=== PATIENT | female | born 1940 | race Caucasian/White ===

== ENCOUNTER → 2016-11-09 | Outpatient (CLI) | payer BC ==
[~2016-11-09] MED LIST: ASPI81TA28 PO; COEN150C PO; CRG625 PO; EZET10TA63 PO; FLAX100025 PO; GLUC10007 PO; LEVO100T PO; LPT10 PO; OXYC-57 PO; PLV75 PO; SYN75 PO; TRAM-10 PO; VALS-56 PO
--- NOTE | 2016-11-09 12:15 | DIAGNOSTIC IMAGING REPORT ---
BILATERAL CAROTID DOPPLER STUDY HISTORY: CAROTID BILATERAL BRUIT COMPARISON: None. TECHNIQUE: Real-time, grayscale, and color Doppler sonography of the carotid arteries was performed. Imaging reviewed in the transverse and longitudinal planes. All measurements were calculated based on NASCET criteria. FINDINGS: Antegrade flow is seen in the bilateral vertebral arteries. The brachial pressures are hemodynamically similar. Considerable plaque formation bilaterally The peak systolic velocity within the right ICA is 241. The right systolic ratio is 4.5. The peak systolic velocity within the left ICA is 347. The left systolic ratio is 3.7. IMPRESSION: 1. Considerable plaque formation bilaterally. 2. 90% stenosis left internal carotid artery. 3. 80% stenosis right internal carotid artery. 4. significant stenotic change of the extracranial carotid arteries bilaterally Electronically signed by: Josiah Granados M.D. 11/09/2016 12:14 PM Dictated Date/Time: 11/09/2016 12:12 PM
== END ==
LOC: C.ULTR 11:22
PROVIDERS: ATTEND Internal Medicine
DX: R09.89 Other specified symptoms and signs involving the circulatory and respiratory systems (principal); I65.23 Occlusion and stenosis of bilateral carotid arteries

== ENCOUNTER 2016-11-24 11:24 | Inpatient (IN) | payer BC, OTHER ==
[~2016-11-24] VITALS: Ht 162.6 cm; Wt 54.4 kg
[~2016-11-24 11:24] MED LIST changes: -EZET10TA63 PO; -LPT10 PO; -OXYC-57 PO; -PLV75 PO; -SYN75 PO; -VALS-56 PO
[2016-11-24 12:12] LABS: HEMATOCRIT 40.7 % (37-47); MEAN CELL VOLUME 91.1 fL (80-100); MEAN CORPUSCULAR HEMOGLOBIN 29.3 pg (25-34); MEAN CORPUSCULAR HGB CONC 32.2 g/dl (32-36); MEAN PLATELET VOLUME 9.5 fL (7.4-10.4); PLATELET COUNT 267 K/uL (130-400); RED BLOOD COUNT 4.47 M/uL (4.2-5.4); WHITE BLOOD COUNT 5.01 K/uL (4.8-10.8)
[2016-11-24 12:22] LABS: PARTIAL THROMBOPLASTIN RATIO 1.1; PROTHROMBIN TIME (PATIENT) 10.9 SECONDS (9.0-12.0)
[2016-11-24 12:33] LABS: BUN/CREATININE RATIO 24.6 (10-20); CREATININE 0.84 mg/dl (0.60-1.20); POTASSIUM 4.1 mmol/L (3.5-5.1)
[2016-11-24 12:35] LABS: ALB/GLOB RATIO 1.2 (0.9-2)
--- NOTE | 2016-11-24 13:33 | DIAGNOSTIC IMAGING REPORT ---
HEAD CT NONCONTRAST CT DOSE: 614.27 mGy.cm HISTORY: Right hand numbness. Right facial droop. TECHNIQUE: Multiaxial CT images of the head were performed without the use of intravenous contrast. Automated exposure control was utilized for this study. Comparison: Brain MRI 12/29/2009. Findings: The paranasal sinuses and mastoid air cells are clear. The calvarium and skull base are intact. There is no mass, hematoma, midline shift, acute infarct. White matter hypodensity is nonspecific but suggestive of microvascular ischemic change. The ventricles and sulci are within normal limits for age. Impression: No acute intracranial abnormality. Mild microvascular ischemic changes are again noted. Electronically signed by: Dru Frazier M.D. 11/24/2016 1:32 PM Dictated Date/Time: 11/24/2016 1:27 PM
[2016-11-24] MEDS ORDERED: ASPIRIN 81 MG CHEW PO STA (13:39)
[2016-11-24] MEDS ORDERED: VALS-56 PO (14:09)
[2016-11-24] MEDS ORDERED: SYN75 PO (14:09)
[2016-11-24] MEDS ORDERED: LPT10 PO (14:12)
[2016-11-24] MEDS ORDERED: MAGNESIUM HYDROXIDE SUSP 30 ML UDC PO PRN (14:45)
[2016-11-24] MEDS ORDERED: ACETAMINOPHEN 325 MG TAB PO PRN (14:45)
[2016-11-24] MEDS ORDERED: TRAMADOL HCL 50 MG TAB PO PRN (14:45)
[2016-11-24] MEDS ORDERED: ONDANSETRON INJ 2 MG/ML 2 ML VIAL IV PRN (14:45)
[2016-11-24] MEDS ORDERED: POLYETHYLENE (MIRALAX) 17 GM PACK PO PRN (14:45)
[2016-11-24] MEDS ORDERED: ALUMINUM/MAGNESIUM/SIMETH (MAALOX MAX) 30 ML UDC PO PRN (14:45)
--- NOTE | 2016-11-24 16:07 | History and Physical ---
History & Physical Date & Time of Service: November 24, 2016 at 15:49 Chief Complaint: Rt Hand Numb, Tongue Numb Primary Care Physician: Dheeraj Cancino M.D. History of Present Illness Source: patient 76 y/o F Hx B/L carotid stenosis, breast CA, Hypothyroidism, HPL, chemo-related cardiomyopathy . Pt recently underwent a carotid US revealing 80% stenosis on R and 90% on L. She had an appt with vascular surgery in the coming week. The pt developed R sided numbness limited to her R arm, R tongue and R LE. She denies CP, palpitations, SOB, MÁRQUEZ or visual changes. Her symptoms have resolved at the time of admission. 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 - no recent echo - 2004 echo with EF 25-30% Surgical Problems: (1) History of modified radical mastectomy of left breast Permanent Comment: 07/11/1996 Status: Resolved (2) History of partial hysterectomy Permanent Comment: 07/11/1980 Status: Resolved Family History Cancer Heart disease Lung disease Social History Smoking Status: Former Smoker Drug Use: none Marital Status: Occupational Status: retired Immunizations History of Tetanus Vaccine?: Unknown History of Pneumococcal: No History of Hepatitis B Vaccine: No Multi-Drug Resistant Organisms History of MDRO: No Allergies Coded Allergies: Ciprofloxacin (Unverified Allergy, Severe, SISTER ALMOST . DOESN'T WANT THE RISK, 11/24/16) Propylthiouracil (Verified Allergy, Mild, 11/24/16) Doxycycline (Verified Allergy, Unknown, UNKNOWN, 11/24/16) Statins (Verified Allergy, Unknown, MUSCLE PAIN, 11/24/16) Uncoded Allergies: SULFA (Allergy, Unknown, RASH, 08/05/14) Home Medications Scheduled Aspirin (Aspirin Ec), 81 MG PO DAILY Atorvastatin (Atorvastatin Calcium), 0.5 TAB PO DAILY Carvedilol (Carvedilol), 6.25 MG PO BID Coenzyme Q10 (Ubidecarenone) (Co Q-10), 200 MG PO QAM Flaxseed (Linseed) (Flax Seed Oil), 1,000 MG PO TID Levothyroxine Sodium (Synthroid), 1 TAB PO DAILY Valsartan (Valsartan), 1 TAB PO DAILY Scheduled PRN Tramadol (Ultram), 50 MG PO Q4H PRN for Pain Review of Systems Constitutional: No chills, No fever, No sweats Eyes: No eye pain, No worsening of vision ENT: No hearing loss, No nasal symptoms, No unusual epistaxis Respiratory: No cough, No sputum, No wheezing Cardiovascular: No PND, No chest pain, No orthopnea Abdomen: No nausea, No pain, No vomiting Musculoskeletal: No joint pain, No muscle pain Genitourinary - Female: No dysuria, No hematuria, No urinary frequency, No urinary incontinence, No urinary retention, No urinary urgency Neurologic: + numbness/tingling, No memory loss, No paralysis, No weakness Psychiatric: No depression symptoms Endocrine: No fatigue Hematologic / Lymphatic: No abnormal bleeding/bruising Integumentary: No rash Allergic / Immunologic: No environmental allergies Physical Exam Vital Signs Date Time Temp Pulse Resp B/P Pulse Ox O2 Delivery O2 Flow Rate FiO2 11/24/16 15:43 75 18 155/71 96 Room Air 11/24/16 14:54 66 18 133/87 100 Room Air 11/24/16 12:47 64 18 129/76 95 Room Air 11/24/16 12:19 65 11/24/16 11:53 100 11/24/16 11:28 36.7 71 18 142/79 100 Room Air General Appearance: WD/WN, no apparent distress Head: normocephalic, atraumatic Eyes: normal inspection, PERRL, EOMI ENT: normal ENT inspection, pharynx normal Neck: supple, no JVD Respiratory/Chest: chest non-tender, lungs clear, normal breath sounds, no respiratory distress, no accessory muscle use Cardiovascular: regular rate, rhythm, no edema, no gallop, no JVD, no murmur, normal peripheral pulses Abdomen/GI: normal bowel sounds, non tender, soft Back: normal inspection, no CVA tenderness Extremities/Musculoskelatal: normal inspection, no calf tenderness, normal capillary refill, no pedal edema, normal range of motion 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, alert, normal mood/affect, oriented x 3, + pertinent finding (Pt may have a very slight drift on the R - distal R numbness on lat aspect of dorsal palm - coordination is largely intact ) Skin: normal color, warm/dry Diagnostics Laboratory Results Results Past 24 Hours Test 11/24/16 11:55 Range/Units White Blood Count 5.01 4.8-10.8 K/uL Red Blood Count 4.47 4.2-5.4 M/uL Hemoglobin 13.1 12.0-16.0 g/dL Hematocrit 40.7 37-47 % Mean Corpuscular Volume 91.1 80-100 fL Mean Corpuscular Hemoglobin 29.3 25-34 pg Mean Corpuscular Hemoglobin Concent 32.2 32-36 g/dl RDW Standard Deviation 43.0 36.4-46.3 fL RDW Coefficient of Variation 12.8 11.5-14.5 % Platelet Count 267 130-400 K/uL Mean Platelet Volume 9.5 7.4-10.4 fL Prothrombin Time 10.9 9.0-12.0 SECONDS Prothromb Time International Ratio 1.0 0.9-1.1 Activated Partial Thromboplast Time 27.3 21.0-31.0 SECONDS Partial Thromboplastin Ratio 1.1 Sodium Level 140 136-145 mmol/L Potassium Level 4.1 3.5-5.1 mmol/L Chloride Level 104 98-107 mmol/L Carbon Dioxide Level 33 21-32 mmol/L Anion Gap 3.0 3-11 mmol/L Blood Urea Nitrogen 21 7-18 mg/dl Creatinine 0.84 0.60-1.20 mg/dl Est Creatinine Clear Calc Drug Dose 49.7 ml/min Estimated GFR () 78.8 Estimated GFR (Non- 68.0 BUN/Creatinine Ratio 24.6 10-20 Random Glucose 94 70-99 mg/dl Calcium Level 9.0 8.5-10.1 mg/dl Total Bilirubin 0.7 0.2-1 mg/dl Aspartate Amino Transf (AST/SGOT) 18 15-37 U/L Alanine Aminotransferase (ALT/SGPT) 20 12-78 U/L Alkaline Phosphatase 75 45-117 U/L Total Protein 7.0 6.4-8.2 gm/dl Albumin 3.8 3.4-5.0 gm/dl Globulin 3.2 2.5-4.0 gm/dl Albumin/Globulin Ratio 1.2 0.9-[address] head - non acute findings Carotid Doppler - B/L stenosis - 90% L Impression Assessment and Plan 76 y/o F Hx B/L carotid stenosis, breast CA, Hypothyroidism, HPL, chemo-related cardiomyopathy. Pt recently underwent a carotid US revealing 80% stenosis on R and 90% on L. She had an appt with vascular surgery in the coming week. The pt developed R sided numbness limited to her R arm, R tongue and R LE. She denies CP, palpitations, SOB, MÁRQUEZ or visual changes. Her symptoms have resolved at the time of admission. 1) TIA - likely related to carotid stenosis - vascular contacted and made aware - will see pt AM - placed on ASA and Statin Tx. MRI/MRA pending. She is only able to tolerate a low dose of stating as she hay myalgias with a higher dose. 2) HPL - low dose Statin as tolerated 3) Hypothyroid - cont Synthroid 4) History states she had severe chemo-related cardiomyopathy previously which may have improved. She will remain on Coreg - ARB held due to TIA. Pt is euvolemic. Total time for this admit including review of labs, meds, records, imaging - discussion with pt, ER attending and vascular surgeon - 38 min VTE Prophylaxis VTE Risk Assessment Done? Y/N: Yes Risk Level: Moderate
[2016-11-24 16:32] VITALS: BP 148/75; PULSE 71; TEMP 36.7; O2SAT 98; Ht 162.6 cm; Wt 54.4 kg
[2016-11-24] MEDS: D5W AND NSS 1,000 ML IV SCH (18:23)
[2016-11-24 18:59] VITALS: BP 109/63; PULSE 68; TEMP 36.8; O2SAT 97
--- NOTE | 2016-11-24 20:12 | EMERGENCY ROOM VISIT NOTE ---
History Report prepared by [place]ade: Edvin Joseph Under the Supervision of: Dr. Carmine Oneil M.D. First contact with patient: 12:46 Chief Complaint: NEURO SYMPTOMS Stated Complaint: RT HAND NUMB, TONGUE NUMB Nursing Triage Summary: pt c/o right hand getting numb then rubbed it got better then right side of tongue numb sx now resolved, sx started at 1045 History of Present Illness The patient is a 76 year old female who presents to the Emergency Room with and complains of constant neurological problems beginning prior to arrival. The patient states that she currently feels great and has no current numbness or tingling. She notes that the numbness in her right hand lasted 2 minutes and then the numbness when to her right arm for 5 minutes. José Luis notes that the patient presented facial droop, but she states that she did not have trouble speaking. The patient reports that she has never had symptoms like this before. She notes that she has a history of high cholesterol, breast cancer, CHF, and a TIA. The patient states that she stopped taking baby aspirin because she said it gave her more problems. Pt denies LOC, headache, fevers, chills, diaphoresis , visual changes, neck pain, chest pain, breathing difficulties, nausea, vomiting, abdominal pain, back pain, melena, hematochezia, urinary symptoms, numbness, weakness, lymphadenopathy, rash, or other complaints. Source of History: patient Onset: prior to arrival Position: head Quality: other (neurological) Timing: constant Review of Systems See HPI for pertinent positives and negatives. A total of ten systems were reviewed and were otherwise negative. Past Medical & Surgical Medical Problems: (1) Arthritis (2) Carotid stenosis, bilateral (3) Dyslipidemia (4) HX: breast cancer (5) Hypothyroidism (6) TIA (transient ischemic attack) Surgical Problems: (1) History of modified radical mastectomy of left breast (2) History of partial hysterectomy Family History Cancer Heart disease Lung disease Social History Smoking Status: Former Smoker Drug Use: none Marital Status: Housing Status: lives with family Occupation Status: retired Current/Historical Medications Scheduled Aspirin (Aspirin Ec), 81 MG PO DAILY Atorvastatin (Atorvastatin Calcium), 0.5 TAB PO DAILY Carvedilol (Carvedilol), 6.25 MG PO BID Coenzyme Q10 (Ubidecarenone) (Co Q-10), 200 MG PO QAM Flaxseed (Linseed) (Flax Seed Oil), 1,000 MG PO TID Levothyroxine Sodium (Synthroid), 1 TAB PO DAILY Valsartan (Valsartan), 1 TAB PO DAILY Scheduled PRN Tramadol (Ultram), 50 MG PO Q4H PRN for Pain Allergies Coded Allergies: Ciprofloxacin (Unverified Allergy, Severe, SISTER ALMOST . DOESN'T WANT THE RISK, 11/24/16) Propylthiouracil (Verified Allergy, Mild, 11/24/16) Doxycycline (Verified Allergy, Unknown, UNKNOWN, 11/24/16) Statins (Verified Allergy, Unknown, MUSCLE PAIN, 11/24/16) Uncoded Allergies: SULFA (Allergy, Unknown, RASH, 08/05/14) Physical Exam Vital Signs Date Time Temp Pulse Resp B/P Pulse Ox O2 Delivery O2 Flow Rate FiO2 11/24/16 12:47 64 18 129/76 95 Room Air 11/24/16 12:19 65 11/24/16 11:53 100 11/24/16 11:28 36.7 71 18 142/79 100 Room Air Physical Exam GENERAL: Awake, alert, well appearing, no distress HENT: Normocephalic, atraumatic. TM's normal. Oropharynx unremarkable. EYES: PERRL. EOMI. Normal conjunctiva. Sclera non-icteric. NECK: Supple. No nuchal rigidity. FROM. No JVD. Bruit bilateral. RESPIRATORY: CTA CARDIAC: RRR. No murmur. ABDOMEN: Soft, non distended. No tenderness to palpation. No rebound or guarding. No masses. RECTAL: Deferred. MUSCULOSKELETAL: Unremarkable. No edema. No discoloration. Gross motor strength symmetric. NEURO: Cranial nerves 2-12 grossly intact. Normal sensorium. No sensory or motor deficits noted. Speech normal. No pronator drift. Negative rhomberg. SKIN: No rash or jaundice noted. LYMPH: No adenopathy. Medical Decision & Procedures ER Provider Diagnostic Interpretation: Radiology results as stated below per my review and radiologist interpretation HEAD CT NONCONTRAST CT DOSE: 614.27 mGy.cm HISTORY: Right hand numbness. Right facial droop. TECHNIQUE: Multiaxial CT images of the head were performed without the use of intravenous contrast. Automated exposure control was utilized for this study. Comparison: Brain MRI 12/29/2009. Findings: The paranasal sinuses and mastoid air cells are clear. The calvarium and skull base are intact. There is no mass, hematoma, midline shift, acute infarct. White matter hypodensity is nonspecific but suggestive of microvascular ischemic change. The ventricles and sulci are within normal limits for age. Impression: No acute intracranial abnormality. Mild microvascular ischemic changes are again noted. Electronically signed by: Dru Frazier M.D. 11/24/2016 1:32 PM Dictated Date/Time: 11/24/2016 1:27 PM Laboratory Results 11/24/16 11:55 11/24/16 11:55 Test 11/24/16 11:55 Red Blood Count 4.47 M/uL (4.2-5.4) Mean Corpuscular Volume 91.1 fL (80-100) Mean Corpuscular Hemoglobin 29.3 pg (25-34) Mean Corpuscular Hemoglobin Concent 32.2 g/dl (32-36) RDW Standard Deviation 43.0 fL (36.4-46.3) RDW Coefficient of Variation 12.8 % (11.5-14.5) Mean Platelet Volume 9.5 fL (7.4-10.4) Prothrombin Time 10.9 SECONDS (9.0-12.0) Prothromb Time International Ratio 1.0 (0.9-1.1) Activated Partial Thromboplast Time 27.3 SECONDS (21.0-31.0) Partial Thromboplastin Ratio 1.1 Anion Gap 3.0 mmol/L (3-11) Est Creatinine Clear Calc Drug Dose 49.7 ml/min Estimated GFR () 78.8 Estimated GFR (Non- 68.0 BUN/Creatinine Ratio 24.6 (10-20) Calcium Level 9.0 mg/dl (8.5-10.1) Total Bilirubin 0.7 mg/dl (0.2-1) Aspartate Amino Transf (AST/SGOT) 18 U/L (15-37) Alanine Aminotransferase (ALT/SGPT) 20 U/L (12-78) Alkaline Phosphatase 75 U/L (45-117) Total Protein 7.0 gm/dl (6.4-8.2) Albumin 3.8 gm/dl (3.4-5.0) Globulin 3.2 gm/dl (2.5-4.0) Albumin/Globulin Ratio 1.2 (0.9-2) Laboratory results reviewed by me Medications Administered Medications (Trade) Dose Ordered Sig/Calli Route Start Time Stop Time Status Last Admin Dose Admin Aspirin (Aspirin Chew) 324 mg NOW STAT PO 11/24/16 13:39 11/24/16 13:40 DC 11/24/16 13:55 324 MG ECG Indication: weakness Rate (beats per minute): 66 Rhythm: sinus rhythm Findings: Q waves (Septal), no acute ischemic change, no ectopy ED Course 1257: The patient was evaluated in room B10. A complete history and physical exam was performed. 1339: Ordered Aspirin 324mg PO 1340: Upon reexamination, the patient was resting easy. I discussed the test results and treatment plan with Reuben Liu. The patient will be evaluated for further management. Medical Decision Triage Nursing notes reviewed. The patient's presentation and history were concerning for neurologic symptoms. Etiologies such as CVA, TIA, metabolic, infection, hypo/hyperglycemia, electrolyte abnormalities, cardiac sources, intracerebral event, toxicologic, neurologic, as well as others were entertained. The patient was evaluated. She had strokelike symptoms that have resolved. She does have pretty significant bruits on physical examination and notes pending vascular surgery evaluation. Her CBC, chemistry panel, LFTs, EKG and CT were unremarkable. The patient was given aspirin. Given her findings the patient will need further evaluation and management in the hospital as she is very high risk for stroke. Consultation was made with internal medicine. The patient was informed. I did have case management meet with the patient as she had some concerns about her admission status. The chart was completed utilizing [employer] Speech voice recognition software. Grammatical errors, random word insertions, pronoun errors, and incomplete sentences are an occasional consequence of this system due to software limitations, ambient noise, and hardware issues. Any formal questions or concerns about the content, text, or information contained within the body of this dictation should be directly addressed to the physician for clarification. Consults Time Called: 1337 Consulting Physician: Mario Liuist Returned Call: 1340 I discussed the patient's case with Reuben Liu. The patient will be evaluated for further treatment. Impression Primary Impression: Stroke-like symptoms Additional Impression: Carotid stenosis Scribe Attestation The scribe's documentation has been prepared under my direction and personally reviewed by me in its entirety. I confirm that the note above accurately reflects all work, treatment, procedures, and medical decision making performed by me. Departure Information Dispostion Being Evaluated By Hospitalist Referrals Dheeraj Cancino M.D. (PCP) Patient Instructions [facility] Problem Qualifiers
[2016-11-24] MEDS: HEPARIN SOD 5000 UNIT/0.5 ML CARP SQ SCH (20:59)
[2016-11-24] MEDS: CARVEDILOL 6.25 MG TAB PO SCH (20:59)
[2016-11-24 23:21] VITALS: BP 119/71; PULSE 74; TEMP 36.4; O2SAT 99
[2016-11-25 03:30] VITALS: BP 119/71; PULSE 74; TEMP 36.4; O2SAT 99
[2016-11-25] MEDS: D5W AND NSS 1,000 ML IV SCH (04:05)
[2016-11-25] MEDS: LEVOTHYROXINE 75 MCG TAB PO SCH ×2 (05:48→10:20)
[2016-11-25] MEDS: HEPARIN SOD 5000 UNIT/0.5 ML CARP SQ SCH ×2 (06:14→14:00)
[2016-11-25 07:08] VITALS: BP 117/71; PULSE 71; TEMP 36.9; O2SAT 99
[2016-11-25 08:00] VITALS: O2SAT 99
[2016-11-25] MEDS: CARVEDILOL 6.25 MG TAB PO SCH (08:59)
[2016-11-25] MEDS ORDERED: ASPIRIN 81 MG ECTAB PO SCH (09:00)
[2016-11-25] MEDS ORDERED: CLOPIDOGREL BISULFATE 75 MG TAB PO ONE (09:00)
[2016-11-25] MEDS ORDERED: ATORVASTATIN 10 MG TAB PO SCH (09:00)
[2016-11-25] MEDS ORDERED: PLV75 PO (09:03)
--- NOTE | 2016-11-25 09:05 | Surgery Consultation ---
Consultation Date of Service November 25, 2016. Chief Complaint Bilateral carotid stenosis with left hemisphere tia History of Present Illness The patient is a 76 year old female who was admitted yesterday after developing numbness of her right hand followed by numbness of the right side of her tongue. This has all resolved. She denies any speech difficulty or extremity weakness. She does not know if she had any facial droop at the time. The tia last just a few minutes and then resolved. She denies any residual at this time. Vitals Vital Signs Past 12 Hours Date Time Temp Pulse Resp B/P Pulse Ox O2 Delivery O2 Flow Rate FiO2 11/25/16 08:00 99 Room Air 11/25/16 07:08 36.9 71 20 117/71 99 Room Air 11/25/16 03:30 Room Air 11/25/16 03:30 36.4 74 16 119/71 99 Room Air 11/24/16 23:30 Room Air 11/24/16 23:21 36.4 74 16 119/71 99 Room Air Allergies Coded Allergies: Ciprofloxacin (Unverified Allergy, Severe, SISTER ALMOST . DOESN'T WANT THE RISK, 11/24/16) Propylthiouracil (Verified Allergy, Mild, 11/24/16) Doxycycline (Verified Allergy, Unknown, UNKNOWN, 11/24/16) Statins (Verified Allergy, Unknown, MUSCLE PAIN, 11/24/16) Uncoded Allergies: SULFA (Allergy, Unknown, RASH, 08/05/14) Home Medications Scheduled Aspirin (Aspirin Ec), 81 MG PO DAILY Atorvastatin (Atorvastatin Calcium), 0.5 TAB PO DAILY Carvedilol (Carvedilol), 6.25 MG PO BID Clopidogrel Bisulfate (Clopidogrel), 75 MG PO QAM Coenzyme Q10 (Ubidecarenone) (Co Q-10), 200 MG PO QAM Flaxseed (Linseed) (Flax Seed Oil), 1,000 MG PO TID Levothyroxine Sodium (Synthroid), 1 TAB PO DAILY Valsartan (Valsartan), 1 TAB PO DAILY Scheduled PRN Tramadol (Ultram), 50 MG PO Q4H PRN for Pain Problem List Medical Problems: (1) Arthritis (2) Carotid stenosis, bilateral (3) Dyslipidemia (4) HX: breast cancer (5) Hypothyroidism (6) TIA (transient ischemic attack) Surgical Problems: (1) History of modified radical mastectomy of left breast (2) History of partial hysterectomy Surgical / Medical History Hx Cardiac Surgery: No Hx Abdominal Surgery: Yes (C-SECTIONS, HYSTERECTOMY) Hx Cancer Surgery: Yes (LEFT MASTECTOMY AND LYMPHADECTOMY) Hx Thoracic Surgery: Yes (LEFT MASTECTOMY AND LYMPHADECTOMY) Hx Orthopedic: No Hx Urinary Tract Surgery: No Past Medical/Surgical History: Arthritis, Cancer (breast), CHF, High Cholesterol, Thyroid Disease, Other (cardiomyopathy) Family History Cancer Heart disease Lung disease Social History Smoking Status: Former Smoker Hx Tobacco Use In Past Year?: No Hx Alcohol Use - Type & Amnt: No Hx Substance Use -Type & Amnt: No Review of Systems Constitutional: No chills, No diaphoresis, No fatigue, No fever, No malaise, No problem reported, No sweats, No weakness, No weight gain, No weight loss Respiratory: No MEYER, No PND, No cough, No cyanosis, No dyspnea, No hemoptysis, No orthopnea, No problem reported, No short of breath, No sputum production, No stridor, No wheezing Cardiovascular: No chest pain, No chest pressure, No chest tightness, No cyanosis, No diaphoresis, No edema, No intermittent claudication, No lightheadedness, No mumur, No orthopnea, No palpitations, No paroxysmal nocturnal dyspnea, No problem reported, No syncope Gastrointestinal: No abdominal pain, No anorexia, No appetite changes, No belching, No constipation, No diarrhea, No dysphagia, No flatulence, No food intolerance, No heartburn, No hematemesis, No hematochezia, No hemorrhoids, No indigestion, No nausea, No problem reported, No rectal bleeding, No stool changes, No vomiting Genitourinary - Female: No breast problems, No dysmenorrhea, No dysuria, No hematuria, No hesitancy, No menorrhagia, No metrorrhagia, No , No problem reported, No rash, No urinary frequency, No urinary incontinence, No urinary retention, No urinary urgency, No vaginal bleeding, No vaginal discharge , No vaginal itching, No vulvadynia Musculoskeletal: No back pain, No gout, No joint pain, No joint swelling, No muscle pain, No muscle stiffness, No muscle weakness, No neck pain, No problem reported Neurologic: No LOC, No dizziness, No headache, No lethargy, No memory loss, No numbness, No paresthesia, No pre-existing deficit, No problem reported, No seizures, No tics, No tingling, No tremors, No vertigo, No weakness Psychiatric: No alcohol abuse, No anxiety, No auditory hallucinations, No depression, No drug abuse, No homicidal ideation, No mood changes, No problem reported, No suicidal ideation, No visual hallucinations Physical Exam Constitutional: General Apperance: heathly-appearing, well-nourished, well-developed Level of Distress: NAD Ambulation: ambulating normally Psychiatric: Mental Status: active & alert, normal mood, normal affect Orientation: oriented except where noted, to time, to place, to person Memory: recent memory normal, remote memory normal Head: normocephalic, atraumatic Lungs: Auscultation: breath sounds normal Cardiovascular: Heart Auscultation: RRR Peripheral Pulses: Bruits: carotid bruit on the left, carotid bruit on the right Carotid Pulse: normal on the left, normal on the right Radial Pulse: normal on the left, normal on the right Femoral Pulse: normal on the left, normal on the right Abdomen: Inspection & Palpation: soft Musculoskeletal: normal, normal strength (5/5 throughout), normal tone Extremities: Upper Right: no cyanosis, no edema, no varicosities, no palpable cord, no clubbing, no ulcers, no mottling Upper Left: no cyanosis, no edema, no palpable cord, no clubbing, no ulcers , no mottling Lower Right: no cyanosis, no edema, no varicosities, no palpable cord, no clubbing, no ulcers, no mottling Lower Left: no cyanosis, no edema, no varicosities, no palpable cord, no clubbing, no ulcers, no mottling Neurologic: Cranial Nerves: grossly intact Sensation: grossly intact Assessment and Plan Imp: Bilateral internal carotid artery stenosis with left hemisphere tia Plan: Patient to have CTA of neck and head today. Cardiac consult ordered for pre op for CEA. History of cardiomyopathy We well see her in the office Tuesday and most likely plan on CEA next Tuesday. Will start her on plavix and will continue it through surgery. Thank you very much for letting me participate in the care of this patient.
--- NOTE | 2016-11-25 09:07 | Discharge Instructions ---
Discharge Instructions Date of Service November 25, 2016. Admission Reason for Admission: Carotid Stenosis, Tia Discharge Discharge Diagnosis / Problem: TIA, bilateral carotid stenosis Discharge Goals Goal(s): Improve function, Therapeutic intervention (plan for carotid endarterectomy next week) Activity Recommendations Activity Limitations: resume your previous activity Lifting Limitations: none Exercise/Sports Limitations: as tolerated Shower/Bathe: no limitations . Instructions / Follow-Up Instructions / Follow-Up Medications: - PLAVIX: started here in the hospital, 75mg daily, this replaces aspirin so you should stop taking aspirin 81mg daily continue all other previous medications FOLLOW UP - Dr. Sutton on Tuesday to discuss carotid endarterectomy Risk Factors for Stroke: You can reduce your chances of stroke by working with your medical provider to adopt a healthy lifestyle. Some specific ways to lower your chance of stroke are: * If you are a smoker, now is the time to stop smoking cigarettes * If you are diabetic, improve the control of your blood sugars * Avoid excessive amounts of alcohol * Control high blood pressure * Lose weight if you are overweight * Be sure to lead an active lifestyle * Eat a healthy diet low in salt, cholesterol and fat You should know about other risk factors for stroke that you are unable to control. These include: * Age 55 years or older * Male gender * Certain racial groups: , or / * Family History of Stroke, Mini stroke or Heart Attack * Sickle Cell Disease Follow Up: It is important for you to keep your follow up appointments with your medical provider. Current Hospital Diet Patient's current hospital diet: AHA Diet (Heart Healthy) Discharge Diet Recommended Diet: AHA Diet (Heart Healthy) Pending Studies Studies pending at discharge: no Laboratory Results Last Resulted CBC 11/24/16 11:55 Last Resulted BMP 11/24/16 11:55 Medical Emergencies . Who to Call and When: Medical Emergencies: Call 911 immediately if you experience any of the following warning signs and symptoms of Stroke: * Sudden numbness or weakness of the face, arm or leg, especially on one side of the body * Sudden confusion, trouble speaking or understanding * Sudden trouble seeing in one or both eyes * Sudden trouble walking, dizziness, loss of balance or coordination * Sudden severe headache with no cause Do not delay calling 911 if you experience any warning signs or symptoms of a stroke. Delay in seeking medical attention may affect what treatments can be given to you. . Non-Emergent Contact Non-Emergency issues call your: Surgeon Call Non-Emergent contact if: you have any medication questions . . "Provider Documentation" section prepared by Haja Jimenez. . Supervisor Sample Recommendations Supervisor Sample Recommendations: Dr. Sutton: recommends CT angiogram head and neck today, cardiology consultation (done in house) and follow up next Tuesday to plan CEA Stroke Core Measures Reason no t-PA for Stroke: Treatment not indicated Reason no antithrom by day 2: Treatment provided - N/A Reason no antithrom at D/C: Treatment provided - N/A Reason no statin at D/C: Treatment provided - N/A Reason no anticoag w/a fib: Treatment not indicated VTE Core Measure Inpt VTE Proph given/why not?: Unfractionated heparin SQ PA Drug Monitoring Program Search Results: no issues identified
[2016-11-25] MEDS ORDERED: OPTIRAY 320 IV PRN (09:15)
--- NOTE | 2016-11-25 11:54 | Discharge Summary ---
Discharge Summary Date of Service November 25, 2016. 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, chemotherapy related Immunizations: History of Tetanus Vaccine?: Unknown History of Pneumococcal: No History of Hepatitis B Vaccine: No Procedures: none Consultations: Cardiology Vascular surgery Medication Reconciliation New Medications: Clopidogrel Bisulfate (Clopidogrel) 75 Mg Tab 75 MG PO QAM, #30 TAB 3 Refills Continued Medications: Atorvastatin (Atorvastatin Calcium) 10 Mg Tab 0.5 TAB PO DAILY Carvedilol (Carvedilol) 6.25 Mg Tab 6.25 MG PO BID Coenzyme Q10 (Ubidecarenone) (Co Q-10) 150 Mg Cap 200 MG PO QAM Flaxseed (Linseed) (Flax Seed Oil) 1 Cap Cap 1000 MG PO TID Levothyroxine Sodium (Synthroid) 75 Mcg Tab 1 TAB PO DAILY BRAND NAME Tramadol (Ultram) 50 Mg Tab 50 MG PO Q4H PRN for Pain Valsartan (Valsartan) 40 Mg Tab 1 TAB PO DAILY Discontinued Medications: Aspirin (Aspirin Ec) 81 Mg Tab 81 MG PO DAILY Discharge Exam Patient feeling much better, she is hungry and has a headache because she needs to eat. Otherwise doing well. Discussed case with Dr. Sutton, he ordered CTA head and neck and asked cardiology to evaluate h/o cardiomyopathy. He will see patient in the office on Tuesday and set up carotid endarterectomy Review of Systems: Constitutional: + problem reported (mild headache), No chills, No fatigue, No fever, No sweats, No weakness, No weight loss Eyes: No diplopia, No discharge, No eye pain, No problem reported, No redness, No worsening of vision ENT: No dental problems, No hearing loss, No nasal symptoms, No problem reported, No sore throat, No tinnitus, No trouble swallowing, No unusual epistaxis Respiratory: No cough, No dyspnea at rest, No dyspnea on exertion, No hemoptysis, No problem reported, No shortness of breath, No sputum, No wheezing Cardiovascular: No PND, No chest pain, No claudication, No edema, No orthopnea, No palpitations, No problem reported Abdomen: No GI bleeding, No constipation, No diarrhea, No nausea, No pain, No problem reported, No vomiting Musculoskeletal: No calf pain, No joint pain, No muscle pain, No problem reported, No swelling Genitourinary - Female: No dysuria, No urinary frequency, No urinary incontinence, No urinary urgency Neurologic: No balance problems, No memory loss, No numbness/tingling, No paralysis, No problem reported, No vertigo, No weakness Psychiatric: No anhedonism, No anxiety, No depression symptoms, No insomnia , No problem reported, No substance abuse Endocrine: No excessive thirst, No excessive urination, No fatigue, No problem reported Hematologic / Lymphatic: No abnormal bleeding/bruising, No clotting problems , No night sweats, No problem reported, No swollen lymph nodes Integumentary: No bleeding, No color change, No itch, No new/changing skin lesions, No problem reported, No rash Physical Exam: General Appearance: WD/WN, no apparent distress Eyes: normal inspection, EOMI, sclerae normal ENT: normal ENT inspection, hearing grossly normal, pharynx normal Neck: supple, no adenopathy, no JVD, trachea midline, + pertinent finding ( bilateral carotid bruits) Respiratory/Chest: chest non-tender, lungs clear, normal breath sounds, no respiratory distress, no accessory muscle use Cardiovascular: regular rate, rhythm, no edema, no gallop, no JVD, no murmur , normal peripheral pulses Abdomen / GI: normal bowel sounds, non tender, soft, no organomegaly Extremities: normal inspection, no calf tenderness, normal capillary refill , no pedal edema, normal range of motion, pelvis stable Neurologic/Psychiatric: renal nurse II-XII nml as tested, no motor/sensory deficits , alert, normal mood/affect, normal reflexes, oriented x 3 Skin: normal color, warm/dry, no rash Hospital Course 76 y/o F Hx B/L carotid stenosis, breast CA, Hypothyroidism, HPL, chemo-related cardiomyopathy. Pt recently underwent a carotid US revealing 80% stenosis on R and 90% on L. She had an appt with vascular surgery in the coming week. The pt developed R sided numbness limited to her R arm, R tongue and R LE. She denies CP, palpitations, SOB, MÁRQUEZ or visual changes. Her symptoms have resolved at the time of admission. 1) TIA - likely related to carotid stenosis - symptoms completely resolved discussed with Dr. Sutton, changed aspirin to Plavix, continue Lipitor check CTA head and neck ask cardiology to evaluate for cardiac clearance prior to CEA next week he will see in office and set up CEA can be d/c home once cardiology evaluates 2) HPL - low dose Statin as tolerated 3) Hypothyroid - cont Synthroid 4) History states she had severe chemo-related cardiomyopathy previously which may have improved. She will remain on Coreg - ARB held due to TIA. Pt is euvolemic. [facility] cardiology will evaluate for cardiac clearance Total Time Spent: Greater than 30 minutes This includes examination of the patient, discharge planning, medication reconciliation, and communication with other providers. Discharge Instructions Please refer to the electronic Patient Visit Report (Discharge Instructions) for additional information. Follow-Up Dr. Sutton on Tuesday to discuss CEA later next week Additional Copies To Krzysztof Aguilar DO; Dheeraj Cancino M.D.; Thom Sutton M.D.
[2016-11-25 12:00] VITALS: O2SAT 99
--- NOTE | 2016-11-25 12:03 | DIAGNOSTIC IMAGING REPORT ---
NECK CTA HISTORY: Carotid stenosis. Transient ischemic attack. TECHNIQUE: Multiaxial CT images of the neck were performed following the intravenous administration of contrast to evaluate the major cervical vessels. Maximum intensity projection images were also obtained. All measurements were calculated based on NASCET criteria. COMPARISON STUDY: Carotid Doppler 11/09/2016. FINDINGS: There is approximately 50% focal stenosis at the proximal right subclavian artery. The proximal to mid bilateral common carotid arteries are widely patent. There is approximately 75% focal stenosis at the distal left common carotid artery immediately proximal to the bifurcation. There is 30% focal stenosis at the proximal left internal carotid artery. There is greater than 90% focal stenosis at the bifurcation of the proximal right internal and external carotid arteries. The mid to distal right internal carotid artery is widely patent. Mild stenosis within the proximal left external carotid artery. The stenosis at the bilateral carotid arteries is due to a combination of calcified and noncalcified plaque at Bilateral vertebral arteries are widely patent. The orbits and visualized brain parenchyma are unremarkable. No significant cervical lymphadenopathy. IMPRESSION: 1. Greater than 90% focal stenosis at the bifurcation of the proximal right internal and external carotid arteries. 2. There is 75% focal stenosis at the distal left common carotid artery and 30% focal stenosis at the proximal left internal carotid artery. 3. 50% focal stenosis at the proximal right subclavian artery. Electronically signed by: Dru Frazier M.D. 11/25/2016 12:01 PM Dictated Date/Time: 11/25/2016 11:55 AM
[2016-11-25 12:15] VITALS: BP 131/76; PULSE 80; TEMP 36.6; O2SAT 96
--- NOTE | 2016-11-25 12:57 | DIAGNOSTIC IMAGING REPORT ---
CT ANGIOGRAM OF THE BRAIN COMBO CLINICAL HISTORY: Transient ischemic attack. COMPARISON STUDY: CT of the brain dated 11/24/2016. TECHNIQUE: Unenhanced axial CT scan of the brain is performed. Subsequently, following the IV administration of 118 cc of Optiray 320, CT angiogram of the brain was performed from the skull base to the vertex. Images are reviewed in the axial, sagittal, and coronal planes. 3-D MIPS images are created and assessed. IV contrast was administered without complication. FINDINGS: Brain parenchyma: There are age-related involutional changes noting mild patchy subcortical and periventricular microangiopathic disease. There is no hemorrhage, mass effect, or evidence of acute territorial ischemia by CT criteria. There is no evidence of enhancing mass lesion on the angiogram phase images. No extra-axial fluid collection is seen. Schmidt-white matter differentiation is preserved. Mineralization is noted in the basal ganglia. Ventricles, sulci, and cisterns: Prominent secondary to involutional change. CT angiogram of the brain: There is atherosclerotic calcification of the cavernous carotid arteries. The internal carotid arteries are widely patent, as are the anterior and middle cerebral arteries. The vertebrobasilar system and posterior cerebral arteries are widely patent. The vertebral arteries are codominant. There is no aneurysm, high-grade stenosis, or focal vessel cutoff identified throughout the intracranial circulation. Dural sinuses: Clear as visualized. Orbits: The bony orbits are intact. The orbital contents are normal as visualized. There are bilateral ocular lens implants. Sinuses and mastoids: The visualized paranasal sinuses are clear. The mastoid air cells are well pneumatized. Calvarium: Unremarkable. IMPRESSION: 1. There is no hemorrhage, mass effect, or evidence of acute territorial ischemia by CT criteria. 2. Unremarkable CT angiogram of the brain. Electronically signed by: Kash Yanez M.D. 11/25/2016 12:56 PM Dictated Date/Time: 11/25/2016 11:56 AM
[2016-11-25 14:03] VITALS: BP 131/76; PULSE 80; TEMP 36.6; O2SAT 96
--- NOTE | 2016-11-25 15:09 | CARDIOLOGY CONSULTATION ---
DATE OF CONSULTATION: 11/25/2016 DATE OF CONSULTATION: 11/25/2016. REFERRING: Dr. Jimenez. PRIMARY CARE PHYSICIAN: Dr. Cancino. INDICATIONS: Preoperative evaluation. Planned carotid endarterectomy. HISTORY OF PRESENT ILLNESS: The patient is a 76-year-old female whose past history is notable for chronic atherosclerotic carotid disease, prior history of remote breast carcinoma, status post mastectomy and chemotherapy 1996 and 1997, history of diffuse cardiomyopathy diagnosed in 2004 with resolve and return to normal LV function, presumed viral etiology. No ischemic origin identified. The patient does carry an underlying history of significant hyperlipidemia with poor statin intolerance with multiple trials per description. She carries a family history of premature coronary disease but denies any personal history of ischemic heart disease, angina, congestive heart failure, myocardial infarction, arrhythmias. Notes no history of valvular heart disease. Notes no decline in functional capacity with good exercise tolerance, performs yoga 3 days a week, walks and exercises, climbs stairs, grocery shops without specific limitation. She has been recently identified to have worsening carotid artery disease with symptoms of transient right arm, tongue and hand numbness with resultant admission and further evaluation. She anticipates referral for carotid endarterectomy in the future and is referred now for preoperative evaluation. On further review of systems she denies fevers, chills, sweats, cough, hoarseness, wheeze or hemoptysis. Did lose approximately 20 pounds in association with hyperactive thyroid iatrogenic in the last 1-2 years' time now resolved. Appetite remains good. She notes no bleeding difficulties. Notes no melena, hematochezia, dysuria or hematuria. She notes she remains very leery of medications. He notes prior trials of multiple statins were poorly tolerated. She is currently taking low dose atorvastatin at 5 mg per day. REVIEW OF SYSTEMS: Otherwise negative. Denies any prior history of complications with surgeries. Notes no history of past TIA or stroke. ALLERGIES: NOTED TO BE CIPRO, PROPYLTHIOURACIL, DOXYCYCLINE AND DESCRIBED SEVERE MYALGIAS WITH PRIOR STATINS AND SULFA. PAST SURGICAL HISTORY: Notable for remote partial hysterectomy and as described modified radical mastectomy left breast in 1996 with associated chemotherapy with Adriamycin and Cytoxan. FAMILY HISTORY: Notable for premature coronary disease in multiple family members including father and mother and paternal uncles. SOCIAL HISTORY: The patient is nonsmoker, nondrinker. Active as described. Does yoga 3 days per week with good tolerance. MEDICATIONS PRIOR TO HOSPITALIZATION: Aspirin 81 mg per day, atorvastatin 5 mg p.o. daily, carvedilol 6.25 mg b.i.d., clopidogrel 75 mg per day, Coenzyme Q10, flaxseed oil, levothyroxine 75 mcg per day, tramadol, and valsartan 40 mg p.o. daily. PHYSICAL EXAMINATION: VITAL SIGNS: Heart rate is 70, blood pressure is 130/76 equal in both arms. HEAD, EYES, EARS, NOSE, AND THROAT EXAMINATION: Normocephalic, atraumatic. Nares without discharge. Throat was clear. NECK: Supple without thyromegaly, lymphadenopathy, JVD. There is a loud right carotid bruit, no audible left carotid bruits. LUNGS: Clear. CARDIOVASCULAR EXAMINATION: Regular with normal S1, S2, no murmur, gallop or rub. PMI is nondisplaced. There is no gallop or rub. ABDOMEN: Soft, nontender. There is no palpable aortic enlargement. EXTREMITIES: Femoral pulses and distal pulses are 24. No femoral bruits. There are intact. Peripheral pulses, dorsalis pedis and posterior tibialis. NEUROLOGIC: The patient is alert, answering questions appropriately currently without deficit. LABORATORY DATA: White cell count is 5.0, hemoglobin is 13.1, hematocrit is 40.7. Sodium is 140, potassium is 4.1, chloride is 104, bicarb is 33, BUN is 21, creatinine is 0.84, AST and ALT are normal. Lipid studies done prior to hospitalization on review on 11/01/2016 demonstrated cholesterol 237, triglyceride 133, HDL 49, LDL 161. Carotid CT demonstrated bilateral carotid artery disease with 90% right bifurcation stenosis, 75% distal left common carotid stenosis. CT scan of the head this admission revealed no acute intracranial abnormalities, mild microvascular changes. EKG reveals sinus rhythm with moderate voltage criteria for left ventricular hypertrophy. No acute changes from prior tracings. IMPRESSION: A 76-year-old female referred for issues as follows: Preoperative evaluation in the setting of bilateral atherosclerotic carotid disease, asymptomatic with recent TIA. The patient denies any signs or symptoms to suggest angina, has had no history of heart failure. LV systolic function is preserved after return to normal following cardiomyopathy in the remote past with last echocardiogram in 2012. Functional capacity is well above 5 mets without angina or heart failure, arrhythmia or valvular disease by history or exam. The patient has mandated procedure and surgery. No contraindications to proceeding from cardiac standpoint. Other issues to address cardiac risk factors discussed in detail with the patient. She is currently being treated for hypertension and a very low dose of statin as best tolerated. I have recommended the addition of ezetimibe to regimen to aid in further reduction of lipids now with identified vascular disease. I have discussed this in detail. The patient is agreeable. Prescription will be provided. This will aid in reduction lipids and if fails to tolerate or if lipids do not come under under control with combination of very low dose statin and ezetimibe may be considered for PSCK9 inhibitor therapies. I have suggested she once again return to cardiology in followup as previously established with Dr. Aguilar.
[2016-11-26] MEDS ORDERED: CLOPIDOGREL BISULFATE 75 MG TAB PO SCH (09:00)
[2016-11-26] MEDS ORDERED: EZETIMIBE 10MG TAB PO SCH (09:00)
== END 2016-11-25 14:27 | disposition home or self-care (01) | DRG 68 ==
LOC: ENRESERVTM → ENRESERVDT → C.EDB 11:27 → C.2T 14:44
PROVIDERS: ADMIT Internal Medicine; ATTEND Internal Medicine
DX: I65.23 Occlusion and stenosis of bilateral carotid arteries (principal); I42.7 Cardiomyopathy due to drug and external agent; R20.0 Anesthesia of skin; T45.1X5S Adverse effect of antineoplastic and immunosuppressive drugs, sequela; I10 Essential (primary) hypertension; E78.5 Hyperlipidemia, unspecified; Z87.891 Personal history of nicotine dependence; Z82.49 Family history of ischemic heart disease and other diseases of the circulatory system; Z79.82 Long term (current) use of aspirin; Z79.02 Long term (current) use of antithrombotics/antiplatelets; Z79.891 Long term (current) use of opiate analgesic; Z79.899 Other long term (current) drug therapy

== ENCOUNTER → 2016-12-03 | Outpatient (CLI) | payer BC ==
[~2016-12-03] MED LIST changes: +EZET10TA63 PO; -GLUC10007 PO; -LEVO100T PO; +LPT10 PO; +OXYC-57 PO; +PLV75 PO; +SYN75 PO; +VALS-56 PO
[2016-12-03 09:29] LABS: CALCIUM 9.4 mg/dl (8.5-10.1)
[2016-12-03 09:32] LABS: ALT/SGPT 22 U/L (12-78); BLOOD UREA NITROGEN 17 mg/dl (7-18); BUN/CREATININE RATIO 20.1 (10-20); CARBON DIOXIDE 31 mmol/L (21-32); CHLORIDE 107 mmol/L (98-107); CHOLESTEROL 136 mg/dl (0-200); CREATININE 0.82 mg/dl (0.60-1.20); GLUCOSE 88 mg/dl (70-99); POTASSIUM 4.3 mmol/L (3.5-5.1); SODIUM 143 mmol/L (136-145); TRIGLYCERIDES 117 mg/dl (0-150); VERY LOW DENSITY LIPOPROT CALC 23 mg/dl
[2016-12-03 09:35] LABS: ALB/GLOB RATIO 1.1 (0.9-2); ALKALINE PHOSPHATASE 67 U/L (45-117); AST/SGOT 13 U/L (15-37); CHOLESTEROL/HDL RATIO 3.2; HDL CHOLESTEROL 42 mg/dl; LDL CHOLESTEROL CALCULATED 71 mg/dl
== END | disposition home or self-care (01) ==
LOC: C.LABFOXMH 08:32
PROVIDERS: ATTEND Internal Medicine
DX: E78.00 Pure hypercholesterolemia, unspecified (principal)

== ENCOUNTER 2016-12-14 16:27 | Inpatient (IN) | payer BC, OTHER ==
[~2016-12-14] VITALS: Ht 162.6 cm; Wt 52.0 kg
[~2016-12-14 16:27] MED LIST changes: -ASPI81TA28 PO; -EZET10TA63 PO; -OXYC-57 PO
[2016-12-14] MEDS ORDERED: SODIUM CHLORIDE 0.9% 1000ML 1,000 ML IV SCH (16:56)
--- NOTE | 2016-12-14 17:06 | EMERGENCY ROOM VISIT NOTE ---
History Report prepared by Shade: Prabhu Blake Under the Supervision of: Dr. Marco A Shaffer D.O. First contact with patient: 16:44 Chief Complaint: NEURO SYMPTOMS Stated Complaint: BLURRED VISION,SOME AFIB History of Present Illness The patient is a 76 year old female who presents to the Emergency Room with complaints of intermittent vision issues starting this past weekend. She had the first episode over the weekend, the second episode yesterday, and her most recent episode this afternoon. The patient describes spots in her vision that are diffusely located in her right vision. She currently denies any pain or vision symptoms. Her vision is at baseline now. She was evaluated by her seed laboratory technician today who referred her to the Emergency Room following talking with her primary care doctor. She has a history of TIA and denies any similar symptoms today. She had right face and right hand numbness with the TIA. She also complains of some intermittent heart palpitations. The palpitations last for about 15 minutes which resolve when she pushes in her stomach. She currently denies any palpitations. She has a history of similar palpitations but has not been officially diagnosed with A-Fib or A-Flutter. She has a history of carotid stenosis with 90% blockage on the right side and 70% blockage on the left side. She was started on Plavix about 3 weeks ago. She has a history of CHF. Pt denies headache, fevers, chest pain, shortness of breath, nausea, vomiting, diarrhea, pain with urination, melena, and numbness/weakness in arms or legs. Source of History: patient Onset: this past Position: eye (right) Symptom Intensity: No pain Quality: other (vision issues) Timing: intermittent Associated Symptoms: No fevers, No headache, No chest pain, No SOB, No nausea, No vomiting, No diarrhea, No weakness, No numbness Review of Systems See HPI for pertinent positives & negatives. A total of 10 systems reviewed and were otherwise negative. Past Medical & Surgical Medical Problems: (1) Arthritis (2) Carotid stenosis, bilateral (3) Dyslipidemia (4) HX: breast cancer (5) Hypothyroidism (6) TIA (transient ischemic attack) Surgical Problems: (1) History of modified radical mastectomy of left breast (2) History of partial hysterectomy Family History Cancer Heart disease Lung disease Social History Smoking Status: Former Smoker Drug Use: none Marital Status: Housing Status: lives with family Occupation Status: retired Current/Historical Medications Scheduled Aspirin (Aspirin Ec), 81 MG PO DAILY Atorvastatin (Atorvastatin Calcium), 0.5 TAB PO DAILY Carvedilol (Carvedilol), 6.25 MG PO BID Clopidogrel Bisulfate (Clopidogrel), 75 MG PO QAM Coenzyme Q10 (Ubidecarenone) (Co Q-10), 200 MG PO BID Ezetimibe (Zetia), 10 MG PO HS Flaxseed (Linseed) (Flax Seed Oil), 1,000 MG PO TID Levothyroxine Sodium (Synthroid), 1 TAB PO DAILY Allergies Coded Allergies: IRVING Inhibitors (Unverified Allergy, Severe, ANGIO EDEMA, 12/14/16) Ciprofloxacin (Unverified Allergy, Severe, SISTER ALMOST . DOESN'T WANT THE RISK, 12/14/16) Propylthiouracil (Verified Allergy, Mild, 12/14/16) Doxycycline (Verified Allergy, Unknown, UNKNOWN, 12/14/16) Statins (Verified Allergy, Unknown, MUSCLE PAIN, 12/14/16) Sulfa Antibiotics (Verified Allergy, Unknown, RASH, 12/14/16) Physical Exam Vital Signs Date Time Temp Pulse Resp B/P (MAP) Pulse Ox O2 Delivery O2 Flow Rate FiO2 12/14/16 18:39 85 18 136/80 97 Room Air 12/14/16 16:59 96 Room Air 12/14/16 16:33 36.7 90 18 131/75 96 Room Air Physical Exam GENERAL: Sitting up in bed, alert, well appearing, well nourished, no distress, non-toxic EYE EXAM: normal conjunctiva OROPHARYNX: no exudate, no erythema, lips, buccal mucosa, and tongue normal and mucous membranes are moist NECK: supple, no nuchal rigidity, no adenopathy, non-tender LUNGS: Clear to auscultation. Normal chest wall mechanics HEART: no murmurs, S1 normal and S2 normal ABDOMEN: abdomen soft, non-tender, normo-active bowel sounds, no masses, no rebound or guarding. BACK: Back is symmetrical on inspection and there is no deformity, no midline tenderness, no CVA tenderness. SKIN: no rashes and no bruising UPPER EXTREMITIES: upper extremities are grossly normal. LOWER EXTREMITIES: No pitting edema. NEURO EXAM: Normal sensorium, cranial nerves II-XII intact, normal speech, no weakness of arms, no weakness of legs. No drift. Finger to nose intact. Gross sensation intact. Medical Decision & Procedures ER Provider Diagnostic Interpretation: X-ray and CT results as stated below per my review and the radiologist's interpretation: CT SCAN OF THE BRAIN WITHOUT IV CONTRAST CLINICAL HISTORY: Blurry vision in the right eye. COMPARISON STUDY: CT of the brain dated 11/25/2016. TECHNIQUE: Unenhanced axial CT scan of the brain is performed from the vertex to the skull base. CT DOSE: 580.48 mGy.cm FINDINGS: Brain parenchyma: There are age-related involutional changes noting moderate patchy subcortical and periventricular microangiopathic change. 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 There is no hemorrhage, mass effect, or evidence of acute territorial ischemia by CT criteria. Schmidt-white matter is preserved. No extra-axial fluid collection is seen. Ventricles, sulci, cisterns: Prominent secondary to involutional change. Intracranial vasculature: There is atherosclerotic calcification of the cavernous carotid arteries. Calvarium: Unremarkable. Sinuses and mastoids: The visualized paranasal sinuses are clear. The mastoid air cells are well pneumatized. Orbits: The bony orbits are grossly intact. Findings suggest previous bilateral ocular lens surgery. IMPRESSION: There is no hemorrhage, mass effect, or evidence of acute territorial ischemia by CT criteria. Electronically signed by: Kash Yanez M.D. 12/14/2016 5:28 PM Dictated Date/Time: 12/14/2016 5:24 PM SINGLE VIEW CHEST CLINICAL HISTORY: Strokelike symptoms. FINDINGS: An AP, portable, upright chest radiograph is compared to study dated 03/12/2007. The examination is degraded by portable technique and patient rotation. The cardiomediastinal silhouette is unremarkable. There is atherosclerotic calcification of the thoracic aorta. Emphysema and chronic interstitial thickening are similar to previous. No airspace consolidation, large pleural effusion, or pneumothorax is seen. The skeletal structures are osteopenic. The bony thorax is grossly intact. Surgical clips are noted in the left axilla. IMPRESSION: Emphysema with no acute cardiopulmonary abnormality. Electronically signed by: Kash Yanez M.D. 12/14/2016 5:17 PM Dictated Date/Time: 12/14/2016 5:15 PM Laboratory Results 12/14/16 16:50 Red Blood Count 4.56, Mean Corpuscular Volume 91.0, Mean Corpuscular Hemoglobin 29.6, Mean Corpuscular Hemoglobin Concent 32.5, Mean Platelet Volume 9.7, Neutrophils (%) (Auto) 69.8, Lymphocytes (%) (Auto) 17.1, Monocytes (%) (Auto) 10.6, Eosinophils (%) (Auto) 1.8, Basophils (%) (Auto) 0.5, Neutrophils # (Auto ) 3.95, Lymphocytes # (Auto) 0.97, Monocytes # (Auto) 0.60, Eosinophils # (Auto ) 0.10, Basophils # (Auto) 0.03 12/14/16 16:50 Test 12/14/16 16:50 12/14/16 17:06 White Blood Count 5.66 K/uL (4.8-10.8) Red Blood Count 4.56 M/uL (4.2-5.4) Hemoglobin 13.5 g/dL (12.0-16.0) Hematocrit 41.5 % (37-47) Mean Corpuscular Volume 91.0 fL (80-100) Mean Corpuscular Hemoglobin 29.6 pg (25-34) Mean Corpuscular Hemoglobin Concent 32.5 g/dl (32-36) Platelet Count 256 K/uL (130-400) Mean Platelet Volume 9.7 fL (7.4-10.4) Neutrophils (%) (Auto) 69.8 % Lymphocytes (%) (Auto) 17.1 % Monocytes (%) (Auto) 10.6 % Eosinophils (%) (Auto) 1.8 % Basophils (%) (Auto) 0.5 % Neutrophils # (Auto) 3.95 K/uL (1.4-6.5) Lymphocytes # (Auto) 0.97 K/uL (1.2-3.4) Monocytes # (Auto) 0.60 K/uL (0.11-0.59) Eosinophils # (Auto) 0.10 K/uL (0-0.5) Basophils # (Auto) 0.03 K/uL (0-0.2) RDW Standard Deviation 44.0 fL (36.4-46.3) RDW Coefficient of Variation 13.4 % (11.5-14.5) Immature Granulocyte % (Auto) 0.2 % Immature Granulocyte # (Auto) 0.01 K/uL (0.00-0.02) Prothrombin Time 10.6 SECONDS (9.0-12.0) Prothromb Time International Ratio 1.0 (0.9-1.1) Activated Partial Thromboplast Time 27.6 SECONDS (21.0-31.0) Partial Thromboplastin Ratio 1.1 Anion Gap 5.0 mmol/L (3-11) Est Creatinine Clear Calc Drug Dose 47.6 ml/min Estimated GFR () 78.8 Estimated GFR (Non- 68.0 BUN/Creatinine Ratio 22.6 (10-20) Calcium Level 9.1 mg/dl (8.5-10.1) Total Creatine Kinase 180 U/L (26-192) Creatine Kinase MB 1.3 ng/ml (0.5-3.6) Creatine Kinase MB Ratio 0.7 (0-3.0) Troponin I < 0.015 ng/ml (0-0.045) Bedside Glucose 82 mg/dl (70-90) Laboratory results per my review. Medications Administered Medications (Trade) Dose Ordered Sig/Calli Route Start Time Stop Time Status Last Admin Dose Admin Sodium Chloride 1,000 ml @ 50 mls/hr Q20H IV 12/14/16 16:56 01/13/17 16:55 12/14/16 17:11 50 MLS/HR ECG Indication: other (Vision issues) Rate (beats per minute): 81 Rhythm: sinus rhythm Findings: Q waves (Septal), other (normal intervals) Comparison ECG Date: November 24, 2016 Change: Septal Q waves are new when compared to November 24, 2016. ED Course ED COURSE: Vital signs were reviewed and showed hypertensive. The patients medical record was reviewed The above diagnostic studies were performed and reviewed. ED treatments and interventions as stated above. 1657: The patient was evaluated in room C05. A complete history and physical examination was performed. Medication Reconciliation: I attest that I have personally reviewed the patient' s current medication list. Blood pressure screening: Patient was found to have an elevated blood pressure and was referred to their primary doctor for recheck and further treatment. 1656: Sodium Chloride 1000 ml @ 50 mls/hr IV 1657: I reevaluated the patient who is resting comfortably. 1711: I discussed the patient's case with Dr. Francois, seed laboratory technician with [facility]. He recommended stopping the Losartan, starting on Aspirin, and instructing her to come to the Emergency Room with any new numbness or weakness. 172: I updated the patient. 1926: I discussed the patient's case with Dr. Willis, from [facility]. Upon reevaluation, the patient is resting comfortably.I discussed my findings with the patient and she understands and agrees with the treatment plan. Based on the patients age, coexisting illnesses, exam and lab findings the decision to treat as an inpatient was made. The patient remained stable while under my care. The patient will be evaluated for further management. Medical Decision Differential Diagnosis includes but is not limited to ischemic Stroke, hemorrhagic stroke, bells palsy, mass, neoplasm, migraine headache, seizure, subarachnoid hemorrhage, TIA, and transient global amnesia. Patient is a 76-year-old female who presents the ER for seeing "amoebi in her right eye" intermittently over the past several days. She has had this for a total of at least 3 episodes. It occurred again today. She did see Dr. roberts from Dr. Brenner's office. She discussed the case with Dr. luong and referred the patient in for further evaluation for possible stroke. Patient was recently in here for a TIA. She has been on Plavix. She does have stenosis of her carotids which are 90 and 70%. She is being evaluated by Dr. Sutton for a carotid endarterectomy. She denies any complete loss of vision. She has no tenderness over temporal arteries. I attempted to contact Dr. Roberts but was unsuccessful as the office was closed. I was able to contact Dr. Brenner who reviewed Dr. Roberts's notes and notes that the note shows that there were floaters but no other acute pathology. I then discussed the case with Dr. Luong who notes that Dr. Roberts thought that the Pt was having a stroke and he agreed and they recommended that she come in for evaluation. Patient collaborates this story. CT head was obtained and was unremarkable. CBC along with BMP, and troponin was unremarkable. INR was unremarkable. At this time eventually uncertain whether this patient is simply having floaters in her eye or this is intermittent strokes with possible A fib or amaurosis faux which I doubt. Case was discussed with internal medicine inpatient will be monitored overnight. Consults Time Called: 170 Consulting Physician: Dr. Francois, seed laboratory technician with [facility] Returned Call: 171 I discussed the patient's case with Dr. Francois, seed laboratory technician with [facility]. He recommended stopping the Losartan, starting on Aspirin, and instructing her to come to the Emergency Room with any new numbness or weakness. Additional Consults: Time Called: 170 Consulted Physician: Dr. Willis, from [facility] Returned Call: 192 Additional Comments: I discussed the patient's case with Dr. Willis, from [facility]. Impression Primary Impression: Vision loss Additional Impression: Possible stroke Scribe Attestation The scribe's documentation has been prepared under my direction and personally reviewed by me in its entirety. I confirm that the note above accurately reflects all work, treatment, procedures, and medical decision making performed by me. Departure Information Dispostion Being Evaluated By Hospitalist Referrals Dheeraj Cancino M.D. (PCP) Patient Instructions My [facility] Problem Qualifiers
[2016-12-14 17:07] LABS: BASO % 0.5 %; BASO ABS # 0.03 K/uL (0-0.2); COMPLETE YES; EOS % 1.8 %; HEMATOCRIT 41.5 % (37-47); IG% 0.2 %; LYMPH % 17.1 %; LYMPH ABS # 0.97 K/uL (1.2-3.4); MEAN CORPUSCULAR HEMOGLOBIN 29.6 pg (25-34); MEAN CORPUSCULAR HGB CONC 32.5 g/dl (32-36); MEAN PLATELET VOLUME 9.7 fL (7.4-10.4); MONO % 10.6 %; NEUT % 69.8 %; PLATELET COUNT 256 K/uL (130-400); RED BLOOD COUNT 4.56 M/uL (4.2-5.4); WHITE BLOOD COUNT 5.66 K/uL (4.8-10.8)
[2016-12-14 17:18] LABS: BLOOD UREA NITROGEN 19 mg/dl (7-18); BUN/CREATININE RATIO 22.6 (10-20); CALCIUM 9.1 mg/dl (8.5-10.1); CARBON DIOXIDE 30 mmol/L (21-32); CHLORIDE 107 mmol/L (98-107); CREATININE 0.84 mg/dl (0.60-1.20); GLUCOSE 91 mg/dl (70-99); PARTIAL THROMBOPLASTIN RATIO 1.1; POTASSIUM 3.9 mmol/L (3.5-5.1); PROTHROMBIN TIME (PATIENT) 10.6 SECONDS (9.0-12.0); SODIUM 142 mmol/L (136-145)
--- NOTE | 2016-12-14 17:18 | DIAGNOSTIC IMAGING REPORT ---
SINGLE VIEW CHEST CLINICAL HISTORY: Strokelike symptoms. FINDINGS: An AP, portable, upright chest radiograph is compared to study dated 03/12/2007. The examination is degraded by portable technique and patient rotation. The cardiomediastinal silhouette is unremarkable. There is atherosclerotic calcification of the thoracic aorta. Emphysema and chronic interstitial thickening are similar to previous. No airspace consolidation, large pleural effusion, or pneumothorax is seen. The skeletal structures are osteopenic. The bony thorax is grossly intact. Surgical clips are noted in the left axilla. IMPRESSION: Emphysema with no acute cardiopulmonary abnormality. Electronically signed by: Kash Yanez M.D. 12/14/2016 5:17 PM Dictated Date/Time: 12/14/2016 5:15 PM
[2016-12-14 17:23] LABS: CKMB/CK RATIO 0.7 (0-3.0)
--- NOTE | 2016-12-14 17:29 | DIAGNOSTIC IMAGING REPORT ---
CT SCAN OF THE BRAIN WITHOUT IV CONTRAST CLINICAL HISTORY: Blurry vision in the right eye. COMPARISON STUDY: CT of the brain dated 11/25/2016. TECHNIQUE: Unenhanced axial CT scan of the brain is performed from the vertex to the skull base. CT DOSE: 580.48 mGy.cm FINDINGS: Brain parenchyma: There are age-related involutional changes noting moderate patchy subcortical and periventricular microangiopathic change. 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 There is no hemorrhage, mass effect, or evidence of acute territorial ischemia by CT criteria. Schmidt-white matter is preserved. No extra-axial fluid collection is seen. Ventricles, sulci, cisterns: Prominent secondary to involutional change. Intracranial vasculature: There is atherosclerotic calcification of the cavernous carotid arteries. Calvarium: Unremarkable. Sinuses and mastoids: The visualized paranasal sinuses are clear. The mastoid air cells are well pneumatized. Orbits: The bony orbits are grossly intact. Findings suggest previous bilateral ocular lens surgery. IMPRESSION: There is no hemorrhage, mass effect, or evidence of acute territorial ischemia by CT criteria. Electronically signed by: Kash Yanez M.D. 12/14/2016 5:28 PM Dictated Date/Time: 12/14/2016 5:24 PM
[2016-12-14] MEDS ORDERED: EZET10TA63 PO (17:58)
[2016-12-14] MEDS ORDERED: ASPI81TA28 PO (17:59)
[2016-12-14] MEDS ORDERED: ACETAMINOPHEN 325 MG TAB PO PRN (21:15)
[2016-12-14] MEDS ORDERED: POLYETHYLENE (MIRALAX) 17 GM PACK PO PRN (21:15)
[2016-12-14] MEDS ORDERED: ONDANSETRON INJ 2 MG/ML 2 ML VIAL IV PRN (21:15)
[2016-12-14] MEDS ORDERED: ALUMINUM/MAGNESIUM/SIMETH (MAALOX MAX) 30 ML UDC PO PRN (21:15)
[2016-12-14] MEDS ORDERED: MAGNESIUM HYDROXIDE SUSP 30 ML UDC PO PRN (21:15)
[2016-12-14] MEDS ORDERED: HEPARIN 25000 UNIT/500 ML D5W ONE (21:25)
--- NOTE | 2016-12-14 21:34 | History and Physical ---
History & Physical Date & Time of Service: Dec 14, 2016 at 21:17 Chief Complaint: Blurred Vision,Some Afib Primary Care Physician: Dheeraj Cancino M.D. History of Present Illness Source: patient, spouse 76 y/o F Hx B/L carotid stenosis, breast CA, Hypothyroidism, HPL, chemo-related cardiomyopathy . Pt recently underwent a carotid US revealing 75% stenosis on R and 90% on L. She developed R sided numbness limited to her R arm, R tongue and R LE on 11/24 and was admitted with a diagnosis of a TIA. She had followed up with vascular surgery who had expressed that a CEA would be appropriate. She had initially decided not to go through with the surgery due to associated risks. The pt has developed intermittent blurred vision in her R eye over the past 2-3 days. She went to see her band manager and was told to attend the ER for fear she was evolving a CVA. Her symptoms have resolved at the time of evaluation for admission. She did also describe palpitation throughout the day. She does not have a history of AF and denied CP, SOB, N/V or MÁRQUEZ. Her symptoms have resolved at the time of admission. I had contacted vascular surgery at the time of admission to discuss her recurrent symptoms. The pt was informed that intervention is advised and that she is at risk of a CVA. She has agreed to stay for evaluation and intervention as recommended by the vascular surgeon in light of her recent symptoms. Past Medical/Surgical History Medical Problems: (1) Arthritis Status: Chronic (2) Carotid stenosis, bilateral Status: Chronic (3) Dyslipidemia Status: Chronic (4) HX: breast cancer Status: Chronic (5) Hypothyroidism Status: Chronic Surgical Problems: (1) History of modified radical mastectomy of left breast Permanent Comment: 07/11/1996 Status: Resolved (2) History of partial hysterectomy Permanent Comment: 07/11/1980 Status: Resolved Family History Cancer Heart disease Lung disease Social History Smoking Status: Former Smoker Drug Use: none Marital Status: Occupational Status: retired Immunizations History of Tetanus Vaccine?: Unknown History of Pneumococcal: No History of Hepatitis B Vaccine: No Multi-Drug Resistant Organisms History of MDRO: No Allergies Coded Allergies: IRVING Inhibitors (Unverified Allergy, Severe, ANGIO EDEMA, 12/14/16) Ciprofloxacin (Unverified Allergy, Severe, SISTER ALMOST . DOESN'T WANT THE RISK, 12/14/16) Propylthiouracil (Verified Allergy, Mild, 12/14/16) Doxycycline (Verified Allergy, Unknown, UNKNOWN, 12/14/16) Statins (Verified Allergy, Unknown, MUSCLE PAIN, 12/14/16) Sulfa Antibiotics (Verified Allergy, Unknown, RASH, 12/14/16) Home Medications Scheduled Aspirin (Aspirin Ec), 81 MG PO DAILY Atorvastatin (Atorvastatin Calcium), 0.5 TAB PO DAILY Carvedilol (Carvedilol), 6.25 MG PO BID Clopidogrel Bisulfate (Clopidogrel), 75 MG PO QAM Coenzyme Q10 (Ubidecarenone) (Co Q-10), 200 MG PO BID Ezetimibe (Zetia), 10 MG PO HS Flaxseed (Linseed) (Flax Seed Oil), 1,000 MG PO TID Levothyroxine Sodium (Synthroid), 1 TAB PO DAILY Review of Systems Constitutional: No fever, No chills, No sweats Eyes: + worsening of vision (resolved R eye bluriness), No eye pain ENT: No hearing loss, No unusual epistaxis, No nasal symptoms Respiratory: No cough, No sputum, No wheezing Cardiovascular: No chest pain, No orthopnea, No PND Abdomen: No pain, No nausea, No vomiting Musculoskeletal: No joint pain, No muscle pain Genitourinary - Female: No dysuria, No urinary frequency, No urinary urgency Neurologic: No memory loss, No paralysis, No weakness Psychiatric: No depression symptoms Endocrine: No fatigue Hematologic / Lymphatic: No abnormal bleeding/bruising Integumentary: No rash Allergic / Immunologic: No environmental allergies Physical Exam Vital Signs Date Time Temp Pulse Resp B/P (MAP) Pulse Ox O2 Delivery O2 Flow Rate FiO2 12/14/16 21:00 85 20 147/67 99 Room Air 12/14/16 18:39 85 18 136/80 97 Room Air 12/14/16 16:59 96 Room Air 12/14/16 16:33 36.7 90 18 131/75 96 Room Air General Appearance: WD/WN, no apparent distress Head: normocephalic, atraumatic Eyes: normal inspection, EOMI ENT: normal ENT inspection, pharynx normal Neck: supple, no JVD, + pertinent finding (B/L carotid bruits present) Respiratory/Chest: chest non-tender, lungs clear, normal breath sounds, no respiratory distress, no accessory muscle use Cardiovascular: regular rate, rhythm, no edema, no gallop, no JVD, no murmur, normal peripheral pulses Abdomen/GI: normal bowel sounds, non tender, soft Back: normal inspection, no CVA tenderness, no muscle spasm, normal range of motion Extremities/Musculoskelatal: normal inspection, no calf tenderness, normal capillary refill, no pedal edema, normal range of motion Neurologic/Psych: personal chef II-XII nml as tested, no motor/sensory deficits, alert, normal mood/affect, oriented x 3 Skin: normal color, warm/dry, no rash Diagnostics Laboratory Results Results Past 24 Hours Test 12/14/16 16:50 12/14/16 17:06 Range/Units White Blood Count 5.66 4.8-10.8 K/uL Red Blood Count 4.56 4.2-5.4 M/uL Hemoglobin 13.5 12.0-16.0 g/dL Hematocrit 41.5 37-47 % Mean Corpuscular Volume 91.0 80-100 fL Mean Corpuscular Hemoglobin 29.6 25-34 pg Mean Corpuscular Hemoglobin Concent 32.5 32-36 g/dl Platelet Count 256 130-400 K/uL Mean Platelet Volume 9.7 7.4-10.4 fL Neutrophils (%) (Auto) 69.8 % Lymphocytes (%) (Auto) 17.1 % Monocytes (%) (Auto) 10.6 % Eosinophils (%) (Auto) 1.8 % Basophils (%) (Auto) 0.5 % Neutrophils # (Auto) 3.95 1.4-6.5 K/uL Lymphocytes # (Auto) 0.97 1.2-3.4 K/uL Monocytes # (Auto) 0.60 0.11-0.59 K/uL Eosinophils # (Auto) 0.10 0-0.5 K/uL Basophils # (Auto) 0.03 0-0.2 K/uL RDW Standard Deviation 44.0 36.4-46.3 fL RDW Coefficient of Variation 13.4 11.5-14.5 % Immature Granulocyte % (Auto) 0.2 % Immature Granulocyte # (Auto) 0.01 0.00-0.02 K/uL Prothrombin Time 10.6 9.0-12.0 SECONDS Prothromb Time International Ratio 1.0 0.9-1.1 Activated Partial Thromboplast Time 27.6 21.0-31.0 SECONDS Partial Thromboplastin Ratio 1.1 Sodium Level 142 136-145 mmol/L Potassium Level 3.9 3.5-5.1 mmol/L Chloride Level 107 98-107 mmol/L Carbon Dioxide Level 30 21-32 mmol/L Anion Gap 5.0 3-11 mmol/L Blood Urea Nitrogen 19 7-18 mg/dl Creatinine 0.84 0.60-1.20 mg/dl Est Creatinine Clear Calc Drug Dose 47.6 ml/min Estimated GFR () 78.8 Estimated GFR (Non- 68.0 BUN/Creatinine Ratio 22.6 10-20 Random Glucose 91 70-99 mg/dl Calcium Level 9.1 8.5-10.1 mg/dl Total Creatine Kinase 180 26-192 U/L Creatine Kinase MB 1.3 0.5-3.6 ng/ml Creatine Kinase MB Ratio 0.7 0-3.0 Troponin I < 0.015 0-0.045 ng/ml Bedside Glucose 82 70-90 mg/dl Diagnostic Radiology CT head - no acute findings Impression Assessment and Plan 76 y/o F Hx B/L carotid stenosis, breast CA, Hypothyroidism, HPL, chemo-related cardiomyopathy . Pt recently underwent a carotid US revealing 75% stenosis on R and 90% on L. She developed R sided numbness limited to her R arm, R tongue and R LE on 11/24 and was admitted with a diagnosis of a TIA. She had followed up with vascular surgery who had expressed that a CEA would be appropriate. She had initially decided not to go through with the surgery due to associated risks. The pt has developed intermittent blurred vision in her R eye over the past 2-3 days. She went to see her band manager and was told to attend the ER for fear she was evolving a CVA. Her symptoms have resolved at the time of evaluation for admission. She did also describe palpitation throughout the day. 1) TIA - carotid stenosis - placed on Heparin per request of vascular pending evaluation for intervention. She complied with her daily ASA and Plavix and will bw evaluated by neurology for optimization in the deborah-op period. She will be monitored on telemetry with neurochecks and we will continue her daily statin dose although she cannot tolerate a high dose. 2) Hypothyroidism - cont Synthroid Full code - full dose Heparin Total time for this admit including review of labs, meds, imaging, records - discussion with vascular surgery, neurology, pt, ER attending - 38 min Level of Care Telemetry Resuscitation Status FULL RESUSCITATION VTE Prophylaxis VTE Risk Assessment Done? Y/N: Yes Risk Level: Moderate Given or contraindicated: Other Anticoagulation
[2016-12-14 22:10] VITALS: BP 140/100; PULSE 93; TEMP 36.7; O2SAT 95; Ht 162.6 cm; Wt 52.0 kg
[2016-12-14 22:15] VITALS: BP 130/74; PULSE 56; TEMP 36.6; O2SAT 92
[2016-12-14] MEDS ORDERED: D5NSS + 20MEQ KCL 1,000 ML IV SCH (22:30)
[2016-12-14 23:27] VITALS: BP 151/79; PULSE 79
[2016-12-14 23:44] VITALS: BP 152/80; PULSE 77; TEMP 36.4; O2SAT 100
[2016-12-15] VITALS (9 sets, daily range): BP systolic 103–134; BP diastolic 61–79; PULSE 64–84; TEMP 36.5–36.9; O2SAT 93–99
[2016-12-15 03:52] LABS: HEMATOCRIT 36.6 % (37-47); MEAN CELL VOLUME 89.3 fL (80-100); MEAN CORPUSCULAR HEMOGLOBIN 29.3 pg (25-34); MEAN CORPUSCULAR HGB CONC 32.8 g/dl (32-36); MEAN PLATELET VOLUME 9.4 fL (7.4-10.4); PLATELET COUNT 243 K/uL (130-400); WHITE BLOOD COUNT 5.96 K/uL (4.8-10.8)
[2016-12-15 04:08] LABS: PARTIAL THROMBOPLASTIN RATIO 2.3
[2016-12-15] MEDS: HEPARIN 25,000 UNIT/500ML D5W 500 ML IV PRN ×3 (05:11→20:41)
[2016-12-15] MEDS: LEVOTHYROXINE 75 MCG TAB PO SCH ×2 (06:02→09:21)
[2016-12-15] MEDS: ASPIRIN 81 MG ECTAB PO SCH (09:23)
[2016-12-15] MEDS: ATORVASTATIN 10 MG TAB PO SCH (09:23)
[2016-12-15] MEDS: CARVEDILOL 6.25 MG TAB PO SCH ×2 (09:23→20:43)
--- NOTE | 2016-12-15 10:15 | Neurology Consultation ---
Neurology Consultation Date of Consultation: Dec 15, 2016. Attending Physician: Jose Carlos Rousseau MD, PhD Primary Care Physician: Dheeraj Cancino M.D. Reason for Consultation: Consultation for TIA History of Present Illness Source: patient, hospital records This is a 76-year-old right-handed female who presents for the above evaluation. The patient presented because Tuesday through Tuesday she was having several episodes of right eye visual loss. She describes it as grade knee bends in her vision. She would close her left eye it would still be there, and would go away if she would close her right eye. There would last for about a minute. Multiple episodes. Patient went to see her photography teacher to was concern that the episodes were ischemic in nature and recommended to her primary care physician adding aspirin onto her Plavix and going to the emergency room for evaluation. Last month in November the patient was also admitted to the hospital for TIA like symptoms. She reports an episode that lasted a few hours of right hand numbness and right tongue numbness. She denies any facial symptoms. Denies any focal weakness. May have had some numbness in her lower extremity as well but she was not certain. She denied any visual symptoms at that time. Denied any speech or gait disturbance. Patient had ultrasound of her carotid and CTA of her head and neck at that time which noted a right ICA stenosis of 90% at the bifurcation and left common carotid stenosis is 75% on the left. Patient reportedly saw Dr. Sutton vascular surgeon approximately week after her November admission. Endarterectomy was recommended the patient declined at the time. She reports that she wanted to get a second opinion by vascular surgeon at [facility]. Previous workup was reviewed. Total cholesterol at last admission was 136, LDL 71, HDL 42, triglycerides 117, and hemoglobin A1c 5.9. The patient did NOT have MRI of her brain, echocardiogram, or a neurology consult. The patient was recommended at last admission in November to stop aspirin and start Plavix. She was taking Plavix monotherapy up until her recent event earlier this week and had only taken combination aspirin and Plavix for about a day. On review of systems the patient does note heart palpitations that have been increasing in frequency for the last 5 years. Patient reports that she's never had a heart monitor or Holter monitor as an outpatient for evaluation. 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 She is normally independent with her activities of daily living. Does yoga several times per week. Very brief and remote tobacco use when she was younger. No alcohol use. No illegal drug use. Drug Use: none Marital Status: Housing Status: lives with family Occupation Status: retired Allergies Coded Allergies: IRVING Inhibitors (Verified Allergy, Severe, ANGIO EDEMA, 12/14/16) Ciprofloxacin (Verified Allergy, Severe, SISTER ALMOST . DOESN'T WANT THE RISK, 12/14/16) Propylthiouracil (Verified Allergy, Mild, 12/14/16) Doxycycline (Verified Allergy, Unknown, UNKNOWN, 12/14/16) Statins (Verified Allergy, Unknown, MUSCLE PAIN, 12/14/16) Sulfa Antibiotics (Verified Allergy, Unknown, RASH, 12/14/16) Current Inpatient Medications Current Inpatient Medications Medications (Trade) Dose Ordered Sig/Calli Route Start Time Stop Time Status Last Admin Dose Admin Acetaminophen (Tylenol Tab) 650 mg Q4H PRN PO 12/14/16 21:15 01/13/17 21:14 Al Hydrox/Mg Hydrox/Simethicone (Maalox Max Susp) 15 ml Q4H PRN PO 12/14/16 21:15 01/13/17 21:14 Magnesium Hydroxide (Milk Of Magnesia Susp) 30 ml Q12H PRN PO 12/14/16 21:15 01/13/17 21:14 Ondansetron HCl (Zofran Inj) 4 mg Q6H PRN IV 12/14/16 21:15 01/13/17 21:14 Polyethylene (Miralax Powder Packet) 17 gm DAILY PRN PO 12/14/16 21:15 01/13/17 21:14 Potassium Chloride/Dextrose/ Sod Cl 1,000 ml @ 80 mls/hr [id number] IV 12/14/16 22:30 12/15/16 10:59 12/14/16 22:37 80 MLS/HR Aspirin (Ecotrin Tab) 81 mg DAILY PO 12/15/16 09:00 01/14/17 08:59 12/15/16 09:23 81 MG Carvedilol (Coreg Tab) 6.25 mg BID PO 12/15/16 09:00 01/14/17 08:59 12/15/16 09:23 6.25 MG Levothyroxine Sodium (Synthroid Tab) 75 mcg DAILYBB PO 12/15/16 06:30 01/14/17 06:29 12/15/16 09:21 75 MCG Atorvastatin Calcium (Lipitor Tab) 5 mg QAM PO 12/15/16 09:00 01/14/17 08:59 12/15/16 09:23 5 MG Heparin Sodium/ Dextrose 500 ml @ 19 mls/hr Q24H PRN IV 12/14/16 22:00 01/13/17 21:59 12/15/16 05:11 19 MLS/HR Review of Systems Complete review of systems otherwise negative except for the above noted in history of present illness. Physical Exam Vital Signs (Past 24 Hrs): Date Time Temp Pulse Resp B/P (MAP) Pulse Ox O2 Delivery O2 Flow Rate FiO2 12/15/16 08:00 Room Air 12/15/16 07:58 36.9 81 16 104/61 (75) 93 12/15/16 04:00 Room Air 12/15/16 04:00 36.7 73 18 134/70 (91) 97 Room Air 12/15/16 00:00 Room Air 12/14/16 23:44 36.4 77 16 152/80 (104) 100 Room Air 12/14/16 23:27 79 151/79 (103) 12/14/16 22:15 36.6 56 18 130/74 (92) 92 Room Air 12/14/16 22:10 36.7 93 20 140/100 95 Room Air 12/14/16 21:50 93 20 140/100 95 Room Air 12/14/16 21:00 85 20 147/67 99 Room Air 12/14/16 18:39 85 18 136/80 97 Room Air 12/14/16 16:59 96 Room Air 12/14/16 16:33 36.7 90 18 131/75 96 Room Air Gen.: Patient is alert and oriented in no acute distress lying in bed Heart: Regular rate and rhythm Extremities: No gross deformities or rashes noted Neurological examination: Mental status: Patient is alert and oriented to person place and time. Able to give his own history. Attention concentration normal for the situation. Speech is fluent without any dysarthria or aphasia noted Cranial nerves: Visual hardin intact to counting. Funduscopic examination was difficult to visualize. Pupils equally round and reactive to light. Extraocular muscles intact without nystagmus. No facial asymmetry noted. Facial sensation intact. Tongue midline. Good palatal elevation. Good shoulder shrug bilaterally. Hearing grossly intact voice. Strength: 5/5 both proximal and distal in all extremities .no arm drift. Tone is normal. Sensation: Grossly intact to light touch in all extremities Deep tendon reflexes: +2 in bilateral biceps (although right arm difficult to assess due to IVs) and patellar. Toes are equivocal to plantar stimulation bilaterally Coordination: Patient has good finger to nose without dysmetria Station within the bed is normal. Laboratory Results Past 24 Hours: 12/15/16 03:40 12/14/16 16:50 Test 12/14/16 16:50 12/14/16 17:06 12/15/16 03:40 Immature Granulocyte % (Auto) 0.2 % White Blood Count 5.66 K/uL (4.8-10.8) Red Blood Count 4.56 M/uL (4.2-5.4) 4.10 M/uL (4.2-5.4) Hemoglobin 13.5 g/dL (12.0-16.0) Hematocrit 41.5 % (37-47) Mean Corpuscular Volume 91.0 fL (80-100) 89.3 fL (80-100) Mean Corpuscular Hemoglobin 29.6 pg (25-34) 29.3 pg (25-34) Mean Corpuscular Hemoglobin Concent 32.5 g/dl (32-36) 32.8 g/dl (32-36) Platelet Count 256 K/uL (130-400) Mean Platelet Volume 9.7 fL (7.4-10.4) 9.4 fL (7.4-10.4) Neutrophils (%) (Auto) 69.8 % Lymphocytes (%) (Auto) 17.1 % Monocytes (%) (Auto) 10.6 % Eosinophils (%) (Auto) 1.8 % Basophils (%) (Auto) 0.5 % Neutrophils # (Auto) 3.95 K/uL (1.4-6.5) Lymphocytes # (Auto) 0.97 K/uL (1.2-3.4) Monocytes # (Auto) 0.60 K/uL (0.11-0.59) Eosinophils # (Auto) 0.10 K/uL (0-0.5) Basophils # (Auto) 0.03 K/uL (0-0.2) Immature Granulocyte # (Auto) 0.01 K/uL (0.00-0.02) Prothrombin Time 10.6 SECONDS (9.0-12.0) Prothromb Time International Ratio 1.0 (0.9-1.1) Anion Gap 5.0 mmol/L (3-11) Est Creatinine Clear Calc Drug Dose 47.6 ml/min Estimated GFR () 78.8 Estimated GFR (Non- 68.0 BUN/Creatinine Ratio 22.6 (10-20) Calcium Level 9.1 mg/dl (8.5-10.1) Total Creatine Kinase 180 U/L (26-192) Creatine Kinase MB 1.3 ng/ml (0.5-3.6) Creatine Kinase MB Ratio 0.7 (0-3.0) Troponin I < 0.015 ng/ml (0-0.045) Bedside Glucose 82 mg/dl (70-90) RDW Standard Deviation 42.2 fL (36.4-46.3) RDW Coefficient of Variation 13.0 % (11.5-14.5) Activated Partial Thromboplast Time 60.6 SECONDS (21.0-31.0) Partial Thromboplastin Ratio 2.3 Imaging As noted above in history of present illness Impression This is a 76-year-old female with 2 strokelike events in the last month and bilateral carotid stenosis. While episodes clinically appear to be TIAs cannot rule out ischemic strokes as MRIs were never obtained. Patient's event last month of right-hand numbness and right tongue numbness may be secondary to symptomatic carotid stenosis on the left of 75% but cannot rule out a cardioembolic source considering her history of frequent heart palpitations. Patient does not have known A. fib at this time. Patient's presenting symptom of brief visual loss in the right eye only, Tuesday through Tuesday, is concerning for ischemic events secondary to critical stenosis of the right ICA 90%. Other known stroke risk factors include dyslipidemia and mild hypertension. No residual neurological deficits on today's examination. Plan Patient needs a MRI of her brain and echocardiogram to complete TIA/stroke workup (this also was not done on last admission) Highly recommended endarterectomy of critical stenosis of 90% of the right ICA to the patient. Discussed that she will likely need endarterectomy of the left ICA stenosis of 75% in the near future. Went over risk and benefits. Discussed that even though there is a risk of ischemic event with procedure, that I felt that her risk for continued ischemic events was much higher if nothing is done. If patient is apprehensive about proceeding with the procedure this admission, I recommended to patient that she could seek a second evaluation and recommendation. Recommend maximal medical treatment of aspirin 81 mg + Plavix + statin for stroke prevention in the setting of critical carotid stenosis. From a neurology stroke prevention standpoint, heparin drip is not needed, and we'll leave this up to the discretion of vascular surgery. Avoid dehydration and hypotension as this could extend her stroke. Blood pressure recommendations while in hospital 175/95-150/80 For the first month after hospital discharge, blood pressure recommendations 150 /90-130/80. After the first month, blood pressure recommendations 130/80-110/70 Follow-up PT/OT and speech recommendations for discharge planning Neurological recommendations for stroke risk factor modifications: Total cholesterol goal 100-200, and LDL goal less than 100 (at goal) Hemoglobin A1c goal less than 7 (at goal) Encourage regular cardiovascular exercise at least 30 minutes 3 times per week ( at goal) TIA/Stroke Hospital Follow-up in neurology clinic in 1 month after discharge. Highly recommend Holter monitor or cardiac event monitor as an outpatient to rule out A. fib as this would change the patient's medical management if she had it. Thank you for allowing me to participate in this patient's care. If there is any questions or concerns, feel free to call/page me.
--- NOTE | 2016-12-15 10:24 | Medical Student: [facility] ---
Consultation Date of Consultation: Dec 15, 2016. Requesting Physician: Lance Willis MD Attending Physician: America Reynoso DO Reason for Consultation: possible TIA/stroke History of Present Illness Mrs. Scott is a 76-year-old female with a past medical history of breast cancer, bilateral carotid stenosis, and hypothyroidism who presented to the emergency room on 12/14/16 after a four day history of intermittent visual changes. Starting on 12/11/16, she reports seeing "schmidt amoebas" floating in her vision that went away if she covered only her right eye and reappeared when she covered only her left eye. These episodes of transient visual changes would last for approximately one minute and would occur 2-3 times a day. After consulting with her care associate and PCP, she arrived at the emergency department last night on 12/14/16. Mrs. Scott reported experiencing some palpitations on the way to the emergency room and recent episodes of hypotension at home (88/53 was one of the last readings she recalled recently performed at home). She denies having any weakness, pain, headache, numbness, tingling, dysarthria, expressive aphasia, or facial droop, nor were any of the latter observable symptoms seen by her . Since being admitted, she has not had any of these symptoms either. Recent Imagin) Results from 11/09/16 regarding her bilateral carotid stenosis is as follows: BILATERAL CAROTID DOPPLER STUDY HISTORY: CAROTID BILATERAL BRUIT COMPARISON: None. TECHNIQUE: Real-time, grayscale, and color Doppler sonography of the carotid arteries was performed. Imaging reviewed in the transverse and longitudinal planes. All measurements were calculated based on NASCET criteria. FINDINGS: Antegrade flow is seen in the bilateral vertebral arteries. The brachial pressures are hemodynamically similar. Considerable plaque formation bilaterally The peak systolic velocity within the right ICA is 241. The right systolic ratio is 4.5. The peak systolic velocity within the left ICA is 347. The left systolic ratio is 3.7. IMPRESSION: 1. Considerable plaque formation bilaterally. 2. 90% stenosis left internal carotid artery. 3. 80% stenosis right internal carotid artery. 4. significant stenotic change of the extracranial carotid arteries bilaterally Electronically signed by: Josiah Granados M.D. 11/09/2016 12:14 PM 2) Head CT performed on 12/14/16: CT SCAN OF THE BRAIN WITHOUT IV CONTRAST CLINICAL HISTORY: Blurry vision in the right eye. COMPARISON STUDY: CT of the brain dated 11/25/2016. TECHNIQUE: Unenhanced axial CT scan of the brain is performed from the vertex to the skull base. CT DOSE: 580.48 mGy.cm FINDINGS: Brain parenchyma: There are age-related involutional changes noting moderate patchy subcortical and periventricular microangiopathic change. 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 There is no hemorrhage, mass effect, or evidence of acute territorial ischemia by CT criteria. Schmidt-white matter is preserved. No extra-axial fluid collection is seen. Ventricles, sulci, cisterns: Prominent secondary to involutional change. Intracranial vasculature: There is atherosclerotic calcification of the cavernous carotid arteries. Calvarium: Unremarkable. Sinuses and mastoids: The visualized paranasal sinuses are clear. The mastoid air cells are well pneumatized. Orbits: The bony orbits are grossly intact. Findings suggest previous bilateral ocular lens surgery. Electronically signed by: Kash Yanez M.D. 12/14/2016 5:28 PM IMPRESSION: There is no hemorrhage, mass effect, or evidence of acute territorial ischemia by CT criteria. Past Medical/Surgical History Medical History: Mrs. Scott's medical history is significant for the followin) TIA - on 11/24/16, Mrs. Scott had an episode of right-sided hand and tongue numbness. She was seen in the emergency department but did not receive an echocardiogram or an MRI. She did not have any hemorrhage or mass effect on head CT. She was discharged on Plavix. 2) Bilateral carotid stenosis - characterized as a 90% occlusion of the right internal carotid artery and a 75% occlusion of the left internal carotid artery on ultrasound. 3) Breast cancer - invasive lobular carcinoma of the left breast diagnosed 20 years ago. She was treated with chemo and mastectomy (completed in 1996) and underwent lymphadectomy in the left arm. She has residual lymphedema in the left arm as well. 4) Hypothyroidism - controlled with Synthroid. 5) Arthritis - most prominent in the left knee, but also present in the right knee and hands as well. 6) Uterine fibroids 7) Cataracts Surgical History: She has had a number of operations, including 1) Left mastectomy in 1996 and lymphadectomy. 2) C-sections for the births of all three children (one was twins; she has three children total) 3) Hysterectomy 4) Cataract surgery, both eyes Family History History is significant on the maternal side for heart disease and on the paternal side for cancer. Her mother suddenly at 65 from a suspected NV. An uncle due to stroke in his 40s. 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) Review of Systems Constitutional: No problem reported Eyes: + see HPI ENT: No problem reported Respiratory: No problem reported Cardiac: + palpitations (reported upon arrival to hospital; EKG demonstrated sinus rhythm) Breast: No problem reported Abdomen: No problem reported Musculoskeletal: + joint pain (arthritis of the left knee) Female : No problem reported Neurologic: + see HPI, No memory loss, No paralysis, No weakness, No numbness/ tingling, No vertigo, No balance problems Psychiatric: No problem reported Heme: No problem reported Endo: No problem reported Skin: No problem reported Allergies Coded Allergies: IRVING Inhibitors (Verified Allergy, Severe, ANGIO EDEMA, 12/14/16) Ciprofloxacin (Verified Allergy, Severe, SISTER ALMOST . DOESN'T WANT THE RISK, 12/14/16) Propylthiouracil (Verified Allergy, Mild, 12/14/16) Doxycycline (Verified Allergy, Unknown, UNKNOWN, 12/14/16) Statins (Verified Allergy, Unknown, MUSCLE PAIN, 12/14/16) Sulfa Antibiotics (Verified Allergy, Unknown, RASH, 12/14/16) Medications Current Inpatient Medications Medications (Trade) Dose Ordered Sig/Calli Route Start Time Stop Time Status Last Admin Dose Admin Acetaminophen (Tylenol Tab) 650 mg Q4H PRN PO 12/14/16 21:15 01/13/17 21:14 Al Hydrox/Mg Hydrox/Simethicone (Maalox Max Susp) 15 ml Q4H PRN PO 12/14/16 21:15 01/13/17 21:14 Magnesium Hydroxide (Milk Of Magnesia Susp) 30 ml Q12H PRN PO 12/14/16 21:15 7/6/17 21:14 Ondansetron HCl (Zofran Inj) 4 mg Q6H PRN IV 12/14/16 21:15 01/13/17 21:14 Polyethylene (Miralax Powder Packet) 17 gm DAILY PRN PO 12/14/16 21:15 01/13/17 21:14 Potassium Chloride/Dextrose/ Sod Cl 1,000 ml @ 80 mls/hr [id number] IV 12/14/16 22:30 12/15/16 10:59 12/14/16 22:37 80 MLS/HR Aspirin (Ecotrin Tab) 81 mg DAILY PO 12/15/16 09:00 01/14/17 08:59 12/15/16 09:23 81 MG Carvedilol (Coreg Tab) 6.25 mg BID PO 12/15/16 09:00 01/14/17 08:59 12/15/16 09:23 6.25 MG Levothyroxine Sodium (Synthroid Tab) 75 mcg DAILYBB PO 12/15/16 06:30 01/14/17 06:29 12/15/16 09:21 75 MCG Atorvastatin Calcium (Lipitor Tab) 5 mg QAM PO 12/15/16 09:00 01/14/17 08:59 12/15/16 09:23 5 MG Heparin Sodium/ Dextrose 500 ml @ 19 mls/hr Q24H PRN IV 12/14/16 22:00 01/13/17 21:59 12/15/16 05:11 19 MLS/HR Physical Exam Date Time Temp Pulse Resp B/P (MAP) Pulse Ox O2 Delivery O2 Flow Rate FiO2 12/15/16 07:58 36.9 81 16 104/61 (75) 93 12/15/16 04:00 Room Air 12/15/16 04:00 36.7 73 18 134/70 (91) 97 Room Air 12/15/16 00:00 Room Air 12/14/16 23:44 36.4 77 16 152/80 (104) 100 Room Air 12/14/16 23:27 79 151/79 (103) 12/14/16 22:15 36.6 56 18 130/74 (92) 92 Room Air 12/14/16 22:10 36.7 93 20 140/100 95 Room Air 12/14/16 21:50 93 20 140/100 95 Room Air 12/14/16 21:00 85 20 147/67 99 Room Air 12/14/16 18:39 85 18 136/80 97 Room Air 12/14/16 16:59 96 Room Air 12/14/16 16:33 36.7 90 18 131/75 96 Room Air Eyes: bilateral eyes normal inspection, bilateral eyes PERRL, bilateral eyes EOMI Mrs. Scott was very pleasant to talk to. She was alert and oriented to person, place, and time. Mood and affect were appropriate. She demonstrated good insight into her health and condition. Speech was quiet but fluent with no dysarthria or aphasia. She followed all of my commands adequately. CN II - pupils were round and equally reactive to light. A direct and consensual response was elicited in both eyes symmetrically. Visual hardin were normal in both eyes. CN III, IV, - extraocular movements were full and intact. Eyes constricted during accommodation appropriately. CN V - normal sensation to face bilaterally in all three distributions. 5/5 masseter strength. CN VII - normal strength of muscles of facial expression, with no asymmetry. CN VIII - hearing was normal in the left ear, but she reported difficulty hearing my fingers rub together in her right ear. CN IX, X - palate elevated appropriately bilaterally. CN XI - 5/5 trapezius strength upon shoulder shrug against resistance CN XII - midline protruded tongue with good strength upon lateral movement against resistance. On motor exam, strength was 5/5 bilaterally in the biceps, triceps, brachioradialis, wrist extensors & flexors, and intrinsic hand muscles. Strength was 5/5 bilaterally in the quadriceps, hamstrings, calf muscles, and tibialis anterior. Bulk and tone were both normal bilaterally. She could adequately perform rapid tapping motions with both hands. On sensory exam, she was able to detect light touch bilaterally in both the upper and lower extremity equally. DTRs were 1/4 in the left biceps and brachioradialis but were not elicited in the right arm or either leg. On stimulation of the sole, a withdrawal response was observed, but no flexor or extensor response was elicited. Mrs. Scott performed [id number] testing successfully with both hands, with no action tremor or appendicular ataxia noted. Gait was slow and steady, but this may have been due to hesitancy to walk with her IV pole. She picked up her feet without any heel strike as she walked. Laboratory Results Last 24 Hours Test 12/14/16 16:50 12/14/16 17:06 12/15/16 03:40 White Blood Count 5.66 K/uL 5.96 K/uL Red Blood Count 4.56 M/uL 4.10 M/uL Hemoglobin 13.5 g/dL 12.0 g/dL Hematocrit 41.5 % 36.6 % Mean Corpuscular Volume 91.0 fL 89.3 fL Mean Corpuscular Hemoglobin 29.6 pg 29.3 pg Mean Corpuscular Hemoglobin Concent 32.5 g/dl 32.8 g/dl Platelet Count 256 K/uL 243 K/uL Mean Platelet Volume 9.7 fL 9.4 fL Neutrophils (%) (Auto) 69.8 % Lymphocytes (%) (Auto) 17.1 % Monocytes (%) (Auto) 10.6 % Eosinophils (%) (Auto) 1.8 % Basophils (%) (Auto) 0.5 % Neutrophils # (Auto) 3.95 K/uL Lymphocytes # (Auto) 0.97 K/uL Monocytes # (Auto) 0.60 K/uL Eosinophils # (Auto) 0.10 K/uL Basophils # (Auto) 0.03 K/uL RDW Standard Deviation 44.0 fL 42.2 fL RDW Coefficient of Variation 13.4 % 13.0 % Immature Granulocyte % (Auto) 0.2 % Immature Granulocyte # (Auto) 0.01 K/uL Prothrombin Time 10.6 SECONDS Prothromb Time International Ratio 1.0 Activated Partial Thromboplast Time 27.6 SECONDS 60.6 SECONDS Partial Thromboplastin Ratio 1.1 2.3 Sodium Level 142 mmol/L Potassium Level 3.9 mmol/L Chloride Level 107 mmol/L Carbon Dioxide Level 30 mmol/L Anion Gap 5.0 mmol/L Blood Urea Nitrogen 19 mg/dl Creatinine 0.84 mg/dl Est Creatinine Clear Calc Drug Dose 47.6 ml/min Estimated GFR () 78.8 Estimated GFR (Non- 68.0 BUN/Creatinine Ratio 22.6 Random Glucose 91 mg/dl Calcium Level 9.1 mg/dl Total Creatine Kinase 180 U/L Creatine Kinase MB 1.3 ng/ml Creatine Kinase MB Ratio 0.7 Troponin I < 0.015 ng/ml Bedside Glucose 82 mg/dl Assessment & Plan Problem List: Carotid stenosis Assessment: 1) Episode with visual changes possibly due to compromise of the right ophthalmic artery. Etiology may be from a lack of perfusion to the eye from the right ICA stenosis or possibly an embolus, given her history of palpitations and the lack of an echocardiogram performed to rule out the presence of emboli. Other options I considered were giant cell arteritis, which seemed less likely given the absence of headache or other symptoms related to it and her recent TIA last month, and migraine, which was less likely for the same reasons. Plan: 1) Obtain an MRI and echocardiogram. An MRI was not performed during her admission for her TIA. Therefore, it cannot be completely ruled out that Mrs. Scott did not have a stroke. Additionally , both head CTs performed on 11/24/16 and 12/14/16 revealed a chronic left frontal lobe infarct. Thus, it is important to further investigate the presence of other infarcts with MRI to better observe any soft tissue changes. Additionally , an echocardiogram should be performed to rule out the presence of any cardiac emboli or other pertinent problems. 2) Carotid endarterectomy Given that she has had two symptomatic episodes consistent with a TIA and stroke in the past 30 days affecting both the right eye and right hand/tongue ( indicating the severity of her bilateral carotid stenosis), it is important for her to undergo carotid endarterectomy for both internal carotid arteries. The risks of having another event appear to be greater than the risk of not undergoing any surgical procedure to address the potential underlying cause. 3) Add aspirin to her medication regimen with Plavix. To maximize the benefit of medical therapy, both should be taken. 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 In the event her palpitations are due to atrial fibrillation, it would be necessary to place Mrs. Scott on an anticoagulant. She should be followed for this in the outpatient setting. Neurology attending addendum: Patient was seen and evaluated with medical student. Please see my separate neurology consult note for full evaluation and recommendations. -America Reynoso DO
[2016-12-15 11:31] LABS: PARTIAL THROMBOPLASTIN RATIO 3.3
--- NOTE | 2016-12-15 13:33 | Surgery Consultation ---
Consultation Date of Service Dec 15, 2016. Chief Complaint amaurosis fugax R eye History of Present Illness The patient is a 76 year old female with hx of HTN, cardiomyopathy, breast ca, thyroid disease, admitted with R eye amaurosis which occurred multiple times over a 3 day period, seen in consultation today d/t severe R ICAS. Pt was initially seen a few weeks ago for L hemispheric TIA sx which consisted of R sided tongue and hand numbness and resolved. Pt imaging at that time demonstrated 80% stenosis of LICA, and 90% stenosis of LOWELL. D/T symptoms, she was seen in office and advised to undergo L CEA, however, declined to have CEA d /t risks involved. Pt states she had at least 9 episodes of grayish vision in R eye only and obstructed her vision while attempting to read on a computer screen. States it lasted only a few minutes each time, but saw her patient admitting clerk, who stated to pt that she saw lack of blood flow in pt's R eye and advised her to go to hospital. Pt states all sx are resolved at this time. Admits chronic R top of head MÁRQUEZ which has been present off and on for years. Denies fever, chills, chest pain, SOB, abd pain, N/V, rest pain, claudication, unilateral extremity weakness numbness or tingling, facial droop or asymmetry, difficulty speaking or swallowing, other complaints. Vitals Vital Signs Past 12 Hours Date Time Temp Pulse Resp B/P (MAP) Pulse Ox O2 Delivery O2 Flow Rate FiO2 12/15/16 11:41 36.7 64 16 107/65 (79) 98 12/15/16 08:00 Room Air 12/15/16 07:58 36.9 81 16 104/61 (75) 93 12/15/16 04:00 Room Air 12/15/16 04:00 36.7 73 18 134/70 (91) 97 Room Air Allergies Coded Allergies: IRVING Inhibitors (Verified Allergy, Severe, ANGIO EDEMA, 12/14/16) Ciprofloxacin (Verified Allergy, Severe, SISTER ALMOST . DOESN'T WANT THE RISK, 12/14/16) Propylthiouracil (Verified Allergy, Mild, 12/14/16) Doxycycline (Verified Allergy, Unknown, UNKNOWN, 12/14/16) Statins (Verified Allergy, Unknown, MUSCLE PAIN, 12/14/16) Sulfa Antibiotics (Verified Allergy, Unknown, RASH, 12/14/16) Home Medications Scheduled Aspirin (Aspirin Ec), 81 MG PO DAILY Atorvastatin (Atorvastatin Calcium), 0.5 TAB PO DAILY Carvedilol (Carvedilol), 6.25 MG PO BID Clopidogrel Bisulfate (Clopidogrel), 75 MG PO QAM Coenzyme Q10 (Ubidecarenone) (Co Q-10), 200 MG PO BID Ezetimibe (Zetia), 10 MG PO HS Flaxseed (Linseed) (Flax Seed Oil), 1,000 MG PO TID Levothyroxine Sodium (Synthroid), 1 TAB PO DAILY Problem List Medical Problems: (1) Arthritis (2) Carotid stenosis, bilateral (3) Dyslipidemia (4) HX: breast cancer (5) Hypothyroidism (6) TIA (transient ischemic attack) Surgical Problems: (1) History of modified radical mastectomy of left breast (2) History of partial hysterectomy Surgical / Medical History Hx Cardiac Surgery: No Hx Abdominal Surgery: Yes (C-SECTIONS, HYSTERECTOMY) Hx Cancer Surgery: Yes (LEFT MASTECTOMY AND LYMPHADECTOMY) Hx Thoracic Surgery: Yes (LEFT MASTECTOMY AND LYMPHADECTOMY) Hx Orthopedic: No Hx Urinary Tract Surgery: No Past Medical/Surgical History: Cancer, CVA/TIA, High Cholesterol, Hypertension , Thyroid Disease Family History Cancer Heart disease Lung disease Social History Smoking Status: Former Smoker (smoked for 6 months in her 20s) Hx Tobacco Use In Past Year?: No Hx Alcohol Use - Type & Amnt: Yes (one drink a day when she consumed alcohol; has not drank since her mastectomy) Hx Substance Use -Type & Amnt: No Review of Systems Constitutional: No chills, No fever, No malaise Skin: No change in color Eyes: + visual changes ENMT: No sore throat Respiratory: No cough, No MEYER, No hemoptysis, No short of breath Cardiovascular: No chest pain, No syncope, No edema, No intermittent claudication Gastrointestinal: No abdominal pain, No diarrhea, No nausea, No vomiting Genitourinary - Female: No dysuria, No hematuria Neurologic: + headache, No dizziness, No weakness, No lethargy, No numbness, No tingling Physical Exam Constitutional: General Apperance: well-nourished, well-developed Level of Distress: NAD Ambulation: ambulating normally Psychiatric: Mental Status: active & alert, normal mood, normal affect Orientation: oriented except where noted, to time, to place, to person Memory: recent memory normal, remote memory normal Head: normocephalic, atraumatic Eyes: EOM: EOMI ENMT: normal ENT inspection, hearing grossly normal Neck: supple, trachea midline Lungs: Respiratory effort: no dyspnea Auscultation: breath sounds normal, no wheezing, no rales/crackles, no rhonchi Cardiovascular: Apical Impulse: not displaced Heart Auscultation: RRR, no rubs, no gallops Peripheral Pulses: Pulses: full and equal, in all extremities except if noted Bruits: carotid bruit on the left, carotid bruit on the right Carotid Pulse: normal on the left, normal on the right Brachial Pulses: normal on the left, normal on the right Radial Pulse: normal on the left, normal on the right Femoral Pulse: normal on the left, normal on the right Posterior Tibialis Pulse: decreased on the left, decreased on the right Dorsalis Pedis Pulse: decreased on the left, decreased on the right Abdomen: Bowel Sounds: normal Inspection & Palpation: soft, non-distended, no tenderness, guarding & rebound Musculoskeletal: normal strength (5/5 throughout), normal tone Extremities: Upper Right: no cyanosis, no edema, no varicosities Upper Left: no cyanosis, no edema, no varicosities Lower Right: no cyanosis, no edema, no varicosities Lower Left: no cyanosis, no edema, no varicosities Neurologic: Cranial Nerves: grossly intact Sensation: grossly intact Assessment and Plan ASSESSMENT and PLAN: Severe Bilateral ICAS R eye amaurosis Pt also seen by Dr Sutton today, recommends pt to undergo R CEA tomorrow d/t stuttering sx of amaurosis over a 3 day period. Procedure, risks, benefits, and alteratives discussed with pt, she expresses understanding and agreement. All pt questions answered.
--- NOTE | 2016-12-15 13:33 | Anesthesiology Progress Note ---
Anesthesia Progress Note Date of Service Dec 15, 2016. Progress Notes Ms. Scott is a 76 year old female with allergies to ACEI, ciprofloxacin, doxycycline, PTU, statins and sulfa antibiotics who is slated for right CEA on with Dr. Sutton. PSH significant for L breast radial mastectomy in 1996 ( left arm restric), partial hysterectomy and C-sectino x3 with PONV common afterwards. PMH significant for COPD (seen on CXR), HTN, PVD, CHF (chemo related cardiomyopathy in 2004, now with preserved LV function), OA, hx/o breast cancer and recent TIA's. Patient found to have b/l carotid stenosis and recently has right sided symptoms (right eye blurry vision). EKG shows NSR with possible old septal infarct. Labs showed PTT of 84.9 2/2 heparin ggt. Airway exam notable for micrognathia with dizziness with neck extension. Echo and MRI of head are pending at this time (echo to be done PM of 12/15/16). Patient was extensively counseled for GETA with arterial line and all questions were answered. Consent was obtained.
--- NOTE | 2016-12-15 15:15 | Progress Note ---
Subjective Date of Service: Dec 15, 2016. Subjective Pt evaluation today including: conversation w/ patient, chart review, lab review, review of studies, conversation w/ customer service consultant, review of inpatient medication list Patient open to the restroom, no tongue, or arm weakness, no other complaint Problem List Medical Problems: (1) Carotid stenosis Status: Acute (2) Flank pain Status: Acute (3) Stroke-like symptoms Status: Acute (4) Vision loss Status: Acute Review of Systems Constitutional: + fatigue, No fever, No chills, No sweats, No weight loss, No weakness, No problem reported Eyes: No worsening of vision, No eye pain, No redness, No discharge, No diplopia ENT: No hearing loss, No unusual epistaxis, No nasal symptoms, No sore throat, No tinnitus, No dental problems, No trouble swallowing Respiratory: No cough, No sputum, No wheezing, No shortness of breath, No dyspnea on exertion, No dyspnea at rest, No hemoptysis Cardiac: No chest pain, No orthopnea, No PND, No edema, No claudication, No palpitations Abdomen: No pain, No nausea, No vomiting, No diarrhea, No constipation Musculoskeletal: No joint pain, No muscle pain, No swelling, No calf pain Female : No dysuria, No urinary frequency, No hematuria, No incontinence, No abnormal vaginal bleeding, No vaginal discharge Neurologic: No memory loss, No paralysis, No weakness, No numbness/tingling, No vertigo, No balance problems Psychiatric: No depression symptoms, No anhedonism, No anxiety, No insomnia, No substance abuse Heme: No abnormal bleeding/bruising, No clotting problems, No swollen lymph nodes, No night sweats Endo: No fatigue, No excessive thirst, No excessive urination Skin: No rash, No itch, No new/changing skin lesions, No color change, No bleeding Objective Vital Signs Date Time Temp Pulse Resp B/P (MAP) Pulse Ox O2 Delivery O2 Flow Rate FiO2 12/15/16 12:00 Room Air 12/15/16 11:41 36.7 64 16 107/65 (79) 98 12/15/16 08:00 Room Air 12/15/16 07:58 36.9 81 16 104/61 (75) 93 12/15/16 04:00 Room Air 12/15/16 04:00 36.7 73 18 134/70 (91) 97 Room Air 12/15/16 00:00 Room Air 12/14/16 23:44 36.4 77 16 152/80 (104) 100 Room Air 12/14/16 23:27 79 151/79 (103) 12/14/16 22:15 36.6 56 18 130/74 (92) 92 Room Air 12/14/16 22:10 36.7 93 20 140/100 95 Room Air 12/14/16 21:50 93 20 140/100 95 Room Air 12/14/16 21:00 85 20 147/67 99 Room Air 12/14/16 18:39 85 18 136/80 97 Room Air 12/14/16 16:59 96 Room Air 12/14/16 16:33 36.7 90 18 131/75 96 Room Air Physical Exam General Appearance: WD/WN, no apparent distress, + thin, + pertinent finding ( looks tired) Eyes: normal inspection, PERRL, EOMI, sclerae normal ENT: normal ENT inspection, hearing grossly normal, pharynx normal Neck: supple, no adenopathy, thyroid normal, no JVD, no carotid bruits, trachea midline Respiratory/Chest: chest non-tender, normal breath sounds, no respiratory distress, no accessory muscle use, + decreased breath sounds Cardiovascular: regular rate, rhythm, no edema, no gallop, no JVD, no murmur Abdomen: normal bowel sounds, non tender, soft, no organomegaly, no pulsatile mass Extremities: normal range of motion, non-tender, normal inspection, no pedal edema, no calf tenderness, normal capillary refill, pelvis stable Neurologic/Psychiatric: customer agent II-XII nml as tested, no motor/sensory deficits, alert, normal mood/affect, oriented x 3 Skin: normal color, warm/dry, no rash Lymphatic: no adenopathy Laboratory Results Last 24 Hours Test 12/14/16 16:50 12/14/16 17:06 12/15/16 03:40 12/15/16 11:03 White Blood Count 5.66 K/uL 5.96 K/uL Red Blood Count 4.56 M/uL 4.10 M/uL Hemoglobin 13.5 g/dL 12.0 g/dL Hematocrit 41.5 % 36.6 % Mean Corpuscular Volume 91.0 fL 89.3 fL Mean Corpuscular Hemoglobin 29.6 pg 29.3 pg Mean Corpuscular Hemoglobin Concent 32.5 g/dl 32.8 g/dl Platelet Count 256 K/uL 243 K/uL Mean Platelet Volume 9.7 fL 9.4 fL Neutrophils (%) (Auto) 69.8 % Lymphocytes (%) (Auto) 17.1 % Monocytes (%) (Auto) 10.6 % Eosinophils (%) (Auto) 1.8 % Basophils (%) (Auto) 0.5 % Neutrophils # (Auto) 3.95 K/uL Lymphocytes # (Auto) 0.97 K/uL Monocytes # (Auto) 0.60 K/uL Eosinophils # (Auto) 0.10 K/uL Basophils # (Auto) 0.03 K/uL RDW Standard Deviation 44.0 fL 42.2 fL RDW Coefficient of Variation 13.4 % 13.0 % Immature Granulocyte % (Auto) 0.2 % Immature Granulocyte # (Auto) 0.01 K/uL Prothrombin Time 10.6 SECONDS Prothromb Time International Ratio 1.0 Activated Partial Thromboplast Time 27.6 SECONDS 60.6 SECONDS 84.9 SECONDS Partial Thromboplastin Ratio 1.1 2.3 3.3 Sodium Level 142 mmol/L Potassium Level 3.9 mmol/L Chloride Level 107 mmol/L Carbon Dioxide Level 30 mmol/L Anion Gap 5.0 mmol/L Blood Urea Nitrogen 19 mg/dl Creatinine 0.84 mg/dl Est Creatinine Clear Calc Drug Dose 47.6 ml/min Estimated GFR () 78.8 Estimated GFR (Non- 68.0 BUN/Creatinine Ratio 22.6 Random Glucose 91 mg/dl Calcium Level 9.1 mg/dl Total Creatine Kinase 180 U/L Creatine Kinase MB 1.3 ng/ml Creatine Kinase MB Ratio 0.7 Troponin I < 0.015 ng/ml Bedside Glucose 82 mg/dl Assessment and Plan 76 y/o F with possible TIA with developed R sided numbness limited to her R arm , R tongue and R LE on 11/24 and was admitted with a diagnosis of a TIA. Possible TIA with developed intermittent blurred vision in her R eye over the past 2-3 days. R arm, R tongue and R LE in 11/2016 B/L carotid stenosis Pt recently underwent a carotid US revealing 75% stenosis on R and 90% on L hx of , breast CA, Hypothyroidism, HPL, chemo-related cardiomyopathy . B/L carotid stenosis Vascular surgeon input appreciated, Continue heparin drip Planning to have CEA tomorrow Continue on Heparin per request of vascular pending evaluation for intervention. Continue daily ASA and Plavix and will bw evaluated by neurology for optimization in the deborah-op period. Continue telemetry with neurochecks and we will continue her daily statin dose although she cannot tolerate a high dose. Vascular surgeon and neurology input appreciated Check fasting lipid panel Hypothyroidism - cont Synthroid Full code - full dose Heparin Discussed with patient about a care plan /answer all questions Continued [facility] stay due to: multiple IV medications needed Discharge planning: home
--- NOTE | 2016-12-15 17:33 | DIAGNOSTIC IMAGING REPORT ---
MRI OF THE BRAIN WITHOUT IV CONTRAST CLINICAL HISTORY: Transient ischemic attack. COMPARISON STUDY: CT of the brain dated 12/14/2016. TECHNIQUE: MRI of the brain was performed utilizing various T1 and T2-weighted sequences in the axial, sagittal, and coronal planes. IV contrast was not administered for this examination. FINDINGS: Brain parenchyma: There are age-related involutional changes noting moderate patchy subcortical and periventricular microangiopathic disease. There is no hemorrhage or mass effect. There is no restricted diffusion to suggest acute ischemia. Schmidt-white matter differentiation is preserved. No extra-axial fluid collection is seen. The cerebellar tonsils are normal in configuration. Ventricles, sulci, and cisterns: Prominent secondary to involutional change. Pituitary and sella: Unremarkable. Intracranial vasculature: Normal flow voids are maintained at the skull base. Orbits: The bony orbits are grossly intact. Orbital contents are normal in appearance noting bilateral ocular lens implants. Sinuses and mastoids: There is a small right mastoid effusion. The left mastoid air cells and the paranasal sinuses are clear. Calvarium: Unremarkable. Cervical cord: Partially visualized cervical spinal cord is normal in morphology and signal intensity. IMPRESSION: Senescent changes as above with no hemorrhage, mass effect, or evidence of acute ischemia. Electronically signed by: Kash Yanez M.D. 12/15/2016 5:31 PM Dictated Date/Time: 12/15/2016 5:28 PM
[2016-12-15 19:01] LABS: PARTIAL THROMBOPLASTIN RATIO 2.5
--- NOTE | 2016-12-15 19:01 | ECHOCARDIOGRAM REPORT ---
*NOTICE TO RECEIVING [employer] This information is strictly Confidential and protected under [place] law. [place] law prohibits you from making any further disclosure of this information unless further disclosure is expressly permitted by the written consent of the person to whom it pertains or is authorized by law. A general authorization for the release of medical or other information is not sufficient for this purpose. Hospital accepts no responsibility if the information is made available to any other person, INCLUDING THE PATIENT. Interpretation Summary * Name: ALLISON EMERSON Study Date: 12/15/2016 01:09 PM BP: 107/65 mmHg * Patient Location: [facility]\S\N284\S\1 HR: 64 * : 1940 (M/d/yyyy) Gender: Female Height: 64 in * Age: 76 yrs Ethnicity: CA Weight: 114 lb * Ordering Physician: America Reynoso * Performed By: Radha Yanez * * Reason For Study: TIA * BSA: 1.5 m2 * -- Conclusions -- * 1. Normal LV size. Borderline concentric LVH. * 2. Normal LV systolic function. LVEF 60-65%. No regioanl wall motion abnormalities. * 3. Normal RV size and function. * 4. Mild to moderate tricuspid regurgitation. * 5. Normal estimated RA and PA pressures. * 6. Negative bubble study for interatrial shunt. No other clear cardioembolic sources. * 7. No prior studies for comparison. Procedure Details * A complete two-dimensional transthoracic echocardiogram was performed (2D, M-mode, Doppler and color flow Doppler). * A saline contrast injection was performed to assess for cardiac shunting. * The injection was performed through an intravenous line in the right arm. * The attending nurse who injected the saline contrast was LYNDON PEDERSON RN. * A total of 20 cc of agitated saline was given. Left Ventricle * The left ventricle is grossly normal size. * There is borderline concentric left ventricular hypertrophy. * Ejection Fraction = 60-65%. Right Ventricle * The right ventricle is grossly normal size. * The right ventricular systolic function is normal as assessed by tricuspid annular plane systolic excursion (TAPSE) (normal >1.5 cm). Atria * The left atrial size is normal. * Right atrial size is normal. * Injection of contrast documented no interatrial shunt. Mitral Valve * The mitral valve leaflets appear thickened, but open well. * There is no mitral valve stenosis. * There is trace mitral regurgitation. Tricuspid Valve * The tricuspid valve is not well visualized, but is grossly normal. * There is no tricuspid stenosis. * There is mild to moderate tricuspid regurgitation. Aortic Valve * The aortic valve opens well. * The aortic valve is trileaflet. * No hemodynamically significant valvular aortic stenosis. * There is no significant aortic regurgitation. Pulmonic Valve * The pulmonary valve is inadequately visualized, but the Doppler data is adequate for interpretation. * Pulmonic stenosis is absent. * Trace pulmonic valvular regurgitation. Great Vessels * The aortic root and proximal ascending aorta are normal sized. Pericardium/Pleural * There is no pericardial effusion. Great Vessels * There is no evidence of pulmonary hypertension. The PA systolic pressure is less than 36 mmHg. * Normal inferior vena cava size and collapsability with sniff indicates a normal right atrial pressure of 3 mmHg MMode 2D Measurements and Calculations IVSd 1.1 cm IVSs 1.5 cm LVIDd 3.6 cm LVIDs 2.3 cm LVPWd 0.98 cm LVPWs 1.8 cm IVS/LVPW 1.1 FS 36.6 % EDV(Teich) 54.3 ml ESV(Teich) 17.7 ml EF(Teich) 67.4 % EDV(cubed) 46.5 ml ESV(cubed) 11.8 ml EF(cubed) 74.6 % % IVS thick 40.1 % % LVPW thick 78.1 % LV mass(C)d 112.9 grams LV mass(C)dI 73.3 grams/m\S\2 LV mass(C)s 132.8 grams LV mass(C)sI 86.2 grams/m\S\2 SV(Teich) 36.6 ml SI(Teich) 23.7 ml/m\S\2 SV(cubed) 34.7 ml SI(cubed) 22.5 ml/m\S\2 ACS 1.4 cm LA dimension 2.9 cm asc Aorta Diam 3.2 cm LVOT diam 1.9 cm LVOT area 2.9 cm\S\2 LVAd ap4 23.8 cm\S\2 LVLd ap4 7.2 cm EDV(MOD-sp4) 64.8 ml EDV(sp4-el) 66.8 ml LVAs ap4 11.7 cm\S\2 LVLs ap4 5.5 cm ESV(MOD-sp4) 22.0 ml ESV(sp4-el) 21.1 ml EF(MOD-sp4) 66.1 % EF(sp4-el) 68.5 % LVAd ap2 22.0 cm\S\2 LVLd ap2 7.3 cm EDV(MOD-sp2) 53.9 ml EDV(sp2-el) 55.8 ml LVAs ap2 10.8 cm\S\2 LVLs ap2 5.5 cm ESV(MOD-sp2) 18.8 ml ESV(sp2-el) 18.0 ml EF(MOD-sp2) 65.2 % EF(sp2-el) 67.8 % LVLd %diff 2.2 % EDV(MOD-bp) 60.5 ml LVLs %diff -0.79 % ESV(MOD-bp) 20.3 ml EF(MOD-bp) 66.4 % SV(MOD-sp4) 42.9 ml SI(MOD-sp4) 27.8 ml/m\S\2 SV(MOD-sp2) 35.1 ml SI(MOD-sp2) 22.8 ml/m\S\2 SV(MOD-bp) 40.2 ml SI(MOD-bp) 26.1 ml/m\S\2 SV(sp4-el) 45.8 ml SI(sp4-el) 29.7 ml/m\S\2 SV(sp2-el) 37.8 ml SI(sp2-el) 24.5 ml/m\S\2 Doppler Measurements and Calculations MV E max jennifer 58.9 cm/sec MV A max jennifer 72.9 cm/sec MV E/A 0.81 MV dec time 0.34 sec Ao V2 max 125.1 cm/sec Ao max PG 6.3 mmHg Ao max PG (full) 3.8 mmHg NATA(V,A) 1.8 cm\S\2 NATA(V,D) 1.8 cm\S\2 LV V1 max PG 2.5 mmHg LV V1 max 78.9 cm/sec PA V2 max 60.4 cm/sec PA max PG 1.5 mmHg TR max jennifer 220.4 cm/sec
[2016-12-16] VITALS (52 sets, daily range): BP systolic 71–181; BP diastolic 30–91; PULSE 48–97; TEMP 36.5–36.9; O2SAT 91–100
[2016-12-16] MEDS: HEPARIN 25,000 UNIT/500ML D5W 500 ML IV PRN ×2 (01:38→07:42)
[2016-12-16] MEDS: LEVOTHYROXINE 75 MCG TAB PO SCH (05:58)
[2016-12-16] MEDS ORDERED: CEFAZOLIN 1000MG/55 ML D5W 55 ML IV SCH (06:00)
[2016-12-16 06:59] LABS: PARTIAL THROMBOPLASTIN RATIO 2.9
[2016-12-16 07:27] LABS: BUN/CREATININE RATIO 17.9 (10-20); CALCIUM 9.1 mg/dl (8.5-10.1); CREATININE 0.7 mg/dl (0.60-1.20); MAGNESIUM 2.4 mg/dl (1.8-2.4); POTASSIUM 3.7 mmol/L (3.5-5.1)
[2016-12-16] MEDS: CARVEDILOL 6.25 MG TAB PO SCH ×2 (08:12→21:00)
[2016-12-16] MEDS: ASPIRIN 81 MG ECTAB PO SCH (08:12)
[2016-12-16] MEDS: ATORVASTATIN 10 MG TAB PO SCH (08:12)
[2016-12-16] MEDS ORDERED: LIDOCAINE HCL 1% 20 ML VIAL ONE (11:49)
[2016-12-16] MEDS ORDERED: BUPIVACAINE/EPINEPHRINE 0.5% MPF 1:200,000 30 ML VIAL ONE (11:49)
[2016-12-16] MEDS ORDERED: GELATIN SPONGE 12-7MM ONE (11:49)
[2016-12-16] MEDS ORDERED: THROMBIN FOR SOLN 20000 UNIT KIT ONE (11:49)
[2016-12-16] MEDS ORDERED: HEPARIN SOD (PORCINE) 1000 UNIT/ML 10 ML VIAL ONE ×3 (11:49→15:15)
[2016-12-16] MEDS ORDERED: CEFAZOLIN SOD 1 GM VIAL ONE (11:49)
[2016-12-16] MEDS ORDERED: DEXAMETHASONE SOD INJ 4 MG/ML VIAL ONE (12:35)
[2016-12-16] MEDS ORDERED: MIDAZOLAM HCL 1 MG/ML 2ML VIAL ONE (12:35)
[2016-12-16] MEDS ORDERED: GLYCOPYRROLATE INJ 0.2 MG/ML VIAL ONE (12:35)
[2016-12-16] MEDS ORDERED: NEOSTIGMINE METHYLSULFATE 5 MG/5 ML SYR ONE (12:35)
[2016-12-16] MEDS ORDERED: LIDOCAINE HCL 2% 2 ML VIAL (20MG/ML) ONE (12:35)
[2016-12-16] MEDS ORDERED: ONDANSETRON INJ 2 MG/ML 2 ML VIAL ONE (12:35)
[2016-12-16] MEDS ORDERED: FENTANYL CITRATE INJ 50 MCG/1 ML 2 ML VIAL ONE (12:35)
[2016-12-16] MEDS ORDERED: PROPOFOL IV EMULSION 10 MG/ML 20 ML VIAL IV ONE (12:35)
[2016-12-16] MEDS ORDERED: ROCURONIUM BROMIDE 10 MG/ML 5 ML VIAL ONE (12:35)
--- NOTE | 2016-12-16 13:19 | Progress Note ---
Progress Note Date of Service Dec 16, 2016. Progress Note Patient for right CEA today. I have discussed the risks options and benefits of the procedure with the patient. The patient understands the risks options and benefits and agrees to the procedure. I have examined the patient, reviewed the History & Physical and in the interval since the performance of the History & Physical I have noted the following changes of clinical significance: No changes noted
[2016-12-16] MEDS ORDERED: EpHEDrine SULFATE INJ 50 MG/ML AMP ONE (14:44)
[2016-12-16] MEDS ORDERED: PHENYLEPHRINE HCL INJ 10 MG/ML VIAL ONE (14:44)
[2016-12-16] MEDS ORDERED: EpHEDrine SULFATE INJ 50 MG/ML AMP IV PRN (16:15)
[2016-12-16] MEDS ORDERED: HYDROmorphone INJ 1 MG/ML SYR IV PRN (16:15)
[2016-12-16] MEDS ORDERED: ATROPINE SULFATE 0.1 MG/ML 5ML SYR IV PRN (16:15)
[2016-12-16] MEDS ORDERED: ONDANSETRON INJ 2 MG/ML 2 ML VIAL IV PRN ×2 (16:15→16:45)
[2016-12-16] MEDS ORDERED: FENTANYL CITRATE INJ 50 MCG/1 ML 2 ML VIAL IV PRN (16:15)
[2016-12-16] MEDS ORDERED: LABETALOL HCL IV 5 MG/ML 20ML IV PRN (16:15)
[2016-12-16] MEDS ORDERED: MEPERIDINE HCL 25 MG/ML CARP IV PRN (16:15)
[2016-12-16] MEDS ORDERED: GELATIN SPONGE SZ 100 ONE (16:16)
[2016-12-16] MEDS ORDERED: PROTAMINE SULFATE 10 MG/ML 5 ML VIAL IV ONE (16:33)
--- NOTE | 2016-12-16 16:38 | [facility] Post Operative Brief Note ---
Immediate Operative Summary Operative Date Dec 16, 2016. Pre-Operative Diagnosis Severe right internal carotid artery stenosis. Post-Operative Diagnosis Same as preop. Procedure(s) Performed Right Carotid Endarterectomy with patch angioplasty Surgeon Dr. Sutton Rand Maker Surgeon(s) Dr. Heaven Read, fellow. Estimated Blood Loss 200ML Findings symptomatic severe stenosis of right internal carotid artery Specimens A. Right Carotid Plaque Anesthesia Gen Complication(s) None Disposition Recovery Room / PACU
[2016-12-16] MEDS ORDERED: NITROGLYCERIN/D5W 100 MCG/ML 250 ML IV PRN (16:39)
[2016-12-16] MEDS ORDERED: SODIUM NITROPRUSSIDE SOLN INJ 50 MG in DEXTROSE 5% 500ML 500 ML IV PRN (16:39)
[2016-12-16] MEDS ORDERED: PHENYLEPHRINE HCL INJ 20 MG in DEXTROSE 5% 500ML 500 ML IV PRN (16:39)
[2016-12-16] MEDS ORDERED: METOPROLOL TARTRATE 1 MG/ML VIAL IV PRN (16:45)
[2016-12-16] MEDS ORDERED: MoRPHine SULFATE 4 MG/ML 1 ML CARP\\VIAL IV PRN (16:45)
[2016-12-16 17:57] LABS: HEMATOCRIT 21.7 % (37-47)
--- NOTE | 2016-12-16 17:59 | Anesthesiology Progress Note ---
Anesthesia Post Op Note Date & Time Dec 16, 2016 at 17:59 Vital Signs Pain Intensity: 0 Vital Signs Past 12 Hours Date Time Temp Pulse Resp B/P (MAP) Pulse Ox O2 Delivery O2 Flow Rate FiO2 12/16/16 17:44 56 10 99 12/16/16 17:44 56 10 12/16/16 17:42 102/48 12/16/16 17:39 59 20 99 12/16/16 17:39 36.3 61 16 102/48 99 Mask 2 108/40 12/16/16 17:39 59 20 12/16/16 17:38 61 15 12/16/16 17:38 61 15 99 12/16/16 17:37 102/52 12/16/16 17:33 61 18 100 12/16/16 17:33 61 18 12/16/16 17:32 115/56 12/16/16 17:32 115/56 12/16/16 17:31 63 16 12/16/16 17:31 63 16 100 12/16/16 17:31 63 16 100 12/16/16 17:31 63 16 12/16/16 17:27 115/56 12/16/16 17:27 115/56 12/16/16 17:26 61 16 100 12/16/16 17:26 61 16 12/16/16 17:26 61 16 100 12/16/16 17:26 61 16 12/16/16 17:23 66 19 112/57 100 Mask 10 12/16/16 17:22 117/59 12/16/16 17:22 117/59 12/16/16 17:21 63 18 12/16/16 17:21 63 18 100 12/16/16 17:21 63 18 100 12/16/16 17:21 63 18 12/16/16 17:17 113/56 12/16/16 17:17 113/56 12/16/16 17:16 62 14 12/16/16 17:16 62 14 100 12/16/16 17:16 62 14 100 12/16/16 17:16 62 14 12/16/16 17:13 112/57 12/16/16 17:13 112/57 12/16/16 12:15 Room Air 12/16/16 11:20 36.9 64 16 123/69 (87) 99 12/16/16 08:15 Room Air 12/16/16 07:25 36.5 66 16 124/71 (60) 97 Notes Mental Status: alert / awake / arousable, participated in evaluation Pt Amnestic to Procedure: Yes Nausea / Vomiting: adequately controlled Pain: adequately controlled Airway Patency, RR, SpO2: stable & adequate BP & HR: stable & adequate Hydration State: stable & adequate Anesthetic Complications: no major complications apparent
--- NOTE | 2016-12-16 18:49 | Progress Note ---
Subjective Date of Service: Dec 16, 2016. Subjective Pt evaluation today including: conversation w/ patient, conversation w/ family , physical exam, chart review, lab review, review of studies, conversation w/ websphere consultant, review of inpatient medication list Patient seen postop, tired nausea, and throat pain, Problem List Medical Problems: (1) Carotid stenosis Status: Acute (2) Flank pain Status: Acute (3) Stroke-like symptoms Status: Acute (4) Vision loss Status: Acute Review of Systems Constitutional: + problem reported (able to obtain more detail of review of system because of post op ) Objective Vital Signs Date Time Temp Pulse Resp B/P (MAP) Pulse Ox O2 Delivery O2 Flow Rate FiO2 12/16/16 17:44 56 10 99 12/16/16 17:44 56 10 12/16/16 17:42 102/48 12/16/16 17:39 59 20 99 12/16/16 17:39 36.3 61 16 102/48 99 Mask 2 108/40 12/16/16 17:39 59 20 12/16/16 17:38 61 15 12/16/16 17:38 61 15 99 12/16/16 17:37 102/52 12/16/16 17:33 61 18 100 12/16/16 17:33 61 18 12/16/16 17:32 115/56 12/16/16 17:32 115/56 12/16/16 17:31 63 16 12/16/16 17:31 63 16 100 12/16/16 17:31 63 16 100 12/16/16 17:31 63 16 12/16/16 17:27 115/56 12/16/16 17:27 115/56 12/16/16 17:26 61 16 100 12/16/16 17:26 61 16 12/16/16 17:26 61 16 100 12/16/16 17:26 61 16 12/16/16 17:23 66 19 112/57 100 Mask 10 12/16/16 17:22 117/59 12/16/16 17:22 117/59 12/16/16 17:21 63 18 12/16/16 17:21 63 18 100 12/16/16 17:21 63 18 100 12/16/16 17:21 63 18 12/16/16 17:17 113/56 12/16/16 17:17 113/56 12/16/16 17:16 62 14 12/16/16 17:16 62 14 100 12/16/16 17:16 62 14 100 12/16/16 17:16 62 14 12/16/16 17:13 112/57 12/16/16 17:13 112/57 12/16/16 12:15 Room Air 12/16/16 11:20 36.9 64 16 123/69 (87) 99 12/16/16 08:15 Room Air 12/16/16 07:25 36.5 66 16 124/71 (88) 97 12/16/16 04:19 36.7 69 16 125/72 (89) 97 Room Air 12/16/16 04:00 Room Air 12/16/16 00:00 Room Air 12/15/16 23:06 36.8 72 18 103/65 (78) 96 Room Air 12/15/16 20:45 84 12/15/16 20:30 98 Room Air 12/15/16 19:18 36.6 74 18 134/79 (97) 99 Room Air Physical Exam General Appearance: WD/WN, no apparent distress, + thin, + pertinent finding ( mild uncomfortable) Eyes: normal inspection, PERRL, EOMI, sclerae normal ENT: normal ENT inspection, hearing grossly normal, pharynx normal Neck: supple, no adenopathy, thyroid normal, no JVD, no carotid bruits, trachea midline, + pertinent finding (neck incision looks good) Respiratory/Chest: chest non-tender, lungs clear, normal breath sounds, no respiratory distress, no accessory muscle use Cardiovascular: regular rate, rhythm, no edema, no gallop, no JVD, no murmur Abdomen: normal bowel sounds, non tender, soft, no organomegaly, no pulsatile mass Extremities: normal range of motion, non-tender, normal inspection, no pedal edema, no calf tenderness, normal capillary refill, pelvis stable Neurologic/Psychiatric: qa intern II-XII nml as tested, no motor/sensory deficits, alert, normal mood/affect, oriented x 3 Skin: normal color, warm/dry, no rash Lymphatic: no adenopathy Laboratory Results Last 24 Hours Test 12/16/16 06:17 12/16/16 15:55 12/16/16 17:20 Activated Partial Thromboplast Time 76.6 SECONDS Partial Thromboplastin Ratio 2.9 Sodium Level 144 mmol/L Potassium Level 3.7 mmol/L Chloride Level 110 mmol/L Carbon Dioxide Level 26 mmol/L Anion Gap 8.0 mmol/L Blood Urea Nitrogen 13 mg/dl Creatinine 0.70 mg/dl Est Creatinine Clear Calc Drug Dose 56.3 ml/min Estimated GFR () 98.2 Estimated GFR (Non- 84.8 BUN/Creatinine Ratio 17.9 Random Glucose 97 mg/dl Calcium Level 9.1 mg/dl Magnesium Level 2.4 mg/dl Kaolin Activated Coagulation Time 219 SECONDS Hemoglobin 7.5 g/dL Hematocrit 21.7 % Assessment and Plan 76 y/o F with possible TIA with developed R sided numbness limited to her R arm , R tongue and R LE on 11/24 and was admitted with a diagnosis of a TIA. B/L carotid stenosis Vascular surgeon input appreciated, Severe right internal carotid artery stenosis s/p Right Carotid Endarterectomy with patch angioplasty on 12/26/2016, POD 0 Possible TIA with developed intermittent blurred vision in her R eye over the past 2-3 day prior to admission Brain MRI has no acute CVA R arm, R tongue and R LE in 11/2016 B/L carotid stenosis Pt recently underwent a carotid US revealing 75% stenosis on R and 90% on L hx of , breast CA, Hypothyroidism, HPL, chemo-related cardiomyopathy . Was on Heparin per request of vascular pending evaluation for intervention, post order will be per vascular surgeon Co ASA and Plavix will be per vascular surgeon Continue telemetry with neurochecks and we will continue her daily statin dose although she cannot tolerate a high dose. Continue supportive care Mostly monitor in the ICU Hypothyroidism - cont Synthroid Full code Discussed with patient and family about a care plan /answer all questions SCD for DVT prophylaxis Continued [facility] stay due to: multiple IV medications needed Discharge planning: home
--- NOTE | 2016-12-16 20:24 | Critical Care Consultation ---
Critical Care Consultation Date of Consultation: Dec 16, 2016. Attending Physician: Jose Carlos Rousseau MD, PhD Reason for Consultation: s/p CEA Observation History of Present Illness Sheryl Scott is a 76-year-old female who presented to the emergency department based on recommendation from her physical education specialist. She was experiencing intermittent changes in her right vision, which included spots predominantly and not actual vision acuity changes; over the course of several days starting Tuesday. The patient is reluctant to provide much history secondary to throat pain from the intubation this afternoon. Therefore her has been giving most of the information with an occasional yes or no from her. Patient's states that approximately 2 weeks ago she experienced some numbness in her tongue and of her right arm; both of which resolved and she did not seek medical care. does state that the patient has had previous TIA history that also included her right face and right hand in November. Upon being seen in the emergency department the patient was aware of a 90% blockage on her right carotid and a 80% blockage of her left. At which time she was seen by Dr. Sutton who recommended CEA; pt refused stated she wanted a second opinion from [facility]. At this time she was started on Plavix. Prior to today's surgery, pt reports having episodes of palpitations. She has never been formally diagnosed with a cardiac arrhythmia; however, has never been worked up with use of a heart monitor. Pt has been seen by neurology this admission who recommended a full work up to TIA/Stroke including MRI and Echo; as well as Right CEA with a plan for future Left CEA. Dr. Sutton examined pt and took her to the OR today for RCEA. It is my understanding that pt remained stable during procedure, EBL was reported as 150mL. Pt denies fever, chills, trouble breathing, chest pain, awareness of tachyarrhythmias, cough, change in bowel or bladder habits. Pt continues to experience nausea and has been treated with Zofran. She complains of 8/10 pain secondary to throat pain during swallowing. Other significant past medical history includes breast CA treated with Chemotherapy, Chemotherapy induced Cardiomyopathy, Hypothyroidism, dyslipidemia , HTN. 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 DOESN'T WANT THE RISK, 12/14/16) Propylthiouracil (Verified Allergy, Mild, 12/14/16) Doxycycline (Verified Allergy, Unknown, UNKNOWN, 12/14/16) Statins (Verified Allergy, Unknown, MUSCLE PAIN, 12/14/16) Sulfa Antibiotics (Verified Allergy, Unknown, RASH, 12/14/16) Home Medications Scheduled Aspirin (Aspirin Ec), 81 MG PO DAILY Atorvastatin (Atorvastatin Calcium), 0.5 TAB PO DAILY Carvedilol (Carvedilol), 6.25 MG PO BID Clopidogrel Bisulfate (Clopidogrel), 75 MG PO QAM Coenzyme Q10 (Ubidecarenone) (Co Q-10), 200 MG PO BID Ezetimibe (Zetia), 10 MG PO HS Flaxseed (Linseed) (Flax Seed Oil), 1,000 MG PO TID Levothyroxine Sodium (Synthroid), 1 TAB PO DAILY Current Inpatient Medications Current Inpatient Medications Medications (Trade) Dose Ordered Sig/Calli Route Start Time Stop Time Status Last Admin Dose Admin Acetaminophen (Tylenol Tab) 650 mg Q4H PRN PO 12/14/16 21:15 01/13/17 21:14 Al Hydrox/Mg Hydrox/Simethicone (Maalox Max Susp) 15 ml Q4H PRN PO 12/14/16 21:15 01/13/17 21:14 Magnesium Hydroxide (Milk Of Magnesia Susp) 30 ml Q12H PRN PO 12/14/16 21:15 01/13/17 21:14 Ondansetron HCl (Zofran Inj) 4 mg Q6H PRN IV 12/14/16 21:15 01/13/17 21:14 12/16/16 18:48 4 MG Polyethylene (Miralax Powder Packet) 17 gm DAILY PRN PO 12/14/16 21:15 01/13/17 21:14 Aspirin (Ecotrin Tab) 81 mg DAILY PO 12/15/16 09:00 01/14/17 08:59 12/16/16 08:12 81 MG Carvedilol (Coreg Tab) 6.25 mg BID PO 12/15/16 09:00 01/14/17 08:59 12/16/16 08:12 6.25 MG Levothyroxine Sodium (Synthroid Tab) 75 mcg DAILYBB PO 12/15/16 06:30 01/14/17 06:29 12/16/16 05:58 75 MCG Atorvastatin Calcium (Lipitor Tab) 5 mg QAM PO 12/15/16 09:00 01/14/17 08:59 12/16/16 08:12 5 MG Fentanyl Citrate (Fentanyl Inj) 50 mcg Q5M PRN IV 12/16/16 16:15 12/16/16 21:15 Hydromorphone HCl (Dilaudid Inj) 0.5 mg Q5M PRN IV 12/16/16 16:15 12/16/16 21:15 Meperidine HCl (Demerol Inj) 25 mg Q5M PRN IV 12/16/16 16:15 12/16/16 21:15 Ondansetron HCl (Zofran Inj) 4 mg ONE PRN IV 12/16/16 16:15 12/16/16 21:15 Labetalol HCl (Normodyne IV) 5 mg Q5M PRN IV 12/16/16 16:15 12/16/16 21:15 Ephedrine Sulfate (EpHEDrine SULFATE INJ) 5 mg Q5M PRN IV 12/16/16 16:15 12/16/16 21:15 Atropine Sulfate (Atropine Sulfate 0.1MG/Ml Inj) 0.5 mg Q1M PRN IV 12/16/16 16:15 12/16/16 21:15 Morphine Sulfate (MoRPHine SULFATE INJ) 4 mg Q4H PRN IV 12/16/16 16:45 12/30/16 16:44 12/16/16 19:30 4 MG Ondansetron HCl (Zofran Inj) 4 mg Q6H PRN IV 12/16/16 16:45 01/15/17 16:44 Cefazolin Sodium 1000 mg/Dextrose 55 ml @ 100 mls/hr Q8H IV 12/16/16 20:00 12/17/16 04:32 Metoprolol Tartrate (Lopressor Iv) 5 mg Q10M PRN IV 12/16/16 16:45 01/15/17 16:44 Nitroglycerin/ Dextrose 250 ml @ 0 mls/hr Q0M PRN IV 12/16/16 16:39 01/15/17 16:38 Sodium Nitroprusside 50 mg/Dextrose 502 ml @ 0 mls/hr Q0M PRN IV 12/16/16 16:39 01/15/17 16:38 Dextrose/Sodium Chloride 1,000 ml @ 125 mls/hr Q8H IV 12/16/16 18:00 01/15/17 17:59 Phenylephrine HCl 20 mg/Dextrose 502 ml @ 0 mls/hr Q0M PRN IV 12/16/16 16:39 01/15/17 16:38 Enoxaparin Sodium (Lovenox Inj) 30 mg Q12H SQ 12/16/16 20:00 01/15/17 19:59 Review of Systems 12 systems reviewed and negative other than previously mentioned in the HPI. Physical Exam Date Time Temp Pulse Resp B/P (MAP) Pulse Ox O2 Delivery O2 Flow Rate FiO2 12/16/16 17:44 56 10 99 12/16/16 17:44 56 10 12/16/16 17:42 102/48 12/16/16 17:39 59 20 99 12/16/16 17:39 36.3 61 16 102/48 99 Mask 2 108/40 12/16/16 17:39 59 20 12/16/16 17:38 61 15 12/16/16 17:38 61 15 99 12/16/16 17:37 102/52 12/16/16 17:33 61 18 100 12/16/16 17:33 61 18 12/16/16 17:32 115/56 12/16/16 17:32 115/56 12/16/16 17:31 63 16 12/16/16 17:31 63 16 100 12/16/16 17:31 63 16 100 12/16/16 17:31 63 16 12/16/16 17:27 115/56 12/16/16 17:27 115/56 12/16/16 17:26 61 16 100 12/16/16 17:26 61 16 12/16/16 17:26 61 16 100 12/16/16 17:26 61 16 12/16/16 17:23 66 19 112/57 100 Mask 10 12/16/16 17:22 117/59 12/16/16 17:22 117/59 12/16/16 17:21 63 18 12/16/16 17:21 63 18 100 12/16/16 17:21 63 18 100 12/16/16 17:21 63 18 12/16/16 17:17 113/56 12/16/16 17:17 113/56 12/16/16 17:16 62 14 12/16/16 17:16 62 14 100 12/16/16 17:16 62 14 100 12/16/16 17:16 62 14 12/16/16 17:13 112/57 12/16/16 17:13 112/57 12/16/16 12:15 Room Air 12/16/16 11:20 36.9 64 16 123/69 (87) 99 12/16/16 08:15 Room Air 12/16/16 07:25 36.5 66 16 124/71 (88) 97 12/16/16 04:19 36.7 69 16 125/72 (89) 97 Room Air 12/16/16 04:00 Room Air 12/16/16 00:00 Room Air 12/15/16 23:06 36.8 72 18 103/65 (78) 96 Room Air 12/15/16 20:45 84 12/15/16 20:30 98 Room Air Vital Signs - as noted Laboratory Data - as noted Physical Exam: General - NAD, trying not to speak Eyes - PERRL, EOMI No icterus, gaze conjugate ENT - Mucosa dry, no lesions or candidiasis Neck - Supple, trachea midline, no masses or lymphadenopathy, no JVD, bruits noted to left, CEA incision clean, dry, minimal swelling, open to air. Lungs - No paradoxical chest wall movement, clear to auscultation bilaterally, no wheezes, rales, or rhonchi Heart - Reg rate and rhythm, No murmur, rubs, clicks, or gallops appreciated Abdomen - BS present, no bruits noted, tympanic to percussion, soft, nontender, nondistended, no organomegaly Extremities - No edema, pedal pulses intact Neuro - A&OX4 Strength extremities equal and appropriate bilaterally Reflexes: normal and equal CN:PERRL, EOMI, no facial asymmetry, uvula/tongue midline Laboratory Results Last 24 Hours Test 12/16/16 06:17 12/16/16 15:55 12/16/16 17:20 12/16/16 18:35 Activated Partial Thromboplast Time 76.6 SECONDS Partial Thromboplastin Ratio 2.9 Sodium Level 144 mmol/L Potassium Level 3.7 mmol/L Chloride Level 110 mmol/L Carbon Dioxide Level 26 mmol/L Anion Gap 8.0 mmol/L Blood Urea Nitrogen 13 mg/dl Creatinine 0.70 mg/dl Est Creatinine Clear Calc Drug Dose 56.3 ml/min Estimated GFR () 98.2 Estimated GFR (Non- 84.8 BUN/Creatinine Ratio 17.9 Random Glucose 97 mg/dl Calcium Level 9.1 mg/dl Magnesium Level 2.4 mg/dl Kaolin Activated Coagulation Time 219 SECONDS Hemoglobin 7.5 g/dL Hematocrit 21.7 % Diagnostic Results MRI OF THE BRAIN WITHOUT IV CONTRAST CLINICAL HISTORY: Transient ischemic attack. COMPARISON STUDY: CT of the brain dated 12/14/2016. TECHNIQUE: MRI of the brain was performed utilizing various T1 and T2-weighted sequences in the axial, sagittal, and coronal planes. IV contrast was not administered for this examination. FINDINGS: Brain parenchyma: There are age-related involutional changes noting moderate patchy subcortical and periventricular microangiopathic disease. There is no hemorrhage or mass effect. There is no restricted diffusion to suggest acute ischemia. Schmidt-white matter differentiation is preserved. No extra-axial fluid collection is seen. The cerebellar tonsils are normal in configuration. Ventricles, sulci, and cisterns: Prominent secondary to involutional change. Pituitary and sella: Unremarkable. Intracranial vasculature: Normal flow voids are maintained at the skull base. Orbits: The bony orbits are grossly intact. Orbital contents are normal in appearance noting bilateral ocular lens implants. Sinuses and mastoids: There is a small right mastoid effusion. The left mastoid air cells and the paranasal sinuses are clear. Calvarium: Unremarkable. Cervical cord: Partially visualized cervical spinal cord is normal in morphology and signal intensity. IMPRESSION: Senescent changes as above with no hemorrhage, mass effect, or evidence of acute ischemia. Electronically signed by: Kash Yanez M.D. 12/15/2016 5:31 PM Dictated Date/Time: 12/15/2016 5:28 PM __ SINGLE VIEW CHEST CLINICAL HISTORY: Strokelike symptoms. FINDINGS: An AP, portable, upright chest radiograph is compared to study dated 03/12/2007. The examination is degraded by portable technique and patient rotation. The cardiomediastinal silhouette is unremarkable. There is atherosclerotic calcification of the thoracic aorta. Emphysema and chronic interstitial thickening are similar to previous. No airspace consolidation, large pleural effusion, or pneumothorax is seen. The skeletal structures are osteopenic. The bony thorax is grossly intact. Surgical clips are noted in the left axilla. IMPRESSION: Emphysema with no acute cardiopulmonary abnormality. Electronically signed by: Kash Yanez M.D. 12/14/2016 5:17 PM Dictated Date/Time: 12/14/2016 5:[address] SCAN OF THE BRAIN WITHOUT IV CONTRAST CLINICAL HISTORY: Blurry vision in the right eye. COMPARISON STUDY: CT of the brain dated 11/25/2016. TECHNIQUE: Unenhanced axial CT scan of the brain is performed from the vertex to the skull base. CT DOSE: 580.48 mGy.cm FINDINGS: Brain parenchyma: There are age-related involutional changes noting moderate patchy subcortical and periventricular microangiopathic change. 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 There is no hemorrhage, mass effect, or evidence of acute territorial ischemia by CT criteria. Schmidt-white matter is preserved. No extra-axial fluid collection is seen. Ventricles, sulci, cisterns: Prominent secondary to involutional change. Intracranial vasculature: There is atherosclerotic calcification of the cavernous carotid arteries. Calvarium: Unremarkable. Sinuses and mastoids: The visualized paranasal sinuses are clear. The mastoid air cells are well pneumatized. Orbits: The bony orbits are grossly intact. Findings suggest previous bilateral ocular lens surgery. IMPRESSION: There is no hemorrhage, mass effect, or evidence of acute territorial ischemia by CT criteria. Electronically signed by: Kash Yanez M.D. 12/14/2016 5:28 PM Dictated Date/Time: 12/14/2016 5:24 PM Assessment & Plan (1) Hypertension (2) TIA (transient ischemic attack) (3) Hypothyroidism (4) Carotid stenosis, bilateral (5) Dyslipidemia Neuro: * No current unilateral neurological signs/symptoms * Monitor for Neuro changes per protocol * Pain level continues at 8/10 * Dr. Ochoa to order Ketamine x 2 * Continue Morphine 4mg IV q4h * Appreciate Dr. Reynoso's input * will require continue Plavix, ASA 81mg, and Statin for stroke prevention * Statin noted in Allergies for muscle pain; however, Atorvastatin 10mg is noted as ongoing home medication * Per Neurology: SBP Goal for this admission is to remain 150-175 SBP; avoid hypotension * SBP currently running 160/72 per Arterial Line Cardiac: * Right Carotid Endarterectomy, POD # [address] Sutton * Site is clean and dry with minimal swelling noted. Open to air * Pt previously on heparin drip, discontinued due to surgical procedure. * ECHO this admission: * EF: 60-65% and mild to moderate Tricuspid Regurgitation * No signs of arrhythmia noted this admission * SBP as noted above in Neuro * Monitor on telemetry * resume all home cardiac meds when possible Heme: * Pt noted to have significant drop in hemoglobin. 12.0 to 7.5 * Repeat H&H noted false lab numbers: Hgb of 10.8 * Will hold on transfusion * Monitor daily H&H * EBL in Surgery 150mL * DVT Prophylaxis restarted: Lovenox 30mg q 12h GI: * Pt complains of nausea * Treated with Zofran currently * Will attempt to lower pain and anxiety * Phenergan 25mg IV, if unsuccessful * AHA/Vegetarian Diet ordered * Will hold until pt feels she can tolerate * No bowel movement this admission ( 2 days) * GI Prophylaxis: Not Indicated Endocrine: * Hx/o hypothyroidism * Continue home levothyroxine * No history of DM * Monitor BSG per protocol Pulmonary: * Adequate saturations, on 2L * Wean off as tolerated * Monitor closely for airway changes * Monitor on telemetry I.D. * Prophylactic Abx: Ancef 1g q8h x 2 * WBC wnl * Afebrile; Monitor fever curve : * Pt voiding, no goodson in place * 3L (+) Positive this admission * D5W 1/2NSS @ 125 mL/hr * Monitor I&O's Access: Right Radial Arterial Line, 2 PIVs in Right; No indication for central access at this time CCT: 0 minutes; Level 3 Inpatient Billing; Not including any billable procedures. Thank you for including us in the care of this patient. Please review Dr. Jj Ochoa's addendum for further recommendations. I have personally evaluated and examined this patient. I agree with assessment and plan of Tawny Mercedes PA-C. Significant pain and nausea present on arrival in ICU. Required ketamine, phenergan, ativan: significant reduction in pain and nausea, was able to sleep. Spurious H/H, d/c'ed blood transfusion.
[2016-12-16] MEDS ORDERED: KETAMINE HCL INJ 50 MG/ML 10 ML VIAL IV STA ×2 (20:30→21:57)
[2016-12-16 20:37] LABS: HEMATOCRIT 32.7 % (37-47)
[2016-12-16] MEDS: D5W AND 1/2NSS 1,000 ML IV SCH (20:48)
[2016-12-16] MEDS: ENOXAPARIN 30 MG/0.3 ML SYR SQ SCH (20:49)
[2016-12-16] MEDS: CEFAZOLIN IV 1,000 MG in DEXTROSE 5% 50ML 50 ML IV SCH (20:49)
[2016-12-16] MEDS ORDERED: PROMETHAZINE HCL INJ 25 MG in SODIUM CHLORIDE 0.9% 50ML 50 ML IV STA (22:18)
[2016-12-16] MEDS ORDERED: LORAZEPAM 2 MG/ML 1 ML VIAL IV STA (22:21)
[2016-12-17] VITALS (21 sets, daily range): BP systolic 77–130; BP diastolic 37–73; PULSE 62–85; TEMP 36.3–36.9; O2SAT 98–100
--- NOTE | 2016-12-17 01:09 | OPERATIVE REPORT ---
DATE OF OPERATION: 12/16/2016 PREOPERATIVE DIAGNOSIS: Severe symptomatic right internal carotid artery stenosis. POSTOPERATIVE DIAGNOSIS: Severe symptomatic right internal carotid artery stenosis. PROCEDURE: Right carotid endarterectomy with Bartlett Acuseal patch angioplasty. SURGEON: Dr. Thom Sutton. REFERRAL AGENT: Dr. Heaven Read. ESTIMATED BLOOD LOSS: 200 mL SPECIMEN: Right carotid plaque. ANESTHESIA: General anesthesia plus local. COMPLICATIONS: None. CONDITION: Stable. INDICATIONS: Mrs. Sheryl Scott is a 76-year-old woman with history of hyperlipidemia, hypothyroidism, breast cancer, status post radical mastectomy, partial hysterectomy, with known left carotid stenosis, who presents with symptomatic right carotid stenosis. She underwent imaging which showed significant severe right carotid artery stenosis previously. Her symptoms included visual changes. She was seen by her core drier who was concerned that there was not sufficient blood flow to her right eye. For this reason, she was recommended to undergo right carotid endarterectomy. The risks, benefits and alternatives including stroke risk were discussed with the patient and she consented to the procedure. DESCRIPTION OF PROCEDURE: The patient was taken to the operating room and placed in supine position. General anesthesia was induced by our anesthesia colleagues. Right radial A-line was placed. The patient's right neck and chest were prepped and draped in the usual sterile fashion. Safety timeout was performed, and the patient, procedure, and sidedness were correctly identified. An incision was made over the anterior border of the sternocleidomastoid muscle with a scalpel. Electrocautery was used to dissect through the subcutaneous tissues and the platysma. Sternocleidomastoid muscle was identified and retracted laterally. We continued our dissection and were able to identify the internal jugular and this was retracted laterally as well. Next, we encountered the common carotid artery. We dissected this circumferentially. Continued our dissection proximally and identified the external carotid artery which was encircled with a vessel loop. We then were able to expose the internal carotid artery which was dissected circumferentially. The patient was systemically anticoagulated with 7000 units of intravenous heparin. The internal carotid, common carotid, and external carotid arteries were clamped systematically. 11 blade scalpel was used to create a longitudinal arteriotomy and this was extended with Castro scissors. A Doppler shunt was brought onto the field and placed into the internal carotid artery. There was brisk backbleeding through the shunt. The distal end was then placed into the common carotid artery. Unfortunately, the proximal end became dislodged and there was some blood loss with this. It was replaced without difficulty. We then turned our attention to the plaque. This was removed using a plaque elevator. The artery was flushed with heparinized saline and any small bits of plaque were removed. A Bartlett Acuseal patch was then brought onto the field. This was sutured in place using Bartlett-Jim CV6 suture in a running fashion. Prior to completion of the patch, the shunt was removed and all arteries were back bled and the artery was flushed with heparinized saline. There was brisk backbleeding from the internal, common, and external carotid arteries. Following completion of our patch, Gelfoam and thrombin were applied as topical hemostatic agents, and manual pressure was held. There were some areas of bleeding surrounding the patch requiring placement of 3 interrupted 6-0 Prolene sutures. This provided good hemostasis. Wound was irrigated. Two small pieces of Gelfoam were left behind covering the patch. Platysma was reapproximated using 3-0 Vicryl in a running fashion. The skin was reapproximated using 4-0 Vicryl in a running subcuticular fashion. Dermabond skin glue was applied to the surgical incision. Local anesthesia was injected surrounding the incision. The patient was awakened from anesthesia and was following commands in all 4 extremities. She was extubated and transferred to the post-anesthesia care unit in stable condition. She appeared to have tolerated the procedure well. Dr. Thom Sutton was present and scrubbed for the entire procedure. I, Dr. Sutton was present and scrubed for the entire procedure. I attest to the content of the Intraoperative Record and any orders documented therein. Any exceptions are noted below. [facility]
[2016-12-17] MEDS: CEFAZOLIN IV 1,000 MG in DEXTROSE 5% 50ML 50 ML IV SCH (03:46)
[2016-12-17] MEDS: D5W AND 1/2NSS 1,000 ML IV SCH (05:36)
[2016-12-17] MEDS: LEVOTHYROXINE 75 MCG TAB PO SCH (05:36)
[2016-12-17 06:07] LABS: COMPLETE YES; IG% 0.2 %; LYMPH % 6.9 %; LYMPH ABS # 0.71 K/uL (1.2-3.4); MEAN CELL VOLUME 89.3 fL (80-100); MEAN CORPUSCULAR HEMOGLOBIN 30.3 pg (25-34); MEAN CORPUSCULAR HGB CONC 33.9 g/dl (32-36); MEAN PLATELET VOLUME 9.6 fL (7.4-10.4); MONO % 4.2 %; NEUT % 88.7 %; PLATELET COUNT 204 K/uL (130-400); RED BLOOD COUNT 3.47 M/uL (4.2-5.4); WHITE BLOOD COUNT 10.28 K/uL (4.8-10.8)
--- NOTE | 2016-12-17 06:26 | Critical Care Progress Note ---
Critical Care Progress Note Date of Service Dec 17, 2016. ICU Day ICU Day Number: S/P R CEA Post-Op Observation Attending Dr. Ochoa Subjective Sheryl Scott is POD #1 from a Right Carotid Endarterectomy that was 90% occluded and symptomatic over the last 2 weeks causing initially right arm and tongue numbness and followed my spotty vision of the right eye most recently. Today she is without unilateral neurological changes. She was sedated overnight and was without complaint. She experience a period of hypotension which rebounded to her previous baseline. Pt states pain has improved to a 5/ 10 this morning. She is still very groggy from night sedation but is following all commands and answers all questions reasonable. She is still somewhat hesitant to speak for fear of her throat pain. She has NOT complained of any continuation of last nights nausea this morning. Pt denies fever, chills, difficulty breathing, cough, chest pain/pressure, awareness of tachyarrhythmia. She had a goodson placed over night which is draining semi-concentrated urine. Pt has not a bowel movement to date. Pt denies continuation of her prior neurological symptoms or numbness/tingling. Objective Vital Signs - as noted Laboratory Data - as noted Physical Exam: General - NAD, Groggy from evening sedation but resting comfortably Eyes - PERRL, EOMI No icterus, gaze conjugate ENT - Mucosa dry, no lesions or candidiasis Neck - Supple, trachea midline, no masses or lymphadenopathy, no JVD; CEA Incision closed, dry, and with minimal swelling noted. Bruit noted to left Lungs - No paradoxical chest wall movement, clear to auscultation bilaterally, no wheezes, rales, or rhonchi Heart - Reg rate and rhythm, No murmur, rubs, clicks, or gallops appreciated Abdomen - BS hypoactive, no bruits noted, tympanic to percussion, soft, nontender, nondistended, no organomegaly Extremities - No edema, pedal pulses intact Neuro - A&O x 4 Strength: extremities equal and appropriate bilaterally Reflexes: normal and equal CN:PERRL, EOMI, no facial asymmetry, uvula/tongue midline Current SOFA Score SOFA Score Response (Comments) Value Platelets (x10) > 150 0 Bilirubin (mg/dL) < 1.2 0 [place] Coma Score 15 0 Level of Hypotension No Hypotension 0 Creatinine (mg/dL) < 1.2 0 Total 0 Assessment & Plan (1) Hypertension (2) TIA (transient ischemic attack) (3) Hypothyroidism (4) Carotid stenosis, bilateral (5) Dyslipidemia PLAN: Neuro: * POD #1 R. CEA for symptomatic 90% blockage by Dr. Sutton * No Unilateral neurological changes, vision without complaint * Pain level decreasing: Continue to treat, avoiding hypotension * Neuro checks per protocol * Pt should ambulate twice q shift Resp: * Supplemental oxygen as required; currently 2L nasal cannula * Wean as tolerated * Monitor on telemetry; adequate saturations at this time CV: * Hemodynamically stable: SBP 90-110's * No ectopy noted overnight * Continue to monitor on telemetry * Plan to restart home meds today, if pt tolerates PO Fluids/Renal: * D5W 1/2 NSS at 125mL/hr continue * Positive 4.3L this admission; 400mL this AM * Goodson placed overnight, drained 600mL immediately * Follow I&O's & daily PRP ID: * Afebrile, WBCs: 10.28 * No gross sign of infection at this time * Post-operative Day #1: Rcv'd 2g Ancef prophylactically * Monitor daily labs and fever curve GI/Nutrition: * Pt currently ordered diet, will monitor for level of alertness prior to breakfast this morning * No nausea currently, will monitor for changes: IV Zofran as needed * No bowel movement this admission, consider bowel regimen in none in 24 hrs Heme: * H&H stable 10.5/31.0 * Plts 204 * No gross sign of bleeding * DVT Prophylaxis: Lovenox 30mg q12h Endocrine: * Continue home Levothyroxine 75mcg * Accu-Checks per protocol, started insulin infusion for 2 blood sugars greater than 180 Access: Limb restriction: 2 PIVs and Right Radial Arterial Line to right upper extremity CCT: 0 Minutes; Level 2 inpatient billing; This time is exclusive of all separately billable procedures. Thank you for involving us in the care of this patient. Please refer to Dr. Jj Ochoa's addendum for further recommendations. I have personally evaluated and examined this patient. I agree with assessment and plan of Tawny Walter/Markel Sutton, will transfer to floor today. Consults & Procedures Consultants: Neuro: Dr. Edgardo Vascular Surg: Dr. Sutton Procedures: Right Radial Artery: In OR 12/16/16 Data Medications: Current Inpatient Medications Medications (Trade) Dose Ordered Sig/Calli Route Start Time Stop Time Status Last Admin Dose Admin Acetaminophen (Tylenol Tab) 650 mg Q4H PRN PO 12/14/16 21:15 01/13/17 21:14 Al Hydrox/Mg Hydrox/Simethicone (Maalox Max Susp) 15 ml Q4H PRN PO 12/14/16 21:15 01/13/17 21:14 Magnesium Hydroxide (Milk Of Magnesia Susp) 30 ml Q12H PRN PO 12/14/16 21:15 01/13/17 21:14 Ondansetron HCl (Zofran Inj) 4 mg Q6H PRN IV 12/14/16 21:15 01/13/17 21:14 12/16/16 18:48 4 MG Polyethylene (Miralax Powder Packet) 17 gm DAILY PRN PO 12/14/16 21:15 01/13/17 21:14 Aspirin (Ecotrin Tab) 81 mg DAILY PO 12/15/16 09:00 01/14/17 08:59 12/16/16 08:12 81 MG Carvedilol (Coreg Tab) 6.25 mg BID PO 12/15/16 09:00 01/14/17 08:59 12/16/16 08:12 6.25 MG Levothyroxine Sodium (Synthroid Tab) 75 mcg DAILYBB PO 12/15/16 06:30 01/14/17 06:29 12/17/16 05:36 75 MCG Atorvastatin Calcium (Lipitor Tab) 5 mg QAM PO 12/15/16 09:00 01/14/17 08:59 12/16/16 08:12 5 MG Morphine Sulfate (MoRPHine SULFATE INJ) 4 mg Q4H PRN IV 12/16/16 16:45 12/30/16 16:44 12/16/16 19:30 4 MG Ondansetron HCl (Zofran Inj) 4 mg Q6H PRN IV 12/16/16 16:45 01/15/17 16:44 Metoprolol Tartrate (Lopressor Iv) 5 mg Q10M PRN IV 12/16/16 16:45 01/15/17 16:44 Nitroglycerin/ Dextrose 250 ml @ 0 mls/hr Q0M PRN IV 12/16/16 16:39 01/15/17 16:38 Sodium Nitroprusside 50 mg/Dextrose 502 ml @ 0 mls/hr Q0M PRN IV 12/16/16 16:39 01/15/17 16:38 Dextrose/Sodium Chloride 1,000 ml @ 125 mls/hr Q8H IV 12/16/16 18:00 01/15/17 17:59 12/17/16 05:36 125 MLS/HR Phenylephrine HCl 20 mg/Dextrose 502 ml @ 0 mls/hr Q0M PRN IV 12/16/16 16:39 01/15/17 16:38 Enoxaparin Sodium (Lovenox Inj) 30 mg Q12H SQ 12/16/16 20:00 01/15/17 19:59 12/16/16 20:49 30 MG Vital Signs: Date Time Temp Pulse Resp B/P (MAP) Pulse Ox O2 Delivery O2 Flow Rate FiO2 12/17/16 04:02 74 10 91/45 100 92/41 12/17/16 04:00 36.4 12/17/16 04:00 100 Nasal Cannula 2.0 12/17/16 03:32 71 14 81/45 100 103/42 12/17/16 03:02 76 10 85/45 100 100/42 12/17/16 02:33 75 18 83/44 100 96/42 12/17/16 02:02 75 20 88/52 100 97/43 12/17/16 01:32 85 10 107/53 100 109/51 12/17/16 01:02 85 9 77/56 100 106/48 12/17/16 00:32 83 9 85/45 100 80/40 12/17/16 00:02 85 13 119/66 100 130/73 12/16/16 23:59 100 Nasal Cannula 2.0 12/16/16 23:32 79 10 71/36 (48) 100 12/16/16 23:30 79 8 73/37 (49) 100 12/16/16 23:22 80 13 86/47 100 12/16/16 23:12 82 10 72/32 (45) 100 12/16/16 23:02 82 14 86/52 100 84/37 12/16/16 23:02 82 10 84/37 (53) 100 12/16/16 23:00 82 12 88/39 (55) 100 12/16/16 22:45 80 12 111/46 (67) 100 12/16/16 22:30 77 10 145/57 (86) 100 12/16/16 22:22 89 10 151/63 (92) 100 12/16/16 22:15 85 15 156/66 (96) 100 12/16/16 22:13 82 12 160/66 (97) 100 12/16/16 22:02 85 11 158/68 (98) 100 12/16/16 22:00 76 13 151/63 (92) 99 12/16/16 21:45 72 16 142/54 (83) 100 12/16/16 21:42 82 13 153/64 (93) 100 12/16/16 21:32 78 18 160/72 (101) 100 12/16/16 21:30 73 12 150/62 (91) 100 12/16/16 21:22 57 13 154/61 (92) 100 12/16/16 21:15 79 12 146/63 (90) 100 12/16/16 21:12 97 16 181/91 (121) 100 12/16/16 21:02 62 11 121/42 (68) 100 12/16/16 21:00 52 10 117/39 (65) 100 12/16/16 20:52 52 13 120/43 (68) 100 12/16/16 20:45 52 12 113/39 (63) 100 12/16/16 20:42 73 15 119/49 (72) 100 12/16/16 20:32 51 9 102/32 (55) 100 12/16/16 20:30 61 13 118/45 (69) 100 12/16/16 20:22 48 13 105/36 (59) 100 12/16/16 20:15 52 12 107/37 (60) 100 12/16/16 20:12 52 12 102/35 (57) 100 12/16/16 20:02 50 13 94/33 (53) 100 12/16/16 20:00 56 14 99/35 (56) 95 12/16/16 20:00 100 Nasal Cannula 2.0 12/16/16 19:52 51 14 95/30 (51) 100 6/8/17 19:45 53 9 95/31 (52) 99 17 19:42 60 18 98/35 (56) 98 17 19:32 57 13 89/63 (72) 96 17 19:30 59 20 103/38 (59) 91 /17 19:22 52 9 97/34 (55) 95 /17 19:15 57 15 102/37 (58) 94 17 19:12 58 16 101/37 (58) 97 12/16/16 19:02 55 11 97/35 (55) 94 12/16/16 19:00 57 14 105/38 (60) 95 17 18:52 54 15 105/39 (61) 95 12/16/16 18:45 58 13 107/40 (62) 98 12/16/16 18:42 57 14 108/41 (63) 97 12/16/16 18:32 55 14 110/42 (64) 97 12/16/16 18:31 59 14 123/50 (74) 97 12/16/16 18:30 36.7 58 18 124/47 (72) 98 12/16/16 17:44 56 10 99 17 17:44 56 10 12/16/16 17:42 102/48 12/16/16 17:39 59 20 99 17 17:39 36.3 61 16 102/48 99 Mask 2 108/40 17 17:39 59 20 17 17:38 61 15 17 17:38 61 15 99 17 17:37 102/52 17 17:33 61 18 100 817 17:33 61 18 17 17:32 115/56 17 17:32 115/56 17 17:31 63 16 8/17 17:31 63 16 100 17 17:31 63 16 100 17 17:31 63 16 6817 17:27 115/56 817 17:27 115/56 8/17 17:26 61 16 100 817 17:26 61 16 17 17:26 61 16 100 6/8/17 17:26 61 16 12/16/16 17:23 66 19 112/57 100 Mask 10 12/16/16 17:22 117/59 12/16/16 17:22 117/59 12/16/16 17:21 63 18 12/16/16 17:21 63 18 100 12/16/16 17:21 63 18 100 12/16/16 17:21 63 18 12/16/16 17:17 113/56 12/16/16 17:17 113/56 12/16/16 17:16 62 14 12/16/16 17:16 62 14 100 12/16/16 17:16 62 14 100 12/16/16 17:16 62 14 12/16/16 17:13 112/57 12/16/16 17:13 112/57 12/16/16 12:15 Room Air 12/16/16 11:20 36.9 64 16 123/69 (87) 99 12/16/16 08:15 Room Air 12/16/16 07:25 36.5 66 16 124/71 (88) 97 Laboratory Results: Last 24 Hours Test 12/16/16 06:17 12/16/16 15:55 12/16/16 17:20 12/16/16 18:35 Activated Partial Thromboplast Time 76.6 SECONDS Partial Thromboplastin Ratio 2.9 Sodium Level 144 mmol/L Potassium Level 3.7 mmol/L Chloride Level 110 mmol/L Carbon Dioxide Level 26 mmol/L Anion Gap 8.0 mmol/L Blood Urea Nitrogen 13 mg/dl Creatinine 0.70 mg/dl Est Creatinine Clear Calc Drug Dose 56.3 ml/min Estimated GFR () 98.2 Estimated GFR (Non- 84.8 BUN/Creatinine Ratio 17.9 Random Glucose 97 mg/dl Calcium Level 9.1 mg/dl Magnesium Level 2.4 mg/dl Kaolin Activated Coagulation Time 219 SECONDS Hemoglobin 7.5 g/dL 10.8 g/dL Hematocrit 21.7 % 32.7 % Test 12/16/16 21:04 12/17/16 04:44 12/17/16 05:50 Bedside Glucose 120 mg/dl
[2016-12-17 06:42] LABS: CREATININE 0.77 mg/dl (0.60-1.20); MAGNESIUM 1.9 mg/dl (1.8-2.4); POTASSIUM 3.7 mmol/L (3.5-5.1)
[2016-12-17 06:45] LABS: CALCIUM 8.2 mg/dl (8.5-10.1)
[2016-12-17] MEDS: POTASSIUM CHLORIDE 20 MEQ TABCR PO SCH ×2 (07:54→13:57)
[2016-12-17] MEDS: ENOXAPARIN 30 MG/0.3 ML SYR SQ SCH (07:55)
[2016-12-17] MEDS: ATORVASTATIN 10 MG TAB PO SCH (07:56)
[2016-12-17] MEDS: ASPIRIN 81 MG ECTAB PO SCH (07:56)
[2016-12-17] MEDS ORDERED: GLUCOSE 40% GEL 15 GM TUBE PO PRN (08:30)
[2016-12-17] MEDS ORDERED: DEXTROSE 50% 50 ML SYR IV PRN (08:30)
[2016-12-17] MEDS ORDERED: PHARMACY GLYCEMIC MGMT CONSULT PRN (08:30)
[2016-12-17] MEDS ORDERED: GLUCAGON FOR INJ 1 MG VIAL SQ PRN (08:30)
[2016-12-17] MEDS ORDERED: GLUCOSE 10 TABS/TUBE PO PRN (08:30)
[2016-12-17] MEDS ORDERED: MAGNESIUM SULFATE 1GM / D5W 1 GM in PREMIXED IN D5W 100 ML IV SCH (08:30)
[2016-12-17] MEDS ORDERED: OXYCODONE/ACETAMINOPHEN 5-325 TAB PO PRN (08:45)
--- NOTE | 2016-12-17 08:55 | Neurology Progress Notes ---
Neurology Progress Note Date of Service Dec 17, 2016. Subjective Doing well post op. No new neuro symptoms. Pt reported some hallucinations post op that have resolved. MRI report and images reviewed. No recent strokes. Has signs of either chronic small vessel ischemic Dz vs chronic small embolic ischemic Dz in the subcortical white matter bilaterally. Objective Date Time Temp Pulse Resp B/P (MAP) Pulse Ox O2 Delivery O2 Flow Rate FiO2 12/17/16 06:00 62 13 122/65 100 94/37 12/17/16 05:02 78 14 102/53 100 106/44 12/17/16 04:02 74 10 91/45 100 92/41 12/17/16 04:00 36.4 12/17/16 04:00 100 Nasal Cannula 2.0 12/17/16 03:32 71 14 81/45 100 103/42 12/17/16 03:02 76 10 85/45 100 100/42 12/17/16 02:33 75 18 83/44 100 96/42 12/17/16 02:02 75 20 88/52 100 97/43 12/17/16 01:32 85 10 107/53 100 109/51 12/17/16 01:02 85 9 77/56 100 106/48 12/17/16 00:32 83 9 85/45 100 80/40 12/17/16 00:02 85 13 119/66 100 130/73 12/16/16 23:59 100 Nasal Cannula 2.0 12/16/16 23:32 79 10 71/36 (48) 100 12/16/16 23:30 79 8 73/37 (49) 100 12/16/16 23:22 80 13 86/47 100 12/16/16 23:12 82 10 72/32 (45) 100 12/16/16 23:02 82 14 86/52 100 84/37 12/16/16 23:02 82 10 84/37 (53) 100 12/16/16 23:00 82 12 88/39 (55) 100 12/16/16 22:45 80 12 111/46 (67) 100 12/16/16 22:30 77 10 145/57 (86) 100 12/16/16 22:22 89 10 151/63 (92) 100 12/16/16 22:15 85 15 156/66 (96) 100 12/16/16 22:13 82 12 160/66 (97) 100 12/16/16 22:02 85 11 158/68 (98) 100 12/16/16 22:00 76 13 151/63 (92) 99 12/16/16 21:45 72 16 142/54 (83) 100 12/16/16 21:42 82 13 153/64 (93) 100 12/16/16 21:32 78 18 160/72 (101) 100 12/16/16 21:30 73 12 150/62 (91) 100 12/16/16 21:22 57 13 154/61 (92) 100 12/16/16 21:15 79 12 146/63 (90) 100 12/16/16 21:12 97 16 181/91 (121) 100 12/16/16 21:02 62 11 121/42 (68) 100 12/16/16 21:00 52 10 117/39 (65) 100 12/16/16 20:52 52 13 120/43 (68) 100 12/16/16 20:45 52 12 113/39 (63) 100 12/16/16 20:42 73 15 119/49 (72) 100 12/16/16 20:32 51 9 102/32 (55) 100 12/16/16 20:30 61 13 118/45 (69) 100 12/16/16 20:22 48 13 105/36 (59) 100 12/16/16 20:15 52 12 107/37 (60) 100 12/16/16 20:12 52 12 102/35 (57) 100 12/16/16 20:02 50 13 94/33 (53) 100 12/16/16 20:00 56 14 99/35 (56) 95 12/16/16 20:00 100 Nasal Cannula 2.0 12/16/16 19:52 51 14 95/30 (51) 100 12/16/16 19:45 53 9 95/31 (52) 99 12/16/16 19:42 60 18 98/35 (56) 98 12/16/16 19:32 57 13 89/63 (72) 96 12/16/16 19:30 59 20 103/38 (59) 91 12/16/16 19:22 52 9 97/34 (55) 95 12/16/16 19:15 57 15 102/37 (58) 94 6/8/17 19:12 58 16 101/37 (58) 97 6/8/17 19:02 55 11 97/35 (55) 94 68/17 19:00 57 14 105/38 (60) 95 68/17 18:52 54 15 105/39 (61) 95 6/8/17 18:45 58 13 107/40 (62) 98 6/8/17 18:42 57 14 108/41 (63) 97 68/17 18:32 55 14 110/42 (64) 97 68/17 18:31 59 14 123/50 (74) 97 68/17 18:30 36.7 58 18 124/47 (72) 98 17 17:44 56 10 99 17 17:44 56 10 17 17:42 102/48 17 17:39 59 20 99 8/17 17:39 36.3 61 16 102/48 99 Mask 2 108/40 17 17:39 59 20 17 17:38 61 15 817 17:38 61 15 99 8/17 17:37 102/52 12/16/17 17:33 61 18 100 817 17:33 61 18 17 17:32 115/56 17 17:32 115/56 12/16/17 17:31 63 16 68/17 17:31 63 16 100 8/17 17:31 63 16 100 17 17:31 63 16 8/17 17:27 115/56 17 17:27 115/56 68/17 17:26 61 16 100 68/17 17:26 61 16 68/17 17:26 61 16 100 8/17 17:26 61 16 8/17 17:23 66 19 112/57 100 Mask 10 8/17 17:22 117/59 68/17 17:22 117/59 68/17 17:21 63 18 68/17 17:21 63 18 100 68/17 17:21 63 18 100 8/17 17:21 63 18 8/17 17:17 113/56 6/17 17:17 113/56 12/16/16 17:16 62 14 12/16/16 17:16 62 14 100 12/16/16 17:16 62 14 100 12/16/16 17:16 62 14 12/16/16 17:13 112/57 12/16/16 17:13 112/57 12/16/16 12:15 Room Air 12/16/16 11:20 36.9 64 16 123/69 (87) 99 Last 24 Hours Test 12/16/16 15:55 12/16/16 17:20 12/16/16 18:35 12/16/16 21:04 Kaolin Activated Coagulation Time 219 SECONDS Hemoglobin 7.5 g/dL 10.8 g/dL Hematocrit 21.7 % 32.7 % Bedside Glucose 120 mg/dl Test 12/17/16 05:50 White Blood Count 10.28 K/uL Red Blood Count 3.47 M/uL Hemoglobin 10.5 g/dL Hematocrit 31.0 % Mean Corpuscular Volume 89.3 fL Mean Corpuscular Hemoglobin 30.3 pg Mean Corpuscular Hemoglobin Concent 33.9 g/dl Platelet Count 204 K/uL Mean Platelet Volume 9.6 fL Neutrophils (%) (Auto) 88.7 % Lymphocytes (%) (Auto) 6.9 % Monocytes (%) (Auto) 4.2 % Eosinophils (%) (Auto) 0.0 % Basophils (%) (Auto) 0.0 % Neutrophils # (Auto) 9.12 K/uL Lymphocytes # (Auto) 0.71 K/uL Monocytes # (Auto) 0.43 K/uL Eosinophils # (Auto) 0.00 K/uL Basophils # (Auto) 0.00 K/uL RDW Standard Deviation 42.2 fL RDW Coefficient of Variation 13.0 % Immature Granulocyte % (Auto) 0.2 % Immature Granulocyte # (Auto) 0.02 K/uL Sodium Level 141 mmol/L Potassium Level 3.7 mmol/L Chloride Level 106 mmol/L Carbon Dioxide Level 25 mmol/L Anion Gap 10.0 mmol/L Blood Urea Nitrogen 15 mg/dl Creatinine 0.77 mg/dl Est Creatinine Clear Calc Drug Dose 51.8 ml/min Estimated GFR () 87.5 Estimated GFR (Non- 75.5 BUN/Creatinine Ratio 19.0 Bedside Glucose 204 mg/dl Random Glucose 193 mg/dl Calcium Level 8.2 mg/dl Magnesium Level 1.9 mg/dl Exam: Gen.: Patient is alert and oriented in no acute distress lying in bed Heart: Regular rate and rhythm Extremities: No gross deformities or rashes noted Neurological examination: Mental status: Patient is alert and oriented to person place and time. Able to give his own history. Attention concentration normal for the situation. Speech is fluent without any dysarthria or aphasia noted (low volume) Cranial nerves: Visual hardin intact to counting. Extraocular muscles intact without nystagmus. No facial asymmetry noted. Facial sensation intact. Tongue midline. Good palatal elevation. Hearing grossly intact voice. Strength: 5/5 both proximal and distal in all extremities .no arm drift. Tone is normal. Sensation: Grossly intact to light touch in all extremities Coordination: Patient has good finger to nose without dysmetria Station within the bed is normal. Current Inpatient Medications Medications (Trade) Dose Ordered Sig/Calli Route Start Time Stop Time Status Last Admin Dose Admin Acetaminophen (Tylenol Tab) 650 mg Q4H PRN PO 12/14/16 21:15 01/13/17 21:14 Al Hydrox/Mg Hydrox/Simethicone (Maalox Max Susp) 15 ml Q4H PRN PO 12/14/16 21:15 01/13/17 21:14 Magnesium Hydroxide (Milk Of Magnesia Susp) 30 ml Q12H PRN PO 12/14/16 21:15 01/13/17 21:14 Polyethylene (Miralax Powder Packet) 17 gm DAILY PRN PO 12/14/16 21:15 01/13/17 21:14 Aspirin (Ecotrin Tab) 81 mg DAILY PO 12/15/16 09:00 01/14/17 08:59 12/17/16 07:56 81 MG Carvedilol (Coreg Tab) 6.25 mg BID PO 12/15/16 09:00 01/14/17 08:59 12/16/16 08:12 6.25 MG Levothyroxine Sodium (Synthroid Tab) 75 mcg DAILYBB PO 12/15/16 06:30 01/14/17 06:29 12/17/16 05:36 75 MCG Atorvastatin Calcium (Lipitor Tab) 5 mg QAM PO 12/15/16 09:00 01/14/17 08:59 12/17/16 07:56 5 MG Morphine Sulfate (MoRPHine SULFATE INJ) 4 mg Q4H PRN IV 12/16/16 16:45 12/30/16 16:44 12/16/16 19:30 4 MG Ondansetron HCl (Zofran Inj) 4 mg Q6H PRN IV 12/16/16 16:45 01/15/17 16:44 Metoprolol Tartrate (Lopressor Iv) 5 mg Q10M PRN IV 12/16/16 16:45 01/15/17 16:44 Potassium Chloride (Klor-Con Tab) 20 meq Q4H PO 12/17/16 07:15 12/17/16 11:16 12/17/16 07:54 20 MEQ Insulin Aspart (novoLOG ASPART) SLIDING SCALE ACHS SC 12/17/16 09:00 01/16/17 08:59 Glucose (Glucose 40% Gel) 15-30 GRAMS 15 GRAMS... UD PRN PO 12/17/16 08:30 01/16/17 08:29 Glucose (Glucose Chew Tab) 4-8 Tablets 4 Tabl... UD PRN PO 12/17/16 08:30 01/16/17 08:29 Dextrose (Dextrose 50% 50ML Syringe) 25-50ML OF 50% DW IV FOR... UD PRN IV 12/17/16 08:30 01/16/17 08:29 Glucagon (Glucagon Inj) 1 mg UD PRN SQ 12/17/16 08:30 01/16/17 08:29 Clopidogrel Bisulfate (plAVix TAB) 75 mg QAM PO 12/17/16 09:00 01/16/17 08:59 EZETIMIBE (Zetia Tab) 10 mg HS PO 12/17/16 21:00 01/16/17 20:59 Magnesium Sulfate 1 gm/Prmx 100 ml @ 100 mls/hr 0830 IV 12/17/16 08:30 12/17/16 09:29 Enoxaparin Sodium (Lovenox Inj) 40 mg DAILY SQ 12/18/16 09:00 01/17/17 08:59 Impression This is a 76-year-old female with 2 TIA events in the last month and bilateral carotid stenosis. Patient's event last month of right-hand numbness and right tongue numbness may be secondary to symptomatic carotid stenosis on the left of 75% but cannot rule out a cardioembolic source considering her history of frequent heart palpitations. Patient does NOT have known A. fib at this time. Patient's presenting symptom of brief visual loss in the right eye only, Tuesday through Tuesday, is consistent with a TIA secondary to critical stenosis of the right ICA 90%. No recent stroke on MRI but does have signs of mild chronic subcortical ischemic Dz on imaging. Other known stroke risk factors include dyslipidemia and mild hypertension. No residual neurological deficits on today's examination. Plan Continue medical treatment of aspirin 81 mg + Plavix + statin for stroke prevention in the setting of symptomatic carotid stenosis. Discussed that she will likely need endarterectomy of the left ICA stenosis of 75% in the near future. Avoid dehydration and hypotension as this could extend her stroke. blood pressure recommendations for the 1st month 150/90-130/80. After the first month, blood pressure recommendations 130/80-110/70 Follow-up PT/OT and speech recommendations for discharge planning Neurological recommendations for stroke risk factor modifications: Total cholesterol goal 100-200, and LDL goal less than 100 (at goal) Hemoglobin A1c goal less than 7 (at goal) Encourage regular cardiovascular exercise at least 30 minutes 3 times per week ( at goal) [facility] Follow-up in neurology clinic in 1 month after discharge. Highly recommend Holter monitor or cardiac event monitor as an outpatient to rule out A. fib as this would change the patient's medical management if she had it. No additional Neurology recommendations at this time. Thank you for allowing me to participate in this patient's care. If there is any questions or concerns, feel free to call/page me.
[2016-12-17] MEDS: CLOPIDOGREL BISULFATE 75 MG TAB PO SCH (08:56)
[2016-12-17] MEDS: INSULIN ASPART 100 UNITS/ML 3 ML PEN SC SCH ×2 (09:24→13:56)
--- NOTE | 2016-12-17 10:58 | Progress Note ---
Progress Note Date of Service: Dec 17, 2016. Subjective 76 yo f with BL ICAS, admitted with R eye amaurosis, POD #1 after R CEA d/t 90% stenosis, seen in f/u today. Pt states she had difficult evening d/t post op nausea. Per nurses, pt was very agitated as well. Pt admits pain in R neck incision, but states is controlled well with medications. Ate breakfast today without difficulty swallowing. States throat is sore, likely from intubation/ anesthesia. Admits fatigue. Denies other complaints, including MÁRQUEZ, vision disturbance, extremity weakness, difficulty speaking. Problem List Medical Problems: (1) Carotid stenosis Status: Acute (2) Flank pain Status: Acute (3) Stroke-like symptoms Status: Acute (4) Vision loss Status: Acute Objective Vital Signs Vital Signs Past 12 Hours Date Time Temp Pulse Resp B/P (MAP) Pulse Ox O2 Delivery O2 Flow Rate FiO2 12/17/16 08:05 99 Nasal Cannula 2.0 12/17/16 08:05 36.7 80 16 105/60 (75) 99 Nasal Cannula 2.0 106/57 (73) 12/17/16 06:00 62 13 122/65 100 94/37 12/17/16 05:02 78 14 102/53 100 106/44 12/17/16 04:02 74 10 91/45 100 92/41 12/17/16 04:00 36.4 12/17/16 04:00 100 Nasal Cannula 2.0 12/17/16 03:32 71 14 81/45 100 103/42 12/17/16 03:02 76 10 85/45 100 100/42 12/17/16 02:33 75 18 83/44 100 96/42 12/17/16 02:02 75 20 88/52 100 97/43 12/17/16 01:32 85 10 107/53 100 109/51 12/17/16 01:02 85 9 77/56 100 106/48 12/17/16 00:32 83 9 85/45 100 80/40 12/17/16 00:02 85 13 119/66 100 130/73 12/16/16 23:59 100 Nasal Cannula 2.0 12/16/16 23:32 79 10 71/36 (48) 100 12/16/16 23:30 79 8 73/37 (49) 100 12/16/16 23:22 80 13 86/47 100 12/16/16 23:12 82 10 72/32 (45) 100 12/16/16 23:02 82 14 86/52 100 84/37 12/16/16 23:02 82 10 84/37 (53) 100 12/16/16 23:00 82 12 88/39 (55) 100 Exam CONST: A&O x4, NAD, pale. Otherwise generally healthy appearing female for age NECK: R neck incision C/D/I with dermabond. Minimal edema. + local ecchymosis and tenderness. No hematoma noted. NEURO: no focal deficits, neg drift, no facial droop. Follows commands and conversant. Laboratory and Microbiology Results Past 24 Hours Test 12/16/16 15:55 12/16/16 17:20 12/16/16 18:35 12/16/16 21:04 Range/Units Kaolin Activated Coagulation Time 219 94-140 SECONDS Hemoglobin 7.5 10.8 12.0-16.0 g/dL Hematocrit 21.7 32.7 37-47 % Bedside Glucose 120 70-90 mg/dl Test 12/17/16 05:50 Range/Units White Blood Count 10.28 4.8-10.8 K/uL Red Blood Count 3.47 4.2-5.4 M/uL Hemoglobin 10.5 12.0-16.0 g/dL Hematocrit 31.0 37-47 % Mean Corpuscular Volume 89.3 80-100 fL Mean Corpuscular Hemoglobin 30.3 25-34 pg Mean Corpuscular Hemoglobin Concent 33.9 32-36 g/dl Platelet Count 204 130-400 K/uL Mean Platelet Volume 9.6 7.4-10.4 fL Neutrophils (%) (Auto) 88.7 % Lymphocytes (%) (Auto) 6.9 % Monocytes (%) (Auto) 4.2 % Eosinophils (%) (Auto) 0.0 % Basophils (%) (Auto) 0.0 % Neutrophils # (Auto) 9.12 1.4-6.5 K/uL Lymphocytes # (Auto) 0.71 1.2-3.4 K/uL Monocytes # (Auto) 0.43 0.11-0.59 K/uL Eosinophils # (Auto) 0.00 0-0.5 K/uL Basophils # (Auto) 0.00 0-0.2 K/uL RDW Standard Deviation 42.2 36.4-46.3 fL RDW Coefficient of Variation 13.0 11.5-14.5 % Immature Granulocyte % (Auto) 0.2 % Immature Granulocyte # (Auto) 0.02 0.00-0.02 K/uL Sodium Level 141 136-145 mmol/L Potassium Level 3.7 3.5-5.1 mmol/L Chloride Level 106 98-107 mmol/L Carbon Dioxide Level 25 21-32 mmol/L Anion Gap 10.0 3-11 mmol/L Blood Urea Nitrogen 15 7-18 mg/dl Creatinine 0.77 0.60-1.20 mg/dl Est Creatinine Clear Calc Drug Dose 51.8 ml/min Estimated GFR () 87.5 Estimated GFR (Non- 75.5 BUN/Creatinine Ratio 19.0 10-20 Bedside Glucose 204 70-90 mg/dl Random Glucose 193 70-99 mg/dl Calcium Level 8.2 8.5-10.1 mg/dl Magnesium Level 1.9 1.8-2.4 mg/dl Microbiology Results 12/16/16 MRSA DNA Surveillance Screen - Final, Complete Specimen Negative for MRSA by DNA Probe ASSESSMENT and PLAN: s/p R CEA RICAS 90% with R eye amaurosis LICAS 80% with TIA Pt doing well postop. OK for transfer to floor per Herman.
--- NOTE | 2016-12-17 11:08 | Progress Note ---
Subjective Date of Service: Dec 17, 2016. Subjective Pt evaluation today including: conversation w/ patient, conversation w/ family , physical exam, chart review, conversation w/ budget consultant, review of inpatient medication list Blood pressure was low overnight, now is improved, SBP is 110, patient is more awake and alert, and energetic, conversational, Had breakfast, mild right neck pain in the incision area, no other complaint Problem List Medical Problems: (1) Carotid stenosis Status: Acute (2) Flank pain Status: Acute (3) Stroke-like symptoms Status: Acute (4) Vision loss Status: Acute Review of Systems Constitutional: + weakness, + fatigue, No fever, No chills, No sweats, No weight loss, No problem reported Eyes: No worsening of vision, No eye pain, No redness, No discharge, No diplopia ENT: No hearing loss, No unusual epistaxis, No nasal symptoms, No sore throat, No tinnitus, No dental problems, No trouble swallowing Respiratory: No cough, No sputum, No wheezing, No shortness of breath, No dyspnea on exertion, No dyspnea at rest, No hemoptysis Cardiac: No chest pain, No orthopnea, No PND, No edema, No claudication, No palpitations Abdomen: No pain, No nausea, No vomiting, No diarrhea, No constipation Musculoskeletal: No joint pain, No muscle pain, No swelling, No calf pain Female : No dysuria, No urinary frequency, No hematuria, No incontinence, No abnormal vaginal bleeding, No vaginal discharge Neurologic: No memory loss, No paralysis, No weakness, No numbness/tingling, No vertigo, No balance problems Psychiatric: No depression symptoms, No anhedonism, No anxiety, No insomnia, No substance abuse Heme: No abnormal bleeding/bruising, No clotting problems, No swollen lymph nodes, No night sweats Endo: No fatigue, No excessive thirst, No excessive urination Skin: No rash, No itch, No new/changing skin lesions, No color change, No bleeding Objective Vital Signs Date Time Temp Pulse Resp B/P (MAP) Pulse Ox O2 Delivery O2 Flow Rate FiO2 12/17/16 08:05 99 Nasal Cannula 2.0 12/17/16 08:05 36.7 80 16 105/60 (75) 99 Nasal Cannula 2.0 106/57 (73) 12/17/16 08:00 Nasal Cannula 12/17/16 06:00 62 13 122/65 100 94/37 12/17/16 05:02 78 14 102/53 100 106/44 12/17/16 04:02 74 10 91/45 100 92/41 12/17/16 04:00 36.4 12/17/16 04:00 100 Nasal Cannula 2.0 12/17/16 03:32 71 14 81/45 100 103/42 12/17/16 03:02 76 10 85/45 100 100/42 12/17/16 02:33 75 18 83/44 100 96/42 12/17/16 02:02 75 20 88/52 100 97/43 12/17/16 01:32 85 10 107/53 100 109/51 12/17/16 01:02 85 9 77/56 100 106/48 12/17/16 00:32 83 9 85/45 100 80/40 12/17/16 00:02 85 13 119/66 100 130/73 12/16/16 23:59 100 Nasal Cannula 2.0 12/16/16 23:32 79 10 71/36 (48) 100 12/16/16 23:30 79 8 73/37 (49) 100 12/16/16 23:22 80 13 86/47 100 12/16/16 23:12 82 10 72/32 (45) 100 12/16/16 23:02 82 14 86/52 100 84/37 12/16/16 23:02 82 10 84/37 (53) 100 12/16/16 23:00 82 12 88/39 (55) 100 12/16/16 22:45 80 12 111/46 (67) 100 12/16/16 22:30 77 10 145/57 (86) 100 12/16/16 22:22 89 10 151/63 (92) 100 12/16/16 22:15 85 15 156/66 (96) 100 12/16/16 22:13 82 12 160/66 (97) 100 12/16/16 22:02 85 11 158/68 (98) 100 12/16/16 22:00 76 13 151/63 (92) 99 12/16/16 21:45 72 16 142/54 (83) 100 12/16/16 21:42 82 13 153/64 (93) 100 12/16/16 21:32 78 18 160/72 (101) 100 12/16/16 21:30 73 12 150/62 (91) 100 12/16/16 21:22 57 13 154/61 (92) 100 12/16/16 21:15 79 12 146/63 (90) 100 12/16/16 21:12 97 16 181/91 (121) 100 12/16/16 21:02 62 11 121/42 (68) 100 12/16/16 21:00 52 10 117/39 (65) 100 12/16/16 20:52 52 13 120/43 (68) 100 12/16/16 20:45 52 12 113/39 (63) 100 12/16/16 20:42 73 15 119/49 (72) 100 12/16/16 20:32 51 9 102/32 (55) 100 12/16/16 20:30 61 13 118/45 (69) 100 12/16/16 20:22 48 13 105/36 (59) 100 12/16/16 20:15 52 12 107/37 (60) 100 12/16/16 20:12 52 12 102/35 (57) 100 12/16/16 20:02 50 13 94/33 (53) 100 12/16/16 20:00 56 14 99/35 (56) 95 12/16/16 20:00 100 Nasal Cannula 2.0 12/16/16 19:52 51 14 95/30 (51) 100 12/16/16 19:45 53 9 95/31 (52) 99 12/16/16 19:42 60 18 98/35 (56) 98 12/16/16 19:32 57 13 89/63 (72) 96 12/16/16 19:30 59 20 103/38 (59) 91 12/16/16 19:22 52 9 97/34 (55) 95 12/16/16 19:15 57 15 102/37 (58) 94 12/16/16 19:12 58 16 101/37 (58) 97 12/16/16 19:02 55 11 97/35 (55) 94 12/16/16 19:00 57 14 105/38 (60) 95 12/16/16 18:52 54 15 105/39 (61) 95 12/16/16 18:45 58 13 107/40 (62) 98 12/16/16 18:42 57 14 108/41 (63) 97 12/16/16 18:32 55 14 110/42 (64) 97 12/16/16 18:31 59 14 123/50 (74) 97 12/16/16 18:30 36.7 58 18 124/47 (72) 98 12/16/16 17:44 56 10 99 12/16/16 17:44 56 10 12/16/16 17:42 102/48 12/16/16 17:39 59 20 99 12/16/16 17:39 36.3 61 16 102/48 99 Mask 2 108/40 12/16/16 17:39 59 20 12/16/16 17:38 61 15 12/16/16 17:38 61 15 99 12/16/16 17:37 102/52 12/16/16 17:33 61 18 100 12/16/16 17:33 61 18 12/16/16 17:32 115/56 12/16/16 17:32 115/56 12/16/16 17:31 63 16 12/16/16 17:31 63 16 100 12/16/16 17:31 63 16 100 12/16/16 17:31 63 16 12/16/16 17:27 115/56 12/16/16 17:27 115/56 12/16/16 17:26 61 16 100 12/16/16 17:26 61 16 12/16/16 17:26 61 16 100 12/16/16 17:26 61 16 12/16/16 17:23 66 19 112/57 100 Mask 10 12/16/16 17:22 117/59 12/16/16 17:22 117/59 12/16/16 17:21 63 18 12/16/16 17:21 63 18 100 12/16/16 17:21 63 18 100 12/16/16 17:21 63 18 12/16/16 17:17 113/56 12/16/16 17:17 113/56 12/16/16 17:16 62 14 12/16/16 17:16 62 14 100 12/16/16 17:16 62 14 100 12/16/16 17:16 62 14 12/16/16 17:13 112/57 12/16/16 17:13 112/57 12/16/16 12:15 Room Air 12/16/16 11:20 36.9 64 16 123/69 (87) 99 Physical Exam General Appearance: WD/WN, no apparent distress, + thin, + pertinent finding ( tired looking) Eyes: normal inspection, PERRL, EOMI, sclerae normal ENT: normal ENT inspection, hearing grossly normal, pharynx normal Neck: supple, no adenopathy, thyroid normal, no JVD, no carotid bruits, trachea midline, + pertinent finding (right neck incision looks clean) Respiratory/Chest: chest non-tender, normal breath sounds, no respiratory distress, no accessory muscle use, + decreased breath sounds Cardiovascular: regular rate, rhythm, no edema, no gallop, no JVD, no murmur Abdomen: normal bowel sounds, non tender, soft, no organomegaly, no pulsatile mass Extremities: normal range of motion, non-tender, normal inspection, no pedal edema, no calf tenderness, normal capillary refill, pelvis stable Neurologic/Psychiatric: 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, no motor/sensory deficits, alert, normal mood/affect, oriented x 3 Skin: normal color, warm/dry, no rash Lymphatic: no adenopathy Laboratory Results Last 24 Hours Test 12/16/16 15:55 12/16/16 17:20 12/16/16 18:35 12/16/16 21:04 Kaolin Activated Coagulation Time 219 SECONDS Hemoglobin 7.5 g/dL 10.8 g/dL Hematocrit 21.7 % 32.7 % Bedside Glucose 120 mg/dl Test 12/17/16 05:50 White Blood Count 10.28 K/uL Red Blood Count 3.47 M/uL Hemoglobin 10.5 g/dL Hematocrit 31.0 % Mean Corpuscular Volume 89.3 fL Mean Corpuscular Hemoglobin 30.3 pg Mean Corpuscular Hemoglobin Concent 33.9 g/dl Platelet Count 204 K/uL Mean Platelet Volume 9.6 fL Neutrophils (%) (Auto) 88.7 % Lymphocytes (%) (Auto) 6.9 % Monocytes (%) (Auto) 4.2 % Eosinophils (%) (Auto) 0.0 % Basophils (%) (Auto) 0.0 % Neutrophils # (Auto) 9.12 K/uL Lymphocytes # (Auto) 0.71 K/uL Monocytes # (Auto) 0.43 K/uL Eosinophils # (Auto) 0.00 K/uL Basophils # (Auto) 0.00 K/uL RDW Standard Deviation 42.2 fL RDW Coefficient of Variation 13.0 % Immature Granulocyte % (Auto) 0.2 % Immature Granulocyte # (Auto) 0.02 K/uL Sodium Level 141 mmol/L Potassium Level 3.7 mmol/L Chloride Level 106 mmol/L Carbon Dioxide Level 25 mmol/L Anion Gap 10.0 mmol/L Blood Urea Nitrogen 15 mg/dl Creatinine 0.77 mg/dl Est Creatinine Clear Calc Drug Dose 51.8 ml/min Estimated GFR () 87.5 Estimated GFR (Non- 75.5 BUN/Creatinine Ratio 19.0 Bedside Glucose 204 mg/dl Random Glucose 193 mg/dl Calcium Level 8.2 mg/dl Magnesium Level 1.9 mg/dl Assessment and Plan 76 y/o F with possible TIA with developed R sided numbness limited to her R arm , R tongue and R LE on 11/24 and was admitted with a diagnosis of a TIA. B/L carotid stenosis Severe right internal carotid artery stenosis Vascular surgeon input appreciated, s/p Right Carotid Endarterectomy with patch angioplasty on 12/16/2016, RICAS 90% with R eye amaurosis LICAS 80% with TIA POD 1 , doing well postop. Possible TIA with developed intermittent blurred vision in her R eye over the past 2-3 day prior to admission Brain MRI has no acute CVA R arm, R tongue and R LE numbness in 11/2016 B/L carotid stenosis , see above , Pt recently underwent a carotid US revealing 75% stenosis on R and 90% on L hx of , breast CA, Hypothyroidism, HPL, chemo-related cardiomyopathy . Was on Heparin per request of vascular pending evaluation for intervention, post order will be per vascular surgeon Resume aspirin, Plavix, and statin Okay to MedSur floor Hypothyroidism - cont Synthroid Full code Discussed with patient and family about a care plan /answer all questions Has request PT OT SCD for DVT prophylaxis Continued [facility] stay due to: multiple IV medications needed Discharge planning: home
[2016-12-17] MEDS: CARVEDILOL 6.25 MG TAB PO SCH ×2 (13:57→20:27)
[2016-12-17] MEDS ORDERED: NURSING VERBAL MED ORDER ONE ×2 (14:00→16:45)
[2016-12-17] MEDS ORDERED: EZETIMIBE 10MG TAB PO SCH (21:00)
[2016-12-18] MEDS: LEVOTHYROXINE 75 MCG TAB PO SCH (05:59)
[2016-12-18 07:35] VITALS: BP 104/68; PULSE 73; TEMP 36.8; O2SAT 98
[2016-12-18 07:38] LABS: CALCIUM 8.4 mg/dl (8.5-10.1); CREATININE 0.68 mg/dl (0.60-1.20); MAGNESIUM 2.4 mg/dl (1.8-2.4); POTASSIUM 3.9 mmol/L (3.5-5.1)
--- NOTE | 2016-12-18 08:23 | Progress Note ---
Progress Note Date of Service: Dec 18, 2016. Subjective No complaints. No swallowing difficulty. No problems with speech Problem List Medical Problems: (1) Carotid stenosis Status: Acute (2) Flank pain Status: Acute (3) Stroke-like symptoms Status: Acute (4) Vision loss Status: Acute Objective Vital Signs Vital Signs Past 12 Hours Date Time Temp Pulse Resp B/P (MAP) Pulse Ox O2 Delivery O2 Flow Rate FiO2 12/18/16 07:35 36.8 73 15 104/68 (80) 98 Room Air 12/18/16 00:00 Room Air 12/17/16 23:17 36.9 73 14 109/56 (73) 98 Room Air 12/17/16 21:06 80 94/54 (67) 12/17/16 20:24 85 85/51 (62) 98 Exam Awake and alert Incision dry and clean. Minimal edema No neuro deficits. Laboratory and Microbiology Results Past 24 Hours Test 12/17/16 11:37 12/18/16 06:40 Range/Units Bedside Glucose 98 70-90 mg/dl Sodium Level 146 136-145 mmol/L Potassium Level 3.9 3.5-5.1 mmol/L Chloride Level 111 98-107 mmol/L Carbon Dioxide Level 28 21-32 mmol/L Anion Gap 7.0 3-11 mmol/L Blood Urea Nitrogen 14 7-18 mg/dl Creatinine 0.68 0.60-1.20 mg/dl Est Creatinine Clear Calc Drug Dose 58.7 ml/min Estimated GFR () 99.2 Estimated GFR (Non- 85.6 BUN/Creatinine Ratio 20.0 10-20 Random Glucose 86 70-99 mg/dl Calcium Level 8.4 8.5-10.1 mg/dl Magnesium Level 2.4 1.8-2.4 mg/dl Imp; Post right CEA. Plan: Doing well D/C today
--- NOTE | 2016-12-18 08:27 | Discharge Instructions ---
Discharge Instructions Date of Service Dec 18, 2016. Visit Reason for Visit: Carotid Stenosis, Bilateral, Tia Discharge Discharge Diagnosis / Problem: Right internal carotid artery stenosis with transient ischemic attack, RCEA Discharge Goals Goal(s): Therapeutic intervention Activity Recommendations Activity Limitations: per Instructions/Follow-up section Lifting Limitations: no more than 10 pounds Exercise/Sports Limitations: gradually increase as tolerated Shower/Bathe: no limitations Driving or Machine Use: resume 3 days after discharge Anesthesia . Post Anesthesia Instructions: If you have had General Anesthesia or IV Sedation: * Do not drive today. * Resume driving when surgeon permits. * Do not make important decisions or sign legal documents today. * Call surgeon for: 1. Temperature elevations greater than 101 degrees F. 2. Uncontrollable pain. 3. Excessive bleeding. 4. Persistent nausea and vomiting. 5. Medication intolerance (nausea, vomiting or rash). * For nausea and vomiting use only clear liquids such as: tea, soda, bouillon until nausea subsides, then gradually increase diet as tolerated. * If you have any concerns or questions, call your surgeon's office. If physician is unavailable and it is an emergency, call 911 or go to the nearest emergency room. . Instructions / Follow-Up Instructions / Follow-Up SPECIAL CARE INSTRUCTIONS: Medications: * Continue to take Aspirin as directed. Incision Care: * You may shower, but do not rub incision. You may let the warm soapy water run over it. Be sure to dry the incision well after bathing. * Do not shave directly over the incision until it is healed. * DO NOT IMMERSE THE INCISION IN A TUB/POOL/etc. UNTIL HEALED. Restrictions: * Do not drive for at least one week or if you are still taking any narcotic pain medication. * Do not lift anything heavier than a gallon of milk for one week after going home. Possible Complications: * Numbness - It is normal to have some numbness around the incision. Numbness can extend beyond the incision to areas of the neck, ear and face. The numbness is due to bruising of nerves during the surgery and will gradually improve over a period of months. * Hoarseness/Difficulty Speaking and Swallowing - The bruising of nerves in the neck can also cause a hoarse voice, difficulty speaking or swallowing. This may improve over time, HOWEVER, if it continues for more than a few days please contact our office ([phone]). * Excessive Swelling - There will be some swelling immediately after surgery which usually resolves within one week. If you notice that the swelling is getting worse, notify your surgeon ([phone]). * Drainage/Bleeding - If there is any drainage or bleeding, it should be a very small amount (less than a teaspoon per day). If you have excessive bleeding or drainage from the incision, call your surgeon ([phone]) right away. ACTIVATION OF EMERGENCY MEDICAL SYSTEM: Call 911, immediately, if you experience any of the following: Warning Signs and Symptoms of Stroke: * Sudden numbness or weakness of the face, arm or leg, especially on one side of the body * Sudden confusion, trouble speaking or understanding * Sudden trouble seeing in one or both eyes * Sudden trouble walking, dizziness, loss of balance or coordination * Sudden severe headache with no cause Do not delay calling 911 if you experience any warning signs or symptoms of a stroke. Delay in seeking medical attention may affect what treatments can be given to you. Risk Factors for Stroke: You can reduce your chances of stroke by working with your medical provider to adopt a healthy lifestyle. Some specific ways to lower your chance of stroke are: * If you are a smoker, now is the time to stop smoking cigarettes * If you are diabetic, improve the control of your blood sugars * Avoid excessive amounts of alcohol * Control high blood pressure * Lose weight if you are overweight * Be sure to lead an active lifestyle * Eat a healthy diet low in salt, cholesterol and fat You should know about other risk factors for stroke that you are unable to control. These include: * Age 55 years or older * Male gender * Certain racial groups: , or / * Family History of Stroke, Mini stroke or Heart Attack * Sickle Cell Disease You will be receiving a call from the Vascular Surgery Nurse after you are discharged. FOLLOW UP VISIT: It is important for you to keep your follow up appointments with your medical provider. Keep any scheduled doctor appointments. Diet Recommendations Recommended Home Diet: resume previous diet Procedures Procedures Performed: Right Carotid Endarterectomy with patch angioplasty Pending Studies Studies pending at discharge: no Medical Emergencies . Who to Call and When: Medical Emergencies: If at any time you feel your situation is an emergency, please call 911 immediately. . Non-Emergent Contact Non-Emergency issues call your: Surgeon . . "Provider Documentation" section prepared by Thom Sutton. .
[2016-12-18] MEDS ORDERED: OXYC-57 PO (08:36)
--- NOTE | 2016-12-18 08:53 | Discharge Instructions ---
Discharge Instructions Date of Service Dec 18, 2016. Admission Reason for Admission: Carotid Stenosis, Bilateral, Tia Discharge Discharge Diagnosis / Problem: B/L carotid stenosis , possible TIA Discharge Goals Goal(s): Decrease discomfort, Improve function, Increase independence, Improve disease control, Improve nutritional status, Learn about illness, Diagnostic testing, Therapeutic intervention, Prevent Disease Progression, Specific goals Activity Recommendations Activity Limitations: resume your previous activity (fall precaution) . Instructions / Follow-Up Instructions / Follow-Up you have possible TIA you have bilateral carotid artery stenosis you have Severe right internal carotid artery stenosis s/p Right Carotid Endarterectomy with patch angioplasty on 12/16/2016, you need to follow up with vascular surgeon as instructed you need to follow up with neurologist as instructed your blood pressure was low at 90's last evening, now is good, check blood pressure 2 times a day, call pcp if less than 90, or bigger than 180 your sodium is mild elevated today, you need to have plenty water intake I Rx labs checking on Tuesday , please do it and report result to pcp - you need to follow up with your primary care physician in 1 week, - take medication as instructed, never overdose or any misuse, or take with alcohol, because misuse of medicine may cause organ damage or , call your primary care physician if have questions of medicaitons. - call your primary care physician OR go to local emergency room if has any fever/chill, chest pain, shortness of breathing, nausea/vomiting/abdominal pain , facial droop/slurry speech/local weakness, or if has any questions. - fall precaution - diet as instructed - you need to follow up with your subspecialist - you should understand that it is important to follow up the above instruction , and "not following the above instruction" may cause delayed or missed care of your medical conditions which may cause permanent organ damage and even . Current Hospital Diet Patient's current hospital diet: AHA Diet (Heart Healthy), Vegetarian Diet Discharge Diet Recommended Diet: AHA Diet (Heart Healthy) Procedures Procedures Performed: Right Carotid Endarterectomy with patch angioplasty Pending Studies Studies pending at discharge: no Laboratory Results Lipid Panel Test 12/03/16 06:09 Range/Units Triglycerides Level 117 0-150 mg/dl Cholesterol Level 136 0-200 mg/dl HDL Cholesterol 42 mg/dl Cholesterol/HDL Ratio 3.2 LDL Cholesterol, Calculated 71 mg/dl Medical Emergencies . Who to Call and When: Medical Emergencies: If at any time you feel your situation is an emergency, please call 911 immediately. . Non-Emergent Contact Non-Emergency issues call your: Primary Care Provider, Oncologist, Surgeon Call Non-Emergent contact if: you have a fever . . "Provider Documentation" section prepared by Jose Carlos Rousseau. . VTE Core Measure Inpt VTE Proph given/why not?: Other Anticoagulation
[2016-12-18] MEDS: CARVEDILOL 6.25 MG TAB PO SCH (09:00)
[2016-12-18] MEDS ORDERED: ENOXAPARIN 40 MG/0.4 ML SYR SQ SCH (09:00)
--- NOTE | 2016-12-18 09:22 | Discharge Summary ---
Discharge Summary Date of Service Dec 18, 2016. Discharge Summary Admission Date: Dec 14, 2016 at 21:11 Discharge Date: Dec 18, 2016 Discharge Disposition: Home Principal Diagnosis: TIA Problems/Secondary Diagnoses: bilateral carotid artery stenosis Severe right internal carotid artery stenosis s/p Right Carotid Endarterectomy with patch angioplasty on 12/16/2016, hypernatremia Immunizations: History of Tetanus Vaccine?: Unknown History of Pneumococcal: No History of Hepatitis B Vaccine: No Procedures: bilateral carotid artery stenosis Consultations: Vascular surgeon, neurologist, Medication Reconciliation New Medications: Oxycodone/Acetaminophen 5MG/325MG (Percocet 5MG/325MG) Tab 1 TABLET PO Q6H PRN for Pain, #20 TAB Continued Medications: Aspirin (Aspirin Ec) 81 Mg Tab 81 MG PO DAILY Atorvastatin (Atorvastatin Calcium) 10 Mg Tab 0.5 TAB PO DAILY Carvedilol (Carvedilol) 6.25 Mg Tab 6.25 MG PO BID Clopidogrel Bisulfate (Clopidogrel) 75 Mg Tab 75 MG PO QAM, #30 TAB 3 Refills Coenzyme Q10 (Ubidecarenone) (Co Q-10) 150 Mg Cap 200 MG PO BID Ezetimibe (Zetia) 10 Mg Tab 10 MG PO HS, TAB Flaxseed (Linseed) (Flax Seed Oil) 1 Cap Cap 1000 MG PO TID Levothyroxine Sodium (Synthroid) 75 Mcg Tab 1 TAB PO DAILY BRAND NAME Discharge Exam Sitting up in chair, eating breakfast first, reported feeling much better, has been up and walk in the room, no other complaint, denied dizziness ,sob, or chest pain Review of Systems: Constitutional: No fever, No chills, No sweats, No weight loss, No weakness , No fatigue, No problem reported Eyes: No worsening of vision, No eye pain, No redness, No discharge, No diplopia, No problem reported ENT: No hearing loss, No unusual epistaxis, No nasal symptoms, No sore throat, No tinnitus, No dental problems, No trouble swallowing, No problem reported Respiratory: No cough, No sputum, No wheezing, No shortness of breath, No dyspnea on exertion, No dyspnea at rest, No hemoptysis, No problem reported Cardiovascular: No chest pain, No orthopnea, No PND, No edema, No claudication, No palpitations, No problem reported Abdomen: No pain, No nausea, No vomiting, No diarrhea, No constipation, No GI bleeding, No problem reported Musculoskeletal: No joint pain, No muscle pain, No swelling, No calf pain, No problem reported Genitourinary - Female: No dysuria, No urinary frequency, No urinary urgency , No urinary incontinence, No urinary retention, No hematuria, No dysmenorrhea, No menorrhagia, No metrorrhagia, No rash, No vaginal bleeding, No vaginal discharge, No vaginal itching, No vulvodynia, No , No problem reported Neurologic: No memory loss, No paralysis, No weakness, No numbness/tingling , No vertigo, No balance problems, No problem reported Psychiatric: No depression symptoms, No anhedonism, No anxiety, No insomnia , No substance abuse, No problem reported Endocrine: No fatigue, No excessive thirst, No excessive urination, No problem reported Hematologic / Lymphatic: No abnormal bleeding/bruising, No clotting problems , No swollen lymph nodes, No night sweats, No problem reported Integumentary: No rash, No itch, No new/changing skin lesions, No color change, No bleeding, No problem reported Physical Exam: General Appearance: WD/WN, no apparent distress, + thin, + pertinent finding (look like in her baseline) Eyes: normal inspection, PERRL ENT: normal ENT inspection, hearing grossly normal Neck: supple, no adenopathy Respiratory/Chest: chest non-tender, no respiratory distress, no accessory muscle use, + decreased breath sounds Cardiovascular: regular rate, rhythm, no edema, no gallop Abdomen / GI: normal bowel sounds, non tender, soft, no organomegaly, no pulsatile mass Extremities: normal inspection, no calf tenderness, normal capillary refill Neurologic/Psychiatric: 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 B/L carotid stenosis Severe right internal carotid artery stenosis Vascular surgeon input appreciated, s/p Right Carotid Endarterectomy with patch angioplasty on 12/16/2016, RICAS 90% with R eye amaurosis LICAS 80% with TIA POD 2, doing well postop. Vascular surgeon discharge patient with the instructions, has advised patient to follow-up with the introduction per vascular surgeon Possible TIA with developed intermittent blurred vision in her R eye over the past 2-3 day prior to admission Brain MRI has no acute CVA R arm, R tongue and R LE numbness in 11/2016 B/L carotid stenosis , see above , Pt recently underwent a carotid US revealing 75% stenosis on R and 90% on L Neurologist to see patient Other known stroke risk factors include dyslipidemia and mild hypertension. Per recommend of neurologist , Continue medical treatment of aspirin 81 mg + Plavix + statin for stroke prevention in the setting of symptomatic carotid stenosis. Neurologist has discussed that she will likely need endarterectomy of the left ICA stenosis of 75% in the near future. Avoid dehydration and hypotension as this could extend her stroke. blood pressure recommendations for the 1st month 150/90-130/80. After the first month, blood pressure recommendations 130/80-110/70 Follow-up PT/OT and speech recommendations for discharge planning Per neurologist , neurological recommendations for stroke risk factor modifications: Total cholesterol goal 100-200, and LDL goal less than 100 (at goal) Hemoglobin A1c goal less than 7 (at goal) Encourage regular cardiovascular exercise at least 30 minutes 3 times per week ( at goal) TIA Hospital Follow-up in neurology clinic in 1 month after discharge. Highly recommend Holter monitor or cardiac event monitor as an outpatient to rule out A. fib as this would change the patient's medical management if she had it. PCP please follow-up this, please order cardiac event monitor for patient. hx of , breast CA, Hypothyroidism, HPL, chemo-related cardiomyopathy . Hypothyroidism - cont Synthroid Mild hyponatremia in the morning lab, I have ordered for Tuesday morning and report and result to PCP, PCP please follow-up this Upon discharge today, with present of nurse, I feel is a little reluctant to release patient today cause she was having mild hypotension last evening and mild hypernatremia today, However she really want to go home, I advised her to call PCP if have any questions, and doing lab on Tuesday, check blood pressure 2 time a day Instructions / Follow-Up you have possible TIA you have bilateral carotid artery stenosis you have Severe right internal carotid artery stenosis s/p Right Carotid Endarterectomy with patch angioplasty on 12/16/2016, you need to follow up with vascular surgeon as instructed you need to follow up with neurologist as instructed your blood pressure was low at 90's last evening, now is good, check blood pressure 2 times a day, call pcp if less than 90, or bigger than 180 your sodium is mild elevated today, you need to have plenty water intake I Rx labs checking on Tuesday , please do it and report result to pcp - you need to follow up with your primary care physician in 1 week, - take medication as instructed, never overdose or any misuse, or take with alcohol, because misuse of medicine may cause organ damage or , call your primary care physician if have questions of medicaitons. - call your primary care physician OR go to local emergency room if has any fever/chill, chest pain, shortness of breathing, nausea/vomiting/abdominal pain , facial droop/slurry speech/local weakness, or if has any questions. - fall precaution - diet as instructed - you need to follow up with your subspecialist - you should understand that it is important to follow up the above instruction , and "not following the above instruction" may cause delayed or missed care of your medical conditions which may cause permanent organ damage and even . Total Time Spent: Greater than 30 minutes This includes examination of the patient, discharge planning, medication reconciliation, and communication with other providers. Discharge Instructions Please refer to the electronic Patient Visit Report (Discharge Instructions) for additional information. Additional Copies To America Reynoso D.O.; Dheeraj Cancino M.D.; Thom Sutton M.D.
[2016-12-18] MEDS: ATORVASTATIN 10 MG TAB PO SCH (10:12)
[2016-12-18] MEDS: ASPIRIN 81 MG ECTAB PO SCH (10:12)
[2016-12-18] MEDS: CLOPIDOGREL BISULFATE 75 MG TAB PO SCH (10:13)
[2016-12-18 10:23] VITALS: BP 104/68; PULSE 73; TEMP 36.8; O2SAT 98
== END 2016-12-18 11:27 | disposition home or self-care (01) | DRG 38 ==
LOC: C.EDB 16:28 → C.MED 21:11 → ENRESERV 21:37 → CANRESERV 22:05 → ENRESERV 12-16 17:34 → C.MSICU 12-16 18:28 → ENRESERV 12-17 10:11 → C.MSN 12-17 12:22
PROVIDERS: ADMIT Internal Medicine; ATTEND Hospitalist
PROC: 03CK0ZZ Extirpation of Matter from Right Internal Carotid Artery, Open Approach (ICD-10-PCS; principal; 2016-12-16 11:45)
PROC: 03UK0JZ Supplement Right Internal Carotid Artery with Synthetic Substitute, Open Approach (ICD-10-PCS; principal; 2016-12-16 11:45)
DX: I65.23 Occlusion and stenosis of bilateral carotid arteries (principal); E87.0 Hyperosmolality and hypernatremia; Z68.1 Body mass index [BMI] 19.9 or less, adult; I11.9 Hypertensive heart disease without heart failure; E78.5 Hyperlipidemia, unspecified; E03.9 Hypothyroidism, unspecified; Z79.899 Other long term (current) drug therapy; Z79.82 Long term (current) use of aspirin; Z86.73 Personal history of transient ischemic attack (TIA), and cerebral infarction without residual deficits; Z85.3 Personal history of malignant neoplasm of breast; Z87.891 Personal history of nicotine dependence

== ENCOUNTER → 2016-12-27 | Outpatient (CLI) | payer BC ==
[~2016-12-27] MED LIST changes: +ASPI81TA28 PO; +EZET10TA63 PO; +OXYC-57 PO; -TRAM-10 PO; -VALS-56 PO
[2016-12-27 10:21] LABS: BLOOD UREA NITROGEN 17 mg/dl (7-18); BUN/CREATININE RATIO 22.9 (10-20); CALCIUM 8.9 mg/dl (8.5-10.1); CARBON DIOXIDE 27 mmol/L (21-32); CHLORIDE 108 mmol/L (98-107); CREATININE 0.74 mg/dl (0.60-1.20); GLUCOSE 90 mg/dl (70-99); MAGNESIUM 2.6 mg/dl (1.8-2.4); POTASSIUM 4.1 mmol/L (3.5-5.1); SODIUM 144 mmol/L (136-145)
== END | disposition home or self-care (01) ==
LOC: C.LABFOXMH 09:10
PROVIDERS: ATTEND Internal Medicine
DX: I10 Essential (primary) hypertension (principal)

== ENCOUNTER → 2017-02-01 | Outpatient (CLI) | payer BC ==
[2017-02-01 10:10] LABS: ALT/SGPT 22 U/L (12-78); AST/SGOT 16 U/L (15-37); BLOOD UREA NITROGEN 15 mg/dl (7-18); BUN/CREATININE RATIO 19.9 (10-20); CARBON DIOXIDE 29 mmol/L (21-32); CHLORIDE 110 mmol/L (98-107); CHOLESTEROL 116 mg/dl (0-200); CREATININE 0.76 mg/dl (0.60-1.20); GLUCOSE 83 mg/dl (70-99); POTASSIUM 4.1 mmol/L (3.5-5.1); SODIUM 144 mmol/L (136-145)
[2017-02-01 10:15] LABS: ALB/GLOB RATIO 1.2 (0.9-2); ALKALINE PHOSPHATASE 76 U/L (45-117); CHOLESTEROL/HDL RATIO 2.8; HDL CHOLESTEROL 41 mg/dl; LDL CHOLESTEROL CALCULATED 56 mg/dl; TRIGLYCERIDES 93 mg/dl (0-150); VERY LOW DENSITY LIPOPROT CALC 19 mg/dl
== END ==
LOC: C.LABFOXMH 09:24
PROVIDERS: ATTEND Internal Medicine
DX: E78.00 Pure hypercholesterolemia, unspecified (principal)

== ENCOUNTER → 2017-03-17 | Outpatient (CLI) | payer BC ==
--- NOTE | 2017-03-17 12:24 | DIAGNOSTIC IMAGING REPORT ---
SOFT TISS HEAD/NECK-THYROID CLINICAL HISTORY: 76 years-old Female with RT POSTERIOR CERIVAL NODE,HEADACHE. Patient reports her physician felt a palpable abnormality of the right neck. COMPARISON: CT neck 11/25/2016 TECHNIQUE: Multiple real time sonographic images of the neck soft tissues were obtained accessing gregg scale appearance and color doppler flow. FINDINGS: Within the area of interest within the posterior lateral aspect of the right neck, no focal mass, collection or focal tissue abnormality is identified to correlate with the reported symptomatology. IMPRESSION: No focal abnormality within the posterior lateral aspect of the right neck. The above report was generated using voice recognition software. It may contain grammatical, syntax or spelling errors. Electronically signed by: Salvador Solis M.D. 03/17/2017 12:22 PM Dictated Date/Time: 03/17/2017 12:20 PM
== END | disposition home or self-care (01) ==
LOC: C.ULTR 11:53
PROVIDERS: ATTEND Internal Medicine Hospice and Palliative Medicine
DX: R51 Headache (principal)

== ENCOUNTER → 2017-06-09 | Outpatient (CLI) | payer BC ==
[2017-06-09 09:06] LABS: ALT/SGPT 24 U/L (12-78); BLOOD UREA NITROGEN 21 mg/dl (7-18); BUN/CREATININE RATIO 25.9 (10-20); CALCIUM 9.4 mg/dl (8.5-10.1); CARBON DIOXIDE 32 mmol/L (21-32); CHLORIDE 104 mmol/L (98-107); CHOLESTEROL 145 mg/dl (0-200); GLUCOSE 89 mg/dl (70-99); POTASSIUM 4.1 mmol/L (3.5-5.1); SODIUM 142 mmol/L (136-145); TRIGLYCERIDES 77 mg/dl (0-150); VERY LOW DENSITY LIPOPROT CALC 15 mg/dl
[2017-06-09 09:09] LABS: ALB/GLOB RATIO 1.1 (0.9-2); ALKALINE PHOSPHATASE 77 U/L (45-117); AST/SGOT 21 U/L (15-37); CHOLESTEROL/HDL RATIO 2.6; HDL CHOLESTEROL 55 mg/dl; LDL CHOLESTEROL CALCULATED 75 mg/dl
== END | disposition home or self-care (01) ==
LOC: C.LABFOXMH 08:40
PROVIDERS: ATTEND Internal Medicine Hospice and Palliative Medicine
DX: E78.00 Pure hypercholesterolemia, unspecified (principal)

== ENCOUNTER → 2017-09-29 | Outpatient (CLI) | payer BC ==
[~2017-09-29] MED LIST changes: -OXYC-57 PO
== END ==
LOC: C.MAMM 08:00
PROVIDERS: ATTEND Internal Medicine Hospice and Palliative Medicine
DX: M85.89 Other specified disorders of bone density and structure, multiple sites (principal); M81.0 Age-related osteoporosis without current pathological fracture

== ENCOUNTER → 2017-10-04 | Outpatient (CLI) | payer BC ==
[2017-10-04 09:40] LABS: BLOOD UREA NITROGEN 25 mg/dl (7-18); CREATININE 0.74 mg/dl (0.60-1.20); GLUCOSE 87 mg/dl (70-99); SODIUM 139 mmol/L (136-145)
[2017-10-04 09:41] LABS: ALBUMIN 3.7 gm/dl (3.4-5.0); ALT/SGPT 28 U/L (12-78); AST/SGOT 18 U/L (15-37); CALCIUM 9.1 mg/dl (8.5-10.1); CARBON DIOXIDE 30 mmol/L (21-32); POTASSIUM 3.9 mmol/L (3.5-5.1)
[2017-10-04 09:51] LABS: ALKALINE PHOSPHATASE 68 U/L (45-117); CHOLESTEROL 117 mg/dl (0-200); LDL CHOLESTEROL CALCULATED 52 mg/dl
== END ==
LOC: C.LABFOXMH 08:47
PROVIDERS: ATTEND Internal Medicine
DX: E78.00 Pure hypercholesterolemia, unspecified (principal); E03.9 Hypothyroidism, unspecified

== ENCOUNTER → 2018-02-13 | Outpatient (CLI) | payer BC | END | disposition home or self-care (01) | LOC: C.LABFOXMH 08:22 | PROVIDERS: ATTEND Internal Medicine | DX: E78.00 Pure hypercholesterolemia, unspecified (principal); E03.9 Hypothyroidism, unspecified ==

== ENCOUNTER 2024-08-01 16:30 | Inpatient (IN) ==
--- NOTE | 2024-08-01 17:08 | Emergency Department Note ---
Impression & Plan Closed fracture of superior pubic ramus, Closed fracture of inferior pubic ramus, Hematoma of left hip, Fall ED Provider Note Diagnosis: Superior and inferior pubic rami fracture, left hip hematoma Disposition: Admission CHIEF COMPLAINT: Fall HPI: Patient is an 84-year-old female presenting status post mechanical fall. Patient states she was in her home slipped on water falling onto her left hip. Patient denies hitting her head. Patient denies any pain head neck or back. Patient just points to the left hip region. Patient denies any syncope or near- syncope. Patient denies chest pain or shortness of breath. Patient states only blood thinner is baby aspirin. PAST MEDICAL HISTORY: See Below PAST SURGICAL HISTORY: See Below SOCIAL HISTORY: See Below HOME MEDICATIONS: See Below ALLERGIES: See Below VITALS: See Below PHYSICAL EXAMINATION: GENERAL: Well appearing, well nourished, NAD, non-toxic. EYE EXAM: Normal conjunctiva. OROPHARYNX: Moist mucus membranes. Grossly normal dentition. NECK: Supple, nontender LUNGS: Clear to auscultation. Normal chest wall mechanics. HEART: NSR ABDOMEN: Abdomen soft, non-tender, normo-active bowel sounds, no masses, no rebound or guarding BACK: No CVA TTP. SKIN: No rashes and no bruising. UPPER EXTREMITIES: Upper extremities are grossly normal LOWER EXTREMITIES: Tenderness left hip joint, hematoma present, 2+ dorsal pedis pulse, no tenderness over knee or ankle joint intact sensation all 5 digits of the left foot NEURO EXAM: A&O x3,, normal speech, moves all 4 extremities PSYCH: Cooperative MEDICAL DECISION MAKING: History obtained from: Patient, ER Course: Patient is a 83-year-old female presenting status post mechanical fall. Patient did not have syncope or near syncope. Patient has no chest pain or shortness of breath. Patient did not hit her head or have loss consciousness. Patient has no neck or back pain. Patient found to have left hip pain with hematoma present. Patient's only blood thinner is baby aspirin. Patient had x-rays performed which shows suspicion for pubic rami fracture. Due to the large hematoma at the left hip region CT angio was performed to rule out extravasation of the hematoma. Patient CT shows superior inferior pubic rami fracture and no acute extravasation. Case discussed with orthopedics please see below. Patient was given morphine for pain control. Patient did not tolerate it well. Patient became very nauseous tired. Patient needed multiple doses of Zofran. Patient was offered Narcan however she was told that this may block further narcotic medications given for pain control. Patient would like to wait and let the symptoms wear off on their own. Patient admitted to hospital service further treatment evaluation Labs (independently interpreted) are significant for: No electrolyte abnormalities, hemoglobin stable Imaging results (independently interpreted): X-ray pelvis femur shows pubic rami fracture no femur fracture Medications given: Zofran Consultants: Dr. Shepard of orthopedics, reviewed patient's imaging studies weightbearing as tolerated no need for acute surgical intervention. Okay to stay at our facility. [facility] Hospitalist Triage Nursing notes reviewed and agree them. Vital Signs: reviewed and remarkable for: no significant abnormalities Past Med/Surg History Problem List (Updated 08/01/24 @ 23:32 by Ilya Crooks DO) Fall (Acute) Hematoma of left hip (Acute) Closed fracture of inferior pubic ramus (Acute) Closed fracture of superior pubic ramus (Acute) Leukocytosis Closed fracture of pubic ramus Vitamin D deficiency IGT (impaired glucose tolerance) Renal calculi Kidney stones Graves disease (Acute) HX: breast cancer (Chronic) Hematuria Osteoarthrosis (Acute) Other and unspecified ovarian cyst (Acute) Rosacea (Acute) Seborrheic keratosis (Acute) TIA involving carotid artery (Acute) Hypothyroidism (Chronic) Arthritis (Chronic) Dyslipidemia (Chronic) Carotid stenosis, bilateral (Chronic) Hypertension Medical History Back pain Gross hematuria Bone anomaly Dysmetabolic syndrome Dysplastic nevus Elevated blood pressure, situational Lump of skin Lymphedema Migraines 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 Hypercholesteremia History of viral warts History of CHF (congestive heart failure) Surgical History H/O wisdom tooth extraction History of right-sided carotid endarterectomy S/P total abdominal hysterectomy 1980 History of surgery lymphadenectomy-1996 S/P section S/P left mastectomy 1996 Family History Father Myocardial infarction Emphysema lung Mother Myocardial infarction Sister Breast cancer Colorectal cancer Family/Other Heart disease Grandmother (Paternal) Breast cancer Denies family history of Ovarian cancer Prostate cancer Kidney stones Kidney disease Social History Smoking Status: Former smoker Cigarettes Per Day: tried cigarettes for one month during high school; Second Hand Exposure: No; Do You Dip or Chew Tobacco: No; Hx Alcohol Use: No Hx Substance Use: No Preferred Language: Welsh Visual Impairment: No Limitations Hearing Ability: Normal Manager Financial Reporting Required: No marital status: Current Living Situation: Other Current Living Situation Comment: Resides at [facility] current occupational status: retired 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 DOESN'T WANT THE RISK lisinopril Allergy Severe ANGIOEDEMA/ Verified 08/01/24 17:09 SWELLING propylthiouracil Allergy Mild Rash Verified 08/01/24 17:08 doxycycline Allergy Unknown UNKNOWN Verified 02/10/24 09:33 Xjrbxhl-QYW-ZyS Reductase Allergy Unknown MUSCLE PAIN Verified 08/01/24 17:08 Inhibitor [Ubwgwrz-Yfg-Mfo Reductase Inhibitor] Sulfa (Sulfonamide Allergy Unknown itching, Verified 02/10/24 09:33 Antibiotics) RASH adhesive tape Allergy Redness of Verified 08/01/24 17:08 Skin sulfamethoxazole Allergy Rash Verified 08/01/24 17:09 [From Bactrim] trimethoprim [From Bactrim] Allergy Rash Verified 08/01/24 17:09 morphine AdvReac Drowsy Verified 08/01/24 17:58 Home Meds Home Medications Medication Instructions Recorded Confirmed atorvastatin 10 mg tablet 10 mg PO DAILY 08/13/20 08/01/24 aspirin 81 mg tablet,delayed 81 mg PO Q OTHER DAY 11/20/20 08/01/24 release carvedilol 3.125 mg tablet 3.125 mg PO QPM 10/18/22 08/01/24 carvedilol 6.25 mg tablet 6.25 mg PO QAM 10/18/22 08/01/24 coenzyme Q10 200 mg capsule 200 mg PO BID 08/01/24 08/01/24 flaxseed 1 ea PO DAILY 08/01/24 08/01/24 levothyroxine 75 mcg tablet 75 mcg PO 6XWK 08/01/24 08/01/24 (Synthroid) [id number] 1 tab PO DAILY 08/01/24 08/01/24 18 mg-10 mg-45 mg-5 mg-250 mg tablet (B Complex w-Vit C) Results & Data (ED) Vital Signs Vital Signs - 24 hr 08/01/24 16:39 08/01/24 17:21 08/01/24 17:55 Temperature 36.8 C Temperature Source Temporal Artery Scan Pulse Rate 84 85 Pulse Rate [Apical] 74 Pulse Rhythm Regular Pulse Rhythm [Apical] Pulse Strength Normal Pulse Strength [Apical] Respiratory Rate 20 16 Respiratory Effort / Characteristics Non-Labored Spontaneous Non-Labored Respiratory Depth Normal Normal Respiratory Pattern Blood Pressure 168/91 H Blood Pressure [Right Arm] 161/86 H Blood Pressure Mean 116 Blood Pressure Mean [Right Arm] 111 Blood Pressure Position Sitting Blood Pressure Position [Right Arm] Pulse Oximetry 97 96 Oxygen Delivery Method Room Air Room Air Sepsis Recent Fever Within 48 Hours No Sepsis New/Unexplained Change in Mental Status N/A Sepsis Action Taken by Nursing No Action Required 08/01/24 19:30 08/01/24 21:17 Temperature Temperature Source Pulse Rate 76 Pulse Rate [Apical] 100 H Pulse Rhythm Pulse Rhythm [Apical] Regular Pulse Strength Pulse Strength [Apical] Normal Respiratory Rate 17 Respiratory Effort / Characteristics Non-Labored Spontaneous Respiratory Depth Normal Respiratory Pattern Regular Blood Pressure Blood Pressure [Right Arm] 162/85 H Blood Pressure Mean Blood Pressure Mean [Right Arm] 110 Blood Pressure Position Blood Pressure Position [Right Arm] Lying Pulse Oximetry 98 Oxygen Delivery Method Room Air Sepsis Recent Fever Within 48 Hours Sepsis New/Unexplained Change in Mental Status Sepsis Action Taken by Nursing Laboratory Data 08/01/24 17:15 08/01/24 17:15 Lab Results 08/01/24 Range/Units 17:15 WBC 13.89 H (4.8-10.8) K/ul RBC 3.80 L (4.20-5.40) M/uL Hgb 11.8 L (12.0-16.0) g/dl Hct 35.4 L (37.0-47.0) % MCV 93.2 (80.0-100.0) fL MCH 31.1 (25.0-34.0) pg MCHC 33.3 (32.0-36.0) g/dL RDW Std Deviation 43.2 (36.4-46.3) fL RDW Coeff of Abran 12.5 (11.5-14.5) % Plt Count 276 (130-400) K/uL MPV 9.2 L (9.4-12.4) fL Immature Gran % (Auto) 1.0 % Neut % (Auto) 85.7 % Lymph % (Auto) 5.3 % Loving % (Auto) 6.9 % Eos % (Auto) 0.7 % Baso % (Auto) 0.4 % Neut # (Auto) 11.90 H (1.40-6.50) K/uL Lymph # (Auto) 0.74 L (1.20-3.40) K/uL Loving # (Auto) 0.96 H (0.11-0.59) K/uL Eos # (Auto) 0.10 (0.00-0.50) K/uL Baso # (Auto) 0.05 (0.00-0.20) K/uL Immature Gran # (Auto) 0.14 (0.01-0.20) K/uL PT 10.7 (9.0-12.0) Seconds INR 1.0 (0.9-1.1) APTT 25 (21-31) Seconds PTT Ratio 0.9 Sodium 140 (136-145) mmol/L Potassium 3.9 (3.5-5.1) mmol/L Chloride 104 (98-107) mmol/L Carbon Dioxide 31 (21-32) mmol/L Anion Gap 5 (3-11) BUN 25 H (6-23) mg/dl Creatinine 0.86 (0.6-1.2) mg/dl Est Cr Clr Drug Dosing Not Reportable eGFR 67.41 BUN/Creatinine Ratio 29.1 H (10-20) Glucose 125 H (70-99(Fasting)) mg/dl Calcium 9.5 (8.6-10.3) mg/dl Administered Medications Discontinued Medications Sodium Chloride (Nss) 500 mls @ 999 mls/hr IV .Q31M ONE Stop: 08/01/24 18:24 Last Infusion: 08/01/24 18:25 Dose: Infused Documented By: Admin: 08/01/24 17:55 Dose: 999 mls/hr Documented By: CHAD Ceftriaxone Sodium (Rocephin) 2,000 mg in 50 mls @ 100 mls/hr IV NOW STA Stop: 08/01/24 22:30 Last Infusion: 08/01/24 23:00 Dose: Infused Documented By: Admin: 08/01/24 22:26 Dose: 100 mls/hr Documented By: ZONIA Ioversol (Optiray 320 125ml) 119 ml IV ONCE ONE Stop: 08/01/24 18:40 Last Admin: 08/01/24 18:39 Dose: 119 ml Documented By: JOEY Meclizine HCl (Meclizine Hcl 25 Mg Tab) 25 mg PO NOW STA Stop: 08/01/24 22:03 Last Admin: 08/01/24 22:26 Dose: 25 mg Documented By: ZONIA Morphine Sulfate (Morphine Sulfate 4 Mg/Ml 1 Ml Carp\Vial) 4 mg IV NOW STA Stop: 08/01/24 17:05 Last Admin: 08/01/24 17:15 Dose: 4 mg Documented By: CHAD Ondansetron HCl (Ondansetron Inj 2 Mg/Ml 2 Ml Vial) 4 mg IV NOW STA Stop: 08/01/24 17:42 Last Admin: 08/01/24 17:45 Dose: 4 mg Documented By: MMGigi Ondansetron HCl (Ondansetron Inj 2 Mg/Ml 2 Ml Vial) 4 mg IV ONCE ONE Stop: 08/01/24 19:36 Last Admin: 08/01/24 19:36 Dose: 4 mg Documented By: ZONIA Imaging Data Radiologist's Impression: Chest X-Ray 08/01/24 17:04 Clinical History: Fall Technique: A frontal view of the chest was obtained Comparison is made to the prior examination dated 01/01/2022 Findings: There are no confluent pulmonary infiltrates. The heart size is at the upper limit of normal. No pleural effusion or pneumothorax is seen. There is no definite pulmonary nodule. No fracture is noted. There are unchanged left axillary surgical clips Impression: No active disease Electronically signed by Daniel Cardoza 08-01-2024 7:39 PM Femur X-Ray 08/01/24 17:04 Clinical History: Fall 4 views of the left femur are submitted for review. Findings: There are mildly displaced fractures of the left superior and inferior pubic rami. There is a possible fracture of the left acetabulum No subluxation or dislocation is seen. No significant arthritic changes of the left hip joint are seen. There is joint space narrowing and osteophyte formation in the medial and lateral compartments of the left knee. No other osseous abnormality is identified. There are surgical clips in the pelvis. Impression: 1. Fractures of the left superior and inferior pubic rami 2. Possible fracture of the left acetabulum. CT could be considered for further evaluation 3. Left knee osteoarthritis Electronically signed by Daniel Cardoza 08-01-2024 7:42 PM Pelvis X-Ray 08/01/24 17:04 Clinical History: Fall One view of the pelvis is submitted for review. Findings: There are mildly displaced fractures of the left superior and inferior pubic rami. There is a possible fracture of the left acetabulum No subluxation or dislocation is seen. There is moderate severity right hip osteoarthritis. There is degenerative disc disease and scoliosis of the visualized lumbar spine. No other osseous abnormality is identified. There are surgical clips in the pelvis. Impression: 1. Fractures of the left superior and inferior pubic rami 2. Possible fracture of the left acetabulum. CT could be considered for further evaluation 3. Right hip osteoarthritis Electronically signed by Daniel Cardoza 08-01-2024 7:41 PM Pelvis CTA 08/01/24 18:17 EXAMINATION: CT angio pelvis with con CLINICAL HISTORY: Large hematoma, assess for extravasation PRIORS: CT abdomen pelvis 09/05/2020 TECHNIQUE: Contiguous CTA axial images were obtained through the pelvis and upper thighs with the use of intravenous contrast. Sagittal and coronal reformations are supplied. FINDINGS: A large heterogeneous fluid collection (hematoma) is present within the subcutaneous tissues adjacent to the left hip/greater trochanter, which extends deep to the level of the fascia. This is identified on image 41, series 2. Thehematoma is irregularly shaped, predominantly high attenuation and measures, allowing for its irregular shape 10.0 cm in anteroposterior dimension by 5.7 cm in transverse dimension by 11.2 cm in cranial caudal dimension. Moderate surrounding inflammatory change within the subcutaneous tissues, present surrounding the hematoma. A single small penetrating blood vessel is present at the periphery of the hematoma without active extravasation or a vascular blush. Small penetrating blood vessels are also noted within the hip flexor and extensor muscles with no active extravasation. No subcutaneous gas or radiopaque foreign body. In bone windows, moderate to severe osseous demineralization is noted. An oblique to mildly comminuted left obturator ring fracture is present, superior and inferior, with no widening of the pubic symphysis. The left femoral head, neck and visualized proximal femur demonstrate no displaced fracture. A left sacral ignacio fracture is possible on image 113, series 5. No displaced sacral fracture. L4 and L5 vertebral bodies demonstrate no fracture. Advanced degenerative change of the contralateral right hip noted with [id number] appearance and subchondral cystic changes. Moderate atherosclerotic disease of the distal aorta noted. Urinary bladder partly distended and morphologically unremarkable. Right adnexal cyst with adjacent surgical clip. The cyst measures 6.4 cm. A large amount of formed stool present in the colon. Moderate diverticulosis of the sigmoid colon. No dilated loops of bowel. No pelvic hematoma or free fluid. IMPRESSION: 1. Large left subcutaneous hematoma adjacent to the left hip with no active extravasation at this time. 2. Left obturator ring fracture with no widening of the pubic symphysis. ACT 112: Positive. There are findings on this examination that require communication between the performing entity and the patient following Patient Test Result Information Act ([place] ACT 112) guidelines. Electronically signed by Fern Bazan 08-01-2024 7:07 PM Discharge Plan Visit Data Chief Complaint: Fall Stated Complaint: GLF L Hip Pain, No deformity or thinners ED Provider: Ilya Crooks Discharge Problem: Closed fracture of superior pubic ramus, Closed fracture of inferior pubic ramus, Hematoma of left hip, Fall Forms Stand Alone Forms: [facility] Prescriptions Prescriptions: No Action atorvastatin 10 mg tablet 10 mg PO DAILY aspirin 81 mg tablet,delayed release (DR/EC) 81 mg PO Q OTHER DAY carvedilol 3.125 mg tablet 3.125 mg PO QPM Rx Instructions: takes in PM carvedilol 6.25 mg tablet 6.25 mg PO QAM Rx Instructions: takes in AM levothyroxine [Synthroid] 75 mcg Tablet 75 mcg PO 6XWK Rx Instructions: TUESDAY-TUESDAY...SKIP TUESDAY flaxseed Powder 1 ea PO DAILY coenzyme Q10 200 mg Capsule 200 mg PO BID B Complex w-Vit C 01-57-37-5-250 mg Tablet 1 tab PO DAILY Referrals Referrals: Dheeraj Cancino MD [Primary Care Provider] -
[2024-08-01] MEDS: MoRPHine SULFATE 4 MG/ML 1 ML CARP\\VIAL IV STA (17:15)
[2024-08-01 17:31] LABS: Basophils # (auto) 0.05 K/uL (0.00-0.20); Basophils % (auto) 0.4 %; Eosinophils % (auto) 0.7 %; Hematocrit (blood only) 35.4 % (37.0-47.0); Hemoglobin 11.8 g/dl (12.0-16.0); Immature Granulocytes # (auto) 0.14 K/uL (0.01-0.20); Lymphocytes # (auto) 0.74 K/uL (1.20-3.40); Lymphocytes % (auto) 5.3 %; Mean Corpuscular Hemoglobin 31.1 pg (25.0-34.0); Mean Corpuscular Hgb Conc 33.3 g/dL (32.0-36.0); Mean Corpuscular Volume 93.2 fL (80.0-100.0); Mean Platelet Volume 9.2 fL (9.4-12.4); Monocytes # (auto) 0.96 K/uL (0.11-0.59); Monocytes % (auto) 6.9 %; Neutrophils % (auto) 85.7 %; Platelet Count 276 K/uL (130-400); RDW Coefficient of Variation 12.5 % (11.5-14.5); RDW Standard Deviation 43.2 fL (36.4-46.3); White Blood Count 13.89 K/ul (4.8-10.8)
[2024-08-01 17:43] LABS: Anion Gap 5 (3-11); BUN Creatinine Ratio 29.1 (10-20); Blood Urea Nitrogen 25 mg/dl (6-23); Calcium 9.5 mg/dl (8.6-10.3); Carbon Dioxide 31 mmol/L (21-32); Chloride 104 mmol/L (98-107); Glucose 125 mg/dl (70-99(Fasting)); Potassium 3.9 mmol/L (3.5-5.1); Sodium 140 mmol/L (136-145)
[2024-08-01] MEDS: ONDANSETRON INJ 2 MG/ML 2 ML VIAL IV STA (17:45)
[2024-08-01] MEDS: SODIUM CHLORIDE 0.9% 500 ML IV ONE (17:55)
[2024-08-01 18:00] LABS: Partial Thromboplastin Ratio 0.9; Partial Thromboplastin Time 25 Seconds (21-31); Prothrombin Time 10.7 Seconds (9.0-12.0)
[2024-08-01] MEDS: OPTIRAY 320 125ml IV ONE (18:39)
--- NOTE | 2024-08-01 19:08 | CT Scan Report ---
EXAMINATION: CT angio pelvis with con CLINICAL HISTORY: Large hematoma, assess for extravasation PRIORS: CT abdomen pelvis 09/05/2020 TECHNIQUE: Contiguous CTA axial images were obtained through the pelvis and upper thighs with the use of intravenous contrast. Sagittal and coronal reformations are supplied. FINDINGS: A large heterogeneous fluid collection (hematoma) is present within the subcutaneous tissues adjacent to the left hip/greater trochanter, which extends deep to the level of the fascia. This is identified on image 41, series 2. Thehematoma is irregularly shaped, predominantly high attenuation and measures, allowing for its irregular shape 10.0 cm in anteroposterior dimension by 5.7 cm in transverse dimension by 11.2 cm in cranial caudal dimension. Moderate surrounding inflammatory change within the subcutaneous tissues, present surrounding the hematoma. A single small penetrating blood vessel is present at the periphery of the hematoma without active extravasation or a vascular blush. Small penetrating blood vessels are also noted within the hip flexor and extensor muscles with no active extravasation. No subcutaneous gas or radiopaque foreign body. In bone windows, moderate to severe osseous demineralization is noted. An oblique to mildly comminuted left obturator ring fracture is present, superior and inferior, with no widening of the pubic symphysis. The left femoral head, neck and visualized proximal femur demonstrate no displaced fracture. A left sacral ignacio fracture is possible on image 113, series 5. No displaced sacral fracture. L4 and L5 vertebral bodies demonstrate no fracture. Advanced degenerative change of the contralateral right hip noted with [id number] appearance and subchondral cystic changes. Moderate atherosclerotic disease of the distal aorta noted. Urinary bladder partly distended and morphologically unremarkable. Right adnexal cyst with adjacent surgical clip. The cyst measures 6.4 cm. A large amount of formed stool present in the colon. Moderate diverticulosis of the sigmoid colon. No dilated loops of bowel. No pelvic hematoma or free fluid. IMPRESSION: 1. Large left subcutaneous hematoma adjacent to the left hip with no active extravasation at this time. 2. Left obturator ring fracture with no widening of the pubic symphysis. ACT 112: Positive. There are findings on this examination that require communication between the performing entity and the patient following Patient Test Result Information Act ([place] ACT 112) guidelines. Electronically signed by Fern Bazan 08-01-2024 7:07 PM
[2024-08-01] MEDS: ONDANSETRON INJ 2 MG/ML 2 ML VIAL IV ONE (19:36)
--- NOTE | 2024-08-01 19:40 | XRay Report ---
Clinical History: Fall Technique: A frontal view of the chest was obtained Comparison is made to the prior examination dated 01/01/2022 Findings: There are no confluent pulmonary infiltrates. The heart size is at the upper limit of normal. No pleural effusion or pneumothorax is seen. There is no definite pulmonary nodule. No fracture is noted. There are unchanged left axillary surgical clips Impression: No active disease Electronically signed by Daniel Cardoza 08-01-2024 7:39 PM
--- NOTE | 2024-08-01 19:41 | XRay Report ---
Clinical History: Fall One view of the pelvis is submitted for review. Findings: There are mildly displaced fractures of the left superior and inferior pubic rami. There is a possible fracture of the left acetabulum No subluxation or dislocation is seen. There is moderate severity right hip osteoarthritis. There is degenerative disc disease and scoliosis of the visualized lumbar spine. No other osseous abnormality is identified. There are surgical clips in the pelvis. Impression: 1. Fractures of the left superior and inferior pubic rami 2. Possible fracture of the left acetabulum. CT could be considered for further evaluation 3. Right hip osteoarthritis Electronically signed by Daniel Cardoza 08-01-2024 7:41 PM
--- NOTE | 2024-08-01 19:42 | XRay Report ---
Clinical History: Fall 4 views of the left femur are submitted for review. Findings: There are mildly displaced fractures of the left superior and inferior pubic rami. There is a possible fracture of the left acetabulum No subluxation or dislocation is seen. No significant arthritic changes of the left hip joint are seen. There is joint space narrowing and osteophyte formation in the medial and lateral compartments of the left knee. No other osseous abnormality is identified. There are surgical clips in the pelvis. Impression: 1. Fractures of the left superior and inferior pubic rami 2. Possible fracture of the left acetabulum. CT could be considered for further evaluation 3. Left knee osteoarthritis Electronically signed by Daniel Cardoza 08-01-2024 7:42 PM
[2024-08-01] MEDS: cefTRIAXone SODIUM 2,000 MG/50 ML BAG IV STA (22:26)
[2024-08-01] MEDS: MECLIZINE HCL 25 MG TAB PO STA (22:26)
--- NOTE | 2024-08-01 22:27 | History & Physical Report ---
Date of Service August 01, 2024 Assessment & Plan (1) Closed fracture of pubic ramus: (2) Leukocytosis: Plan 83-year-old female PMHx Graves' disease, H/o BCA, OA, hypothyroidism, dyslipidemia, HTN and bilateral carotid stenosis presenting to ED via EMS from [facility] after a fall from standing. She was in the bathroom and slipped on water when she fell, landing on her left side. Did not hit head, only takes aspirin and no additional blood thinner. Imaging revealed fractures of the L superior and inferior pubic rami, and pelvis CTA reveals large L subcutaneous hematoma without active extravasation, does reveal left obturator ring fracture without widening of pubic symphysis. Does have white count 13.89, but no infectious symptoms. Will provide with dose of antibiotics to cover for underlying infection and given overall ill appearance. #Fracture, L superior and inferior pubic rami Fall from standing after slipping on water in the bathroom. Landed on L hip, witnessed by who got her to sitting position, unable to get up by herself to standing. Received 500 mL NSS in ED as well as morphine. Had adverse reaction to morphine with nausea/vomiting so required Zofran x 2. Ongoing dizziness, worsened with morphine so provided with meclizine 25mg po x 1. - CBC with H&H 11.8/35.4 on admission and leukocytosis 13k, CMP without gross electrolyte abnormalities - CBC a.m. - Femur x-ray with fracture of L inferior and inferior pubic rami, ? fracture L acetabulum (CT recommended), L knee OA; pelvis x-ray revealing same as femur x- ray with addition of R hip OA; pelvis CTA large L subcutaneous hematoma adjacent to L hip no active extravasation, no obturator ring fracture without widening of pubic symphysis - Received 500mL in ED; if continuing vomiting, will add maintenance fluids- Encourage po fluids as patient tolerates - BMP a.m. - Pain management as ordered- avoid narcotics given poor response to morphine; zofran added prn - Case discussed with ED provider and orthopedics provider- nonsurgical fractures, no surgery planned - HOLD ASA at admission given hematoma #Leukocytosis Patient without infectious symptoms to include URI symptoms, cough, fever/chills, or LUTS. Given clinical picture of dizziness and pallor appearance as well as presence of leukocytosis, patient agreeable to empiric dose of antibiotics. - CXR without active disease - Pending UA - CBC am - Ceftriaxone 2 g IV empirically #HLD- Atorvastatin #HTN- Amlodipine, carvedilol #Vascular disease- 08/[address] revealing aortic atherosclerosis; follows w/ PCP to monitor #BCA- s/p L mastectomy + adriamycin #Graves disease- S/p radioactive iodine therapy Dispo: Admit, med/sx VTE prophylaxis: SCDs, no chemical prophylaxis added at time of admission given presence of large hematoma This document was dictated utilizing [employer]. Please excuse any grammatical errors that may be secondary to use of this software. Admission and Anticipated Discharge Date Admission Date: 08/01/2024 History of Present Illness Chief Complaint: Fall Primary Care Provider: Dheeraj Cancino MD 83-year-old female PMHx Graves' disease, H/o BCA, OA, hypothyroidism, dyslipidemia, HTN and bilateral carotid stenosis presenting to ED via EMS from [facility] after a fall from standing. She was in the bathroom and slipped on water when she fell, landing on her left side. No symptoms prior to to include dizziness, chest pain, or palpitations. witnessed the event and helped her to sit up until EMS arrived. No seizure like activity or LOC. Was unable to ambulate on her own. Did not hit head, only takes aspirin and no additional blood thinner. Complaining of 8/10 hip pain at time of incident and currently. States that it is aching. Complaining of dizziness that feels like she is spinning, worsening since receiving pain medications. Having associated N/V since the medications as well. Denying chest pain, SOB, palpitations, D/C, abdominal pain, numbness/tingling, or LUTS. No additional infectious symptoms or F/C. Took daily medications. Please see Dr. Leonard's attestation for adjustments/additions to treatment plan. Allergies Allergy/AdvReac Type Severity Reaction Status Date / Time IRVING Inhibitors Allergy Severe ANGIO EDEMA Verified 08/01/24 17:12 ciprofloxacin Allergy Severe SISTER Verified 02/10/24 09:33 ALMOST . DOESN'T WANT THE RISK lisinopril Allergy Severe ANGIOEDEMA/ Verified 08/01/24 17:09 SWELLING propylthiouracil Allergy Mild Rash Verified 08/01/24 17:08 doxycycline Allergy Unknown UNKNOWN Verified 02/10/24 09:33 Ieqqncg-XHI-ZdW Reductase Allergy Unknown MUSCLE PAIN Verified 08/01/24 17:08 Inhibitor [Cgyamvc-Cju-Gud Reductase Inhibitor] Sulfa (Sulfonamide Allergy Unknown itching, Verified 02/10/24 09:33 Antibiotics) RASH adhesive tape Allergy Redness of Verified 08/01/24 17:08 Skin sulfamethoxazole Allergy Rash Verified 08/01/24 17:09 [From Bactrim] trimethoprim [From Bactrim] Allergy Rash Verified 08/01/24 17:09 morphine AdvReac Drowsy Verified 08/01/24 17:58 Home Medications Medication Instructions Recorded Confirmed Type atorvastatin 10 mg tablet 10 mg PO DAILY 08/13/20 08/01/24 History aspirin 81 mg tablet,delayed 81 mg PO Q OTHER DAY 11/20/20 08/01/24 History release carvedilol 3.125 mg tablet 3.125 mg PO QPM 10/18/22 08/01/24 History carvedilol 6.25 mg tablet 6.25 mg PO QAM 10/18/22 08/01/24 History coenzyme Q10 200 mg capsule 200 mg PO BID 08/01/24 08/01/24 History flaxseed 1 ea PO DAILY 08/01/24 08/01/24 History levothyroxine 75 mcg tablet 75 mcg PO 6XWK 08/01/24 08/01/24 History (Synthroid) [id number] 1 tab PO DAILY 08/01/24 08/01/24 History 18 mg-10 mg-45 mg-5 mg-250 mg tablet (B Complex w-Vit C) Past Med/Surg History Problem List Fall (Acute) Hematoma of left hip (Acute) Closed fracture of inferior pubic ramus (Acute) Closed fracture of superior pubic ramus (Acute) Leukocytosis Closed fracture of pubic ramus Vitamin D deficiency IGT (impaired glucose tolerance) Renal calculi Kidney stones Graves disease (Acute) HX: breast cancer (Chronic) Hematuria Osteoarthrosis (Acute) Other and unspecified ovarian cyst (Acute) Rosacea (Acute) Seborrheic keratosis (Acute) TIA involving carotid artery (Acute) Hypothyroidism (Chronic) Arthritis (Chronic) Dyslipidemia (Chronic) Carotid stenosis, bilateral (Chronic) Hypertension Medical History Back pain Gross hematuria Bone anomaly Dysmetabolic syndrome Dysplastic nevus Elevated blood pressure, situational Lump of skin Lymphedema Migraines 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 Hypercholesteremia History of viral warts History of CHF (congestive heart failure) Surgical History H/O wisdom tooth extraction History of right-sided carotid endarterectomy S/P total abdominal hysterectomy 1980 History of surgery lymphadenectomy-1996 S/P section S/P left mastectomy 1996 Family History Father Myocardial infarction Emphysema lung Mother Myocardial infarction Sister Breast cancer Colorectal cancer Family/Other Heart disease Grandmother (Paternal) Breast cancer Denies family history of Ovarian cancer Prostate cancer Kidney stones Kidney disease Social History Smoking Status: Never smoker Cigarettes Per Day: tried cigarettes for one month during high school; Second Hand Exposure: No; Do You Dip or Chew Tobacco: No; Tobacco Cessation Education Requested by Patient: No Hx Alcohol Use: No Hx Substance Use: No Preferred Language: Moroccan Communication Ability: Effective Visual Impairment: No Limitations Hearing Ability: Normal Mechanical Design Engineer Required: No Beliefs That Will Affect Care: None marital status: Current Living Situation: Spouse Current Living Situation Comment: Resides at [facility] current occupational status: retired 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 [employer] How many Children do You have: 3 Other Information That Helps Us Care for You: No Feels Safe at Home: Yes Safety Concerns: Feels Safe At This Time Diet: regular caffeine: Yes (1 coffee monthly) during the past year weight has: remained stable Dental Care, Regularly: Yes Physical Activity Frequency: Does not Exercise Seatbelt Use: always Sunscreen Use: Yes Do you think of yourself as: straight/heterosexual Gender Identity: Female Assistive Devices: Cane Review of Systems Review of Systems: All systems reviewed & are unremarkable except as noted in Subjective Physical Exam Physical Exam: General: Appearing uncomfortable Skin: Warm and dry, without rashes or lesions, appears pallor Head: Normocephalic, atraumatic Eyes: PERRL, conjunctivae clear, sclera non-icteric; EOM intact; wearing glasses ENT: External ear and ear canal without swelling; nose atraumatic; fair dentition, tongue normal appearance, pharynx normal without tonsillar swelling or exudate; oropharynx appearing dry Neck: Supple, no LAD; no JVD Cardio: RRR, no M/G/R, S1 and S2 normal Resp: No respiratory distress, Lungs CTA in all lobes bilaterally, no wheezes, rales, or rhonchi Abdomen: Soft, symmetric, nontender, some discomfort near L hip; no distention; No masses or hepatosplenomegaly; Bowel sounds normoactive MSK: No deformities, full ROM throughout; pulses palpable and equal; no edema. Neuro: Awake, alert; Muscle strength 5/5 bilaterally in UE/LE; Sensation intact bilaterally; CN intact Psych: Very quiet voice, closing eyes, appearing somewhat somnolent; states that this is NOT her baseline. present in room at time of visit. Results & Data Results & Data Vital Signs (Past 12 Hours) Vital Signs Temp Pulse Pulse Resp BP BP Pulse Ox 08/01/24 21:17 76 08/01/24 19:30 100 H 17 162/85 H 98 08/01/24 17:55 74 16 161/86 H 96 08/01/24 17:21 85 08/01/24 16:39 36.8 C 84 20 168/91 H 97 O2 Del Method 08/01/24 21:17 08/01/24 19:30 Room Air 08/01/24 17:55 Room Air 08/01/24 17:21 08/01/24 16:39 Room Air Laboratory Results 08/01/24 17:15 WBC 13.89 H RBC 3.80 L Hgb 11.8 L Hct 35.4 L MCV 93.2 MCH 31.1 MCHC 33.3 RDW Std Deviation 43.2 RDW Coeff of Abran 12.5 Plt Count 276 MPV 9.2 L Immature Gran % (Auto) 1.0 Neut % (Auto) 85.7 Lymph % (Auto) 5.3 Toombs % (Auto) 6.9 Eos % (Auto) 0.7 Baso % (Auto) 0.4 Neut # (Auto) 11.90 H Lymph # (Auto) 0.74 L Toombs # (Auto) 0.96 H Eos # (Auto) 0.10 Baso # (Auto) 0.05 Immature Gran # (Auto) 0.14 PT 10.7 INR 1.0 APTT 25 PTT Ratio 0.9 Sodium 140 Potassium 3.9 Chloride 104 Carbon Dioxide 31 Anion Gap 5 BUN 25 H Creatinine 0.86 Est Cr Clr Drug Dosing Not Reportable eGFR 67.41 BUN/Creatinine Ratio 29.1 H Glucose 125 H Calcium 9.5 Diagnostic Findings Chest X-Ray 08/01/24 17:04 Clinical History: Fall Technique: A frontal view of the chest was obtained Comparison is made to the prior examination dated 01/01/2022 Findings: There are no confluent pulmonary infiltrates. The heart size is at the upper limit of normal. No pleural effusion or pneumothorax is seen. There is no definite pulmonary nodule. No fracture is noted. There are unchanged left axillary surgical clips Impression: No active disease Electronically signed by Daniel Cardoza 08-01-2024 7:39 PM Femur X-Ray 08/01/24 17:04 Clinical History: Fall 4 views of the left femur are submitted for review. Findings: There are mildly displaced fractures of the left superior and inferior pubic rami. There is a possible fracture of the left acetabulum No subluxation or dislocation is seen. No significant arthritic changes of the left hip joint are seen. There is joint space narrowing and osteophyte formation in the medial and lateral compartments of the left knee. No other osseous abnormality is identified. There are surgical clips in the pelvis. Impression: 1. Fractures of the left superior and inferior pubic rami 2. Possible fracture of the left acetabulum. CT could be considered for further evaluation 3. Left knee osteoarthritis Electronically signed by Daniel Cardoza 08-01-2024 7:42 PM Pelvis X-Ray 08/01/24 17:04 Clinical History: Fall One view of the pelvis is submitted for review. Findings: There are mildly displaced fractures of the left superior and inferior pubic rami. There is a possible fracture of the left acetabulum No subluxation or dislocation is seen. There is moderate severity right hip osteoarthritis. There is degenerative disc disease and scoliosis of the visualized lumbar spine. No other osseous abnormality is identified. There are surgical clips in the pelvis. Impression: 1. Fractures of the left superior and inferior pubic rami 2. Possible fracture of the left acetabulum. CT could be considered for further evaluation 3. Right hip osteoarthritis Electronically signed by Daniel Cardoza 08-01-2024 7:41 PM Pelvis CTA 08/01/24 18:17 EXAMINATION: CT angio pelvis with con CLINICAL HISTORY: Large hematoma, assess for extravasation PRIORS: CT abdomen pelvis 09/05/2020 TECHNIQUE: Contiguous CTA axial images were obtained through the pelvis and upper thighs with the use of intravenous contrast. Sagittal and coronal reformations are supplied. FINDINGS: A large heterogeneous fluid collection (hematoma) is present within the subcutaneous tissues adjacent to the left hip/greater trochanter, which extends deep to the level of the fascia. This is identified on image 41, series 2. Thehematoma is irregularly shaped, predominantly high attenuation and measures, allowing for its irregular shape 10.0 cm in anteroposterior dimension by 5.7 cm in transverse dimension by 11.2 cm in cranial caudal dimension. Moderate surrounding inflammatory change within the subcutaneous tissues, present surrounding the hematoma. A single small penetrating blood vessel is present at the periphery of the hematoma without active extravasation or a vascular blush. Small penetrating blood vessels are also noted within the hip flexor and extensor muscles with no active extravasation. No subcutaneous gas or radiopaque foreign body. In bone windows, moderate to severe osseous demineralization is noted. An oblique to mildly comminuted left obturator ring fracture is present, superior and inferior, with no widening of the pubic symphysis. The left femoral head, neck and visualized proximal femur demonstrate no displaced fracture. A left sacral ignacio fracture is possible on image 113, series 5. No displaced sacral fracture. L4 and L5 vertebral bodies demonstrate no fracture. Advanced degenerative change of the contralateral right hip noted with [id number] appearance and subchondral cystic changes. Moderate atherosclerotic disease of the distal aorta noted. Urinary bladder partly distended and morphologically unremarkable. Right adnexal cyst with adjacent surgical clip. The cyst measures 6.4 cm. A large amount of formed stool present in the colon. Moderate diverticulosis of the sigmoid colon. No dilated loops of bowel. No pelvic hematoma or free fluid. IMPRESSION: 1. Large left subcutaneous hematoma adjacent to the left hip with no active extravasation at this time. 2. Left obturator ring fracture with no widening of the pubic symphysis. ACT 112: Positive. There are findings on this examination that require communication between the performing entity and the patient following Patient Test Result Information Act ([place] ACT 112) guidelines. Electronically signed by Fern Bazan 08-01-2024 7:07 PM Medications Administered NSS 500mL IV Zofran 8mg (total) IV Morphine 4mg IV Meclizine 25mg po Ceftriaxone 2g IV Code Status & VTE Plan Code Status DNR/DNI VTE Prophylaxis Plan VTE Prophylaxis will be ordered: Yes Supervising Physician Co-Signing Physician Notes Patient seen and examined, chart reviewed, case discussed with IZZY Beaver and I agree with the assessment and plan as above. In brief, patient is an 83yo female presenting with ground level fall after slipping on water in her kitchen - resulting in pubic ramus fracture, left hip hematoma. Patient became quite nauseated, dizzy and confused after receiving Morphine in the ER Otherwise no complaints at present On exam she is somewhat restless in bed, NAD Skin - intact, hematoma over left hip HEENT - MMM, Neck supple Heart - +S1/S2, regular Lungs - CTA anteriorly Abd - +BS, soft, tender in lower abdomen with no rebound/guarding/peritonitis Ext - palpable pulses, no edema, tenderness at left hip Labs and images reviewed Assessment/Plan Pubic ring fracture - left superior and inferior pubic rami - non-operative per discussion with Ortho -Pain control, PT/OT -Would NOT administer additional Morphine - Toradol PRN -Remainder as above PG Care Time/CCT Total # of Minutes Spent Total Time Spent with Patient: Total time spent is greater than 50% in coordination of care (as documented) at patient's floor/unit and/or counseling patient: Coding Level of Care Code 05422 INT INP/OBS CARE 375MIN Diagnoses Closed fracture of pubic ramus S32.599A Leukocytosis D72.829
[2024-08-02] MEDS ORDERED: bisacodyL 10 MG SUPP PR PRN (00:01)
[2024-08-02] MEDS ORDERED: MAGNESIUM HYDROXIDE SUSP 30 ML UDC PO PRN (00:01)
[2024-08-02] MEDS ORDERED: MELATONIN 3 MG TAB PO PRN (00:01)
[2024-08-02] MEDS ORDERED: ONDANSETRON INJ 2 MG/ML 2 ML VIAL IV PRN (00:01)
[2024-08-02] MEDS ORDERED: NALOXONE HCL 0.4 MG/1 ML VIAL/CARP IV PRN (00:01)
--- OUTSIDE RECORDS SUMMARY | 2024-08-02 00:01 | External Medical Summary | Continuity of Care Document ---
Author Name Unknown Organization [facility] [address] [facility] [address] [phone] Care Team Providers Care Skylights Assembler Name Role Phone Dheeraj Cancino Primary Care Physician [phone] Encounter [facility] [id number] Date(s): 07/06/24 - 07/06/24 [facility] [address] [facility] 2 [address] [phone] Encounter Diagnosis Seborrheic keratoses(Discharge Diagnosis) - 07/06/24 Notalgia paresthetica(Discharge Diagnosis) - 07/06/24 Dry skin(Discharge Diagnosis) - 07/06/24 Discharge Disposition: Home or Self Care Attending Physician: IZZY Valencia Dawn M Allergies, Adverse Reactions, Alerts Substance Criticality Severity Reaction Reaction Severity Status doxycycline oral thrush Active propylthiouracil Unable to assess criticality Moderate Rash Active IRVING Inhibitors angio edema Act reggie sulfa drugs Rash Active Statins (HMG-CoA reductase inhibitors) muscle pain Active Assessment and Plan Extracted from: Title:Dermatology Office Visit Note Author:Alejandra block PA-C, Dawn M Date:07/06/24 1.Seborrheic keratoses chronic and worsening. SEBORRHEIC KERATOSES - discussed the likely benign and genetic nature of these lesions._ watchful waiting. Could be removed if inflamed or problematic. 2.Notalgia paresthetica chronic and worsening.She uses Sarna which is somewhat helpful. Otherwise she is using a back bid analyst. I warned her about creating excoriations that could become infected. I encouraged her to talk to Dr. Dejesus her PCPabout the possibility or the role for any physical therapy or chiropracticin helping her with this condition. In the past Dr. Ritter has injected Kenalog into the skinwhich was ineffective. 3.Dry skin chronic and flared - dove unscented bar soap, bland emollient. Call with questions or concerns. Follow up prn. Patient in agreement with plan. Medications aspirin 81 mg oral delayed release tablet Start: 01/28/22 2:12:00 PM EDT, See Instructions, 1 tab PO every other day Start Date: 01/28/22 Status: Ordered atorvastatin 10 mg oral tablet Start: 11/30/16 1:08:00 PM EDT, 1/2 tab PO daily Start Date: 11/30/16 Status: Ordered carvedilol 3.125 mg oral tablet Start: 08/27/22 10:42:00 AM EST, 1 tab, PO, bid Start Date: 08/27/22 Status: Ordered CoQ10 100 mg oral capsule Start: 01/28/22 2:13:00 PM EDT, 2 caps, PO, Daily Start Date: 01/28/22 Status: Ordered Flax Seed Oil oral capsule Start: 01/28/22 2:10:00 PM EDT Start Date: 01/28/22 Status: Ordered MetroCream 0.75% topical cream Start: 05/05/23 11:30:00 AM EDT, 1 appl, topical, bid, Disp# 45 g, Refills: 2, Pharmacy: [id number] Start Date: 05/05/23 Status: Ordered Synthroid 75 mcg (0.075 mg) oral tablet Start: 05/25/22 12:56:00 PM EST, 1 tab, PO, Daily, every day except tuesday Start Date: 05/25/22 Status: Ordered triamcinolone 0.1% topical cream Start: 03/26/22 2:27:00 PM EDT, 1 appl, topical, bid, Disp# 80 g, Refills: 3, apply to trunk, legs as needed for itching, Pharmacy: [id number] Start Date: 03/26/22 Status: Ordered Vitamin B Complex Start: 04/04/23 1:30:00 PM EDT Start Date: 04/04/23 Status: Ordered Vitamin B12 Start: 03/26/22 2:05:00 PM EDT Start Date: 03/26/22 Status: Ordered Vitamin B2 Start: 03/26/22 2:04:00 PM EDT, 50 mg =, PO, Daily Start Date: 03/26/22 Status: Ordered Mental Status 07/06/24 Barriers to Learning one year None evide nt Mandatory Health Literacy Documentation Yes Communication Barrier Present Yes Health Literacy Communication Barriers N ever Primary Language Latvian Problem List Condition Confirmation Course Effective Dates Status H ealth Status Informant Arthritis Confirmed Active Nevus Confirmed Active Breast ca Confirmed Active Carotid stenosis Confirmed Active Transient ischemic attack Confirmed Active CHF Confirmed Active Graves disease Confirmed Active S/p carotid endarterectomy Confirmed Active HTN (hypertension) Confirmed Active Lipoma Confirmed Active Weight disorder Confirmed Active Diagnosis Diagnosis Type Effective Dates Health Status Clinical Service Informant Seborrheic keratoses Discharge Diagnosis 07/06/24 Dry skin Discharge Diagnosis 07/06/24 Notalgia paresthetica Discharge Diagnosis 07/06/24 Procedures Procedure Date Related Diagnosis Body Site Status Shave biopsy and cauterization of skin 04/04/23 Completed Electrodesiccation of lesion of skin 1 10/06/18 Completed Punch biopsy 2 07/12/17 Completed Shave biopsy and cauterisati on of skin 3 04/11/17 Completed Right CEA - Carotid endarterectomy 12/17/16 Completed Ultrasound--abdominal 4 09/17/[address] of abdomen and pelvis 5 09/14/15 Completed Shave biopsy of skin 03/23/13 Comp leted Shave biopsy of skin 10/27/12 Comp leted delivery Complet ed Hysterectomy Completed Mastectomy Completed 1ED&C x 2 - midback 2right lower abdomen 3ED&C central upper forehead/right upper forehead 41) Subcentimeter hepatic cysts 2) Cholelithiasis. Gallbladder contracted. No convincing evidence for cholecystitis. 3) Question adenomyomatosis 4) Mild prominence of the right renal collecting system. 51) Punctate B/L nephrolithasis. No ureteral calculi or hydronephrosis. Equivocal punctate bladder calculus. Discussed with Dr. Shaffer at time of dictation. 2) Cholelithiasis. 3) 3.9 cm cystic right adnexal lesion. This unchanged from CT of November 05, 2014 but remaines an abnormal finding in a postnenopausal patient and a f/u pelvic ultrasound is recommended to evaluate forcomplexity. Social History Social History Type Response Smoking Status Never smoked cigaret comfort Sex Female Sex Representation Female (finding) Dermatology Outpatient Note * IZZY Valencia, Janelle M: PERFORM Event Display: Dermatology Outpt Note Authored Date: [id number] Chief Complaint skin check - dry flaked skin x 2 years worsening. History of Present Illness IDANIA ALLISON Gerald a83 year old patient returning today BUT NEW TO ME with a chief complaint of skin check - dry flaked skin x 2 years worsening.. She denies bleeding, oozing, butconfirms itch,crusting or evolving lesions. Uses Cetaphil cleanser and moisturizer. Uses Sarna on her back. She has been diagnosed with notalgia paresthetica in the pastand the itch has continued. Patient has no past personal history of skin cancer: Review of Systems Denies fever, chills, sweats, night sweats, weight loss, headache, visual change, stomach upset diarrhea and joint pain. Physical Exam _Constitutional: Generally well appearing, well developed. Appears stated age. Eyes: Conjunctivae and lids without noted inflammation, lesion, mass, deformity or drainage. Cardiovascular: Swelling of the lower extremities not noted. Extremities pink, warm and dry. Extremities: Digits and nails without clubbing, cyanosis, petechiae, signs of ischemia, infectionor inflammation. Neurological / Psychiatric: Oriented to person, place and time. Appropriate mood and affect. No notable depression, anxiety or agitation. Complete skin exam was performed today including head, neck, chest, axillae, abdomen, groin, buttocks, back, bilateral upper and bilateral lower extremities. Palpation of the scalp, inspection of hair of scalp, eyebrows and finger and toenails was performed. 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 SEBORRHEIC KERATOSES - discussed the likely benign and genetic nature ofthese lesions._ watchful waiting. Could be removed if inflamed or problematic. 2.Notalgia paresthetica chronic and worsening.She uses Sarna which is somewhat helpful. Otherwise she is using a back bid analyst. I warned her about creating excoriations that could become infected. I encouraged her to talk to Dr. Dejesus her PCPabout the possibility or the role for any physical therapy orchiropracticin helping her with this condition. In the past Dr. Ritter has injected Kenalog intothe skinwhich was ineffective. 3.Dry skin chronic and flared - dove unscented bar soap, bland emollient. Call with questions or concerns. Follow up prn. Patient in agreement with plan. Problem List/Past Medical History Ongoing Arthritis Breast ca Carotid stenosis CHF Graves disease HTN (hypertension) Lipoma Nevus S/p carotid endarterectomy Transient ischemic attack Weight disorder Procedure/Surgical History Shave biopsy and cauterization of skin| Service Date: 04/04/2023Electrodesiccation of lesion of skin| Service Date: 10/06/2018Punch biopsy| Service Date: 07/12/2017Shave biopsy and cauteri sation of skin| Service Date: 04/11/2017Right CEA - Carotid endarterectomy| Service Date: 12/17/2016Ultrasound--abdominal| Service Date: 09/17/2015CT of abdomen and pelvis| Service Date: 09/14/2015Shave biopsy of skin| Service Date: 03/23/2013Shave biopsy of skin| Service Date: 2012HysterectomyMastectomyCesarean delivery Medications aspirin(aspirin 81 mg oral delayed release tablet), See Instructions atorvastatin(atorvastatin 10 mg oral tablet) carvedilol(carvedilol 3.125 mg oral tablet), 3.125 mg= 1 tab, PO, bid cyanocobalamin(Vitamin B12) flax(Flax Seed Oil oral capsule) levothyroxine(Synthroid 75 mcg (0.075 mg) oral tablet), 75 mcg= 1 tab, PO, Daily metroNIDAZOLE topical(MetroCream 0.75% topical cream), 1 appl, topical, bid, 2 refills multivitamin(Vitamin B Complex) riboflavin(Vitamin B2), 50 mg, PO, Daily triamcinolone topical(triamcinolone 0.1% topical cream), 1 appl, topical, bid, 3 refills ubiquinone(CoQ10 100 mg oral capsule), 2 caps, PO, Daily Allergies propylthiouracil (Moderate)Rash IRVING Inhibitorsangio edema Statins (HMG-CoA reductase inhibitors)muscle pain doxycyclineoral thrush sulfa drugsRash Social History Smoking Status Never smoked cigarettes Family History Alive and well: Sister, Sister, Daughter and Son. Breast cancer: Sister. Diverticulosis: Sister. Heart attack: Mother and Father. Health Status Family Member(s) Electronic Signature on File Electronically Reviewed/Signed by: SETH Willett Author Signature Dt/Tm:07/06/2024 09:11 AM Department of Family Medicine Department of Dermatology [facility] Patient Care team information Care Team Personnel Name: IZZY Tillman Lynn Position: Physician Group Home Paraprofessional Exempt - Vasc Surg Member Role: Lifetime Relationship Address: [address] [place] [address] Name: MD Julita, Dheeraj Garay Position: Referring Member Role: Primary Care Provider Address: [address] [place] [address] Care Team Related Persons Name: YOBANI EMERSON"
[2024-08-02] MEDS: LEVOTHYROXINE SODIUM 75 MCG TABLET PO SCH (06:11)
[2024-08-02 06:24] LABS: Appearance Urine Cloudy (Clear); Bacteria Urine Automated None Seen (None Seen); Bilirubin Urine Negative (Negative); Blood Urine 3+ (Negative); Cast Urine Automated 0-2 /lpf (0-2); Color Urine Orange; Epithelial Cell Urine Auto 0-2 /hpf (0-2); Glucose Urine UA Negative (Negative); Ketones Urine 1+ (Negative); Leukocyte Esterase Urine 1+ (Negative); Nitrite Urine Negative (Negative); Protein Urine 1+ (Negative); RBC Urine Automated >20 /hpf (0-2); Specific Gravity Urine > 1.045 (1.000-1.030); Urobilinogen Urine Negative (Negative); pH Urine 6.5 (4.5-7.5)
[2024-08-02] MEDS: KETOROLAC TROMETHAMINE 15 MG/ML VIAL IV PRN (07:53)
[2024-08-02] MEDS: POLYETHYLENE (MIRALAX) 17 GM PACK PO SCH (08:45)
[2024-08-02] MEDS: VITAMIN B COMPLEX TAB PO SCH (08:48)
[2024-08-02] MEDS: carvediloL 6.25 MG TAB PO SCH (08:48)
[2024-08-02] MEDS: ATORVASTATIN 10 MG TAB PO SCH (08:48)
[2024-08-02 08:59] LABS: Hematocrit (blood only) 29.9 % (37.0-47.0); Hemoglobin 9.9 g/dl (12.0-16.0); Mean Corpuscular Hemoglobin 30.1 pg (25.0-34.0); Mean Corpuscular Hgb Conc 33.1 g/dL (32.0-36.0); Mean Corpuscular Volume 90.9 fL (80.0-100.0); Mean Platelet Volume 9.5 fL (9.4-12.4); Platelet Count 261 K/uL (130-400); RDW Coefficient of Variation 12.7 % (11.5-14.5); RDW Standard Deviation 41.8 fL (36.4-46.3); Red Blood Count 3.29 M/uL (4.20-5.40); White Blood Count 12.27 K/ul (4.8-10.8)
[2024-08-02] MEDS ORDERED: FLAXSEED PO SCH (09:00)
[2024-08-02] MEDS ORDERED: NON-FORMULARY MEDICATION (Coenzyme Q10 200 mg Capsule) PO SCH (09:00)
[2024-08-02 09:21] LABS: BUN Creatinine Ratio 29.8 (10-20); Calcium 9.2 mg/dl (8.6-10.3); Creatinine Clr Calc Pharmacy 36.5 ml/min; Potassium 4.4 mmol/L (3.5-5.1)
--- NOTE | 2024-08-02 13:47 | Electrocardiogram Report ---
Test Reason : Blood Pressure : */* mmHG Vent. Rate : 87 BPM Atrial Rate : 87 BPM P-R Int : 216 ms QRS Dur : 78 ms QT Int : 394 ms P-R-T Axes : 80 -19 60 degrees QTcB Int : 474 ms Sinus rhythm with 1st degree A-V block with occasional Premature ventricular complexes Possible Anterior infarct (cited on or before 24-Nov-2016) Abnormal ECG When compared with ECG of 01-Jan-2022 08:58, Premature ventricular complexes are now Present T wave inversion now evident in Lateral leads Confirmed by Tong Appiah ([id number]) on 08/02/2024 1:46:44 PM Referred By: José Luis Mariano Confirmed By: Tong Appiah
--- NOTE | 2024-08-02 16:50 | Hospitalist Progress Note ---
Date of Service August 02, 2024 Assessment & Plan (1) Closed fracture of pubic ramus: (2) Leukocytosis: Plan 83-year-old female PMHx Graves' disease, H/o BCA, OA, hypothyroidism, dyslipidemia, HTN and bilateral carotid stenosis presenting to ED via EMS from [facility] after a fall from standing. She was in the bathroom and slipped on water when she fell, landing on her left side. Did not hit head, only takes aspirin and no additional blood thinner. Imaging revealed fractures of the L superior and inferior pubic rami, and pelvis CTA reveals large L subcutaneous hematoma without active extravasation, does reveal left obturator ring fracture without widening of pubic symphysis. Does have white count 13.89, but no infectious symptoms. Will provide with dose of antibiotics to cover for underlying infection and given overall ill appearance. #Fracture, L superior and inferior pubic rami - Age-related osteoporosis with current pathological fracture L superior and inferior pubic rami - CBC w/ hgb of 9.9, WBC downtrending 12.27, plt stable. - BMP stable - Femur x-ray with fracture of L inferior and inferior pubic rami, ? fracture L acetabulum (CT recommended), L knee OA - pelvis x-ray revealing same as femur x-ray with addition of R hip OA - pelvis CTA large L subcutaneous hematoma adjacent to L hip no active extravasation, no obturator ring fracture without widening of pubic symphysis - Pain management as ordered- avoid narcotics given poor response to morphine; zofran added prn - Case discussed with ED provider and orthopedics provider- nonsurgical fractures, no surgery planned - HOLD ASA at admission given hematoma - PT/OT recommending rehab at [facility]. - patient agreeable. #Leukocytosis Patient without infectious symptoms to include URI symptoms, cough, fever/chills, or LUTS. Given clinical picture of dizziness and pallor appearance as well as presence of leukocytosis, patient agreeable to empiric dose of antibiotics. - CXR without active disease - UA + --> UC pending - CBC am - Ceftriaxone 2 g IV continued #Acute blood loss anemia trend H/H - hgb currently 9.9 Chronic conditions: HLD- Atorvastatin HTN- Amlodipine, carvedilol Vascular disease- 08/[address] revealing aortic atherosclerosis; follows w/ PCP to monitor BCA- s/p L mastectomy + adriamycin Graves disease- S/p radioactive iodine therapy Dispo: Admit, med/sx - discharge pending stabilization of hgb & hematoma. VTE prophylaxis: SCDs, no chemical prophylaxis added at time of admission given presence of large hematoma Admission and Anticipated Discharge Date Admission Date: August 01, 2024 Subjective Patient seen and examined this morning. Patient reports pain in her pelvic area along with pain in her left buttock region where hematoma is present. She reports she had an adverse reaction to morphine in the ER and is concerned to take further narcotics. Patient would like to get better as fast as she can so she can return to her prior living situation. Physical Exam Constitutional: WD/WN, vitals as above Respiratory: breathing unlabored Cardiovascular: well perfused Skin: L large hematoma near lateral buttock area. Psychiatric: A+Ox3, euthymic affect Results & Data Results & Data Vital Signs (Past 12 Hours) Vital Signs Temp Pulse Resp BP Pulse Ox O2 Del Method 08/02/24 15:03 36.6 C 90 18 101/59 L 95 Room Air 08/02/24 08:47 112/65 08/02/24 07:08 36.4 C L 95 H 18 99/58 L 95 Room Air PG Care Time/CCT Total # of Minutes Spent Total Time Spent with Patient: Total time spent is greater than 50% in coordination of care (as documented) at patient's floor/unit and/or counseling patient: Coding Level of Care Code 40979 SUB INP/OBS CARE 2/35MIN Diagnoses Closed fracture of pubic ramus S32.599A Leukocytosis D72.829
[2024-08-02] MEDS: cefTRIAXone SODIUM 1,000 MG/50 ML BAG IV SCH (17:53)
[2024-08-02] MEDS: carvediloL 3.125 MG TAB PO SCH (19:46)
[2024-08-03 08:15] LABS: Hematocrit (blood only) 23.2 % (37.0-47.0); Hemoglobin 7.7 g/dl (12.0-16.0); Mean Corpuscular Hemoglobin 30.2 pg (25.0-34.0); Mean Corpuscular Hgb Conc 33.2 g/dL (32.0-36.0); Mean Platelet Volume 9.3 fL (9.4-12.4); Platelet Count 189 K/uL (130-400); RDW Coefficient of Variation 13.1 % (11.5-14.5); RDW Standard Deviation 42.8 fL (36.4-46.3); Red Blood Count 2.55 M/uL (4.20-5.40); White Blood Count 10.06 K/ul (4.8-10.8)
[2024-08-03 08:25] LABS: BUN Creatinine Ratio 34.1 (10-20); Calcium 8.9 mg/dl (8.6-10.3); Creatinine Clr Calc Pharmacy 37.7 ml/min
[2024-08-03 10:52] LABS: Hematocrit (blood only) 21.9 % (37.0-47.0); Hemoglobin 7.2 g/dl (12.0-16.0)
[2024-08-03] MEDS ORDERED: SODIUM CHLORIDE 0.9% 100 ML IV PRN (11:11)
[2024-08-03] MEDS ORDERED: SODIUM CHLORIDE 0.9% 50 ML IV PRN (11:11)
--- NOTE | 2024-08-03 11:26 | Orthopedic Consultation ---
Date of Consultation August 03, 2024 Assessment & Plan (1) Hematoma of left hip: Patient may be weightbearing as tolerated on the left lower extremity with walker assistance. Her fracture is minimally displaced. Pain controlled p.o. medication Agree with holding blood thinning products to decrease risk of further bleeding Patient will receive a blood transfusion once she was moved to the second floor Do not recommend surgery due to high risk of infection. Recommend drainage by interventional radiology. Patient may need to be transferred to facility with IR capabilities. (2) Closed fracture of inferior pubic ramus: Supervising Physician Co-Signing Physician Notes I reviewed the patient's clinical images, CT scan, x-rays, and medical record. Discussed her with Dr. Payne and LETICIA Sánchez and performed the substantive portion of the visit. Agree with above note. Patient would likely benefit from drainage of hematoma by interventional radiology. Surgery not recommended due to high risk of wound infection. History of Present Illness Reason for Consultation: Left inferior pubic rami fracture; left thigh hematoma Requesting Physician: Ricky Fountain MD Attending Physician: Tristin Fernando History of Present Illness 83-year-old female PMHx Graves' disease, H/o BCA, OA, hypothyroidism, dyslipidemia, HTN and bilateral carotid stenosis presenting to ED via EMS from [facility] after a fall from standing. She was in the bathroom and slipped on water when she fell, landing on her left side. witnessed the event and helped her to sit up until EMS arrived. No seizure like activity or LOC. Was unable to ambulate on her own. Did not hit head, only takes aspirin and no additional blood thinner. Complaining of 8/10 hip pain at time of incident and currently. States that it is aching. Denying chest pain, SOB, palpitations, D/C, abdominal pain, numbness/tingling, or LUTS. No additional infectious symptoms or F/C. Patient's hemoglobin has dropped from 11.8 upon discharge to 7.2. She is currently being moved from [facility] to [facility] for med/tele. She will be transfused. Interventional radiology is not comfortable with performing an aspiration of the hematoma. They are considering transferring her to a tertiary care facility that we will be able to perform the procedure. Allergies Allergy/AdvReac Type Severity Reaction Status Date / Time IRVING Inhibitors Allergy Severe ANGIO EDEMA Verified 08/01/24 17:12 ciprofloxacin Allergy Severe SISTER Verified 02/10/24 09:33 ALMOST . DOESN'T WANT THE RISK lisinopril Allergy Severe ANGIOEDEMA/ Verified 08/01/24 17:09 SWELLING propylthiouracil Allergy Mild Rash Verified 08/01/24 17:08 doxycycline Allergy Unknown UNKNOWN Verified 02/10/24 09:33 Jpubgfw-HXK-FfB Reductase Allergy Unknown MUSCLE PAIN Verified 08/01/24 17:08 Inhibitor [Jeatmsz-Ngq-Lfo Reductase Inhibitor] Sulfa (Sulfonamide Allergy Unknown itching, Verified 02/10/24 09:33 Antibiotics) RASH adhesive tape Allergy Redness of Verified 08/01/24 17:08 Skin sulfamethoxazole Allergy Rash Verified 08/01/24 17:09 [From Bactrim] trimethoprim [From Bactrim] Allergy Rash Verified 08/01/24 17:09 morphine AdvReac Drowsy Verified 08/01/24 17:58 Home Medications Medication Instructions Recorded Confirmed Type atorvastatin 10 mg tablet 10 mg PO DAILY 08/13/20 08/01/24 History aspirin 81 mg tablet,delayed 81 mg PO Q OTHER DAY 11/20/20 08/01/24 History release carvedilol 3.125 mg tablet 3.125 mg PO QPM 10/18/22 08/01/24 History carvedilol 6.25 mg tablet 6.25 mg PO QAM 10/18/22 08/01/24 History coenzyme Q10 200 mg capsule 200 mg PO BID 08/01/24 08/01/24 History flaxseed 1 ea PO DAILY 08/01/24 08/01/24 History levothyroxine 75 mcg tablet 75 mcg PO 6XWK 08/01/24 08/01/24 History (Synthroid) [id number] 1 tab PO DAILY 08/01/24 08/01/24 History 18 mg-10 mg-45 mg-5 mg-250 mg tablet (B Complex w-Vit C) Patient History Medical History Back pain Gross hematuria Bone anomaly Dysmetabolic syndrome Dysplastic nevus Elevated blood pressure, situational Lump of skin Lymphedema Migraines 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 Hypercholesteremia History of viral warts History of CHF (congestive heart failure) Surgical History H/O wisdom tooth extraction History of right-sided carotid endarterectomy S/P total abdominal hysterectomy 1980 History of surgery lymphadenectomy-1996 S/P section S/P left mastectomy 1996 Family History Father Myocardial infarction Emphysema lung Mother Myocardial infarction Sister Breast cancer Colorectal cancer Family/Other Heart disease Grandmother (Paternal) Breast cancer Denies family history of Ovarian cancer Prostate cancer Kidney stones Kidney disease Social History Smoking Status: Never smoker Cigarettes Per Day: tried cigarettes for one month during high school; Second Hand Exposure: No; Do You Dip or Chew Tobacco: No; Hx Alcohol Use: No Hx Substance Use: No Preferred Language: Azeri Communication Ability: Effective Visual Impairment: No Limitations Hearing Ability: Normal Metallurgy Teacher Required: No Beliefs That Will Affect Care: None marital status: Current Living Situation: Spouse Current Living Situation Comment: Resides at [facility] current occupational status: retired 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 [employer] How many Children do You have: 3 Feels Safe at Home: Yes Diet: regular caffeine: Yes (1 coffee monthly) during the past year weight has: remained stable Dental Care, Regularly: Yes Physical Activity Frequency: Does not Exercise Seatbelt Use: always Sunscreen Use: Yes Do you think of yourself as: straight/heterosexual Gender Identity: Female Assistive Devices: Cane Review of Systems Review of Systems: All systems reviewed & are unremarkable except as noted in Subjective Physical Exam Physical Exam: Left lower extremity: Patient has a volleyball sized hematoma over the posterior lateral aspect of the left thigh that is firm to palpation with a central area of skin sloughing. There is no open areas or active bleeding. Patient also experiences tenderness to palpation over the left inferior pubic rami. There is some mild edema but no erythema or ecchymosis. She is able to ambulate. She is able to perform active straight leg raise test and actively dorsi and plantarflex her foot. She was also able to flex her knee to 90 degrees with only minimal discomfort. She is neurovascularly intact in the right lower extremity. Results & Data Vital Signs (Past 12 Hours) Vital Signs Temp Pulse Resp BP Pulse Ox O2 Del Method 08/03/24 07:32 36.7 C 97 H 20 112/58 L 92 Room Air Diagnostic Findings Laboratory Results WBC 10.06 K/ul (4.8-10.8) 08/03/24 07:56 RBC 2.55 M/uL (4.20-5.40) L 08/03/24 07:56 Hgb 7.2 g/dl (12.0-16.0) L 08/03/24 10:19 Hct 21.9 % (37.0-47.0) L 08/03/24 10:19 MCV 91.0 fL (80.0-100.0) 08/03/24 07:56 MCH 30.2 pg (25.0-34.0) 08/03/24 07:56 MCHC 33.2 g/dL (32.0-36.0) 08/03/24 07:56 RDW Std Deviation 42.8 fL (36.4-46.3) 08/03/24 07:56 RDW Coeff of Abran 13.1 % (11.5-14.5) 08/03/24 07:56 Plt Count 189 K/uL (130-400) 08/03/24 07:56 MPV 9.3 fL (9.4-12.4) L 08/03/24 07:56 Immature Gran % (Auto) 1.0 % 08/01/24 17:15 Neut % (Auto) 85.7 % 08/01/24 17:15 Lymph % (Auto) 5.3 % 08/01/24 17:15 [place] % (Auto) 6.9 % 08/01/24 17:15 Eos % (Auto) 0.7 % 08/01/24 17:15 Baso % (Auto) 0.4 % 08/01/24 17:15 Neut # (Auto) 11.90 K/uL (1.40-6.50) H 08/01/24 17:15 Lymph # (Auto) 0.74 K/uL (1.20-3.40) L 08/01/24 17:15 [place] # (Auto) 0.96 K/uL (0.11-0.59) H 08/01/24 17:15 Eos # (Auto) 0.10 K/uL (0.00-0.50) 08/01/24 17:15 Baso # (Auto) 0.05 K/uL (0.00-0.20) 08/01/24 17:15 Immature Gran # (Auto) 0.14 K/uL (0.01-0.20) 08/01/24 17:15 PT 10.7 Seconds (9.0-12.0) 08/01/24 17:15 INR 1.0 (0.9-1.1) 08/01/24 17:15 APTT 25 Seconds (21-31) 08/01/24 17:15 PTT Ratio 0.9 08/01/24 17:15 Sodium 139 mmol/L (136-145) 08/03/24 07:56 Potassium 4.0 mmol/L (3.5-5.1) 08/03/24 07:56 Chloride 106 mmol/L (98-107) 08/03/24 07:56 Carbon Dioxide 27 mmol/L (21-32) 08/03/24 07:56 Anion Gap 6 (3-11) 08/03/24 07:56 BUN 31 mg/dl (6-23) H 08/03/24 07:56 Creatinine 0.91 mg/dl (0.6-1.2) 08/03/24 07:56 Est Cr Clr Drug Dosing 37.7 ml/min 08/03/24 07:56 eGFR 62.99 08/03/24 07:56 BUN/Creatinine Ratio 34.1 (10-20) H 08/03/24 07:56 Glucose 111 mg/dl (70-99(Fasting)) H 08/03/24 07:56 Calcium 8.9 mg/dl (8.6-10.3) 08/03/24 07:56 Urine Color [place] 08/02/24 06:05 Urine Appearance Cloudy (Clear) A 08/02/24 06:05 Urine pH 6.5 (4.5-7.5) 08/02/24 06:05 Ur Specific [place] > 1.045 (1.000-1.030) H 08/02/24 06:05 Urine Protein 1+ (Negative) H 08/02/24 06:05 Urine Glucose (UA) Negative (Negative) 08/02/24 06:05 Urine Ketones 1+ (Negative) H 08/02/24 06:05 Urine Blood 3+ (Negative) H 08/02/24 06:05 Urine Nitrite Negative (Negative) 08/02/24 06:05 Urine Bilirubin Negative (Negative) 08/02/24 06:05 Urine Urobilinogen Negative (Negative) 08/02/24 06:05 Ur Leukocyte Esterase 1+ (Negative) H 08/02/24 06:05 Urine WBC (Auto) 11-20 /hpf (0-5) H 08/02/24 06:05 Urine RBC (Auto) >20 /hpf (0-2) H 08/02/24 06:05 U Hyaline Cast (Auto) 0-2 /lpf (0-2) 08/02/24 06:05 U Epithel Cells (Auto) 0-2 /hpf (0-2) 08/02/24 06:05 Urine Bacteria (Auto) None Seen (None Seen) 08/02/24 06:05 Crossmatch See Detail 08/03/24 10:18 Impressions Chest X-Ray 08/01/24 17:04 Clinical History: Fall Technique: A frontal view of the chest was obtained Comparison is made to the prior examination dated 01/01/2022 Findings: There are no confluent pulmonary infiltrates. The heart size is at the upper limit of normal. No pleural effusion or pneumothorax is seen. There is no definite pulmonary nodule. No fracture is noted. There are unchanged left axillary surgical clips Impression: No active disease Electronically signed by Daniel Cradoza 08-01-2024 7:39 PM Femur X-Ray 08/01/24 17:04 Clinical History: Fall 4 views of the left femur are submitted for review. Findings: There are mildly displaced fractures of the left superior and inferior pubic rami. There is a possible fracture of the left acetabulum No subluxation or dislocation is seen. No significant arthritic changes of the left hip joint are seen. There is joint space narrowing and osteophyte formation in the medial and lateral compartments of the left knee. No other osseous abnormality is identified. There are surgical clips in the pelvis. Impression: 1. Fractures of the left superior and inferior pubic rami 2. Possible fracture of the left acetabulum. CT could be considered for further evaluation 3. Left knee osteoarthritis Electronically signed by Daniel Cardoza 08-01-2024 7:42 PM Pelvis X-Ray 08/01/24 17:04 Clinical History: Fall One view of the pelvis is submitted for review. Findings: There are mildly displaced fractures of the left superior and inferior pubic rami. There is a possible fracture of the left acetabulum No subluxation or dislocation is seen. There is moderate severity right hip osteoarthritis. There is degenerative disc disease and scoliosis of the visualized lumbar spine. No other osseous abnormality is identified. There are surgical clips in the pelvis. Impression: 1. Fractures of the left superior and inferior pubic rami 2. Possible fracture of the left acetabulum. CT could be considered for further evaluation 3. Right hip osteoarthritis Electronically signed by Daniel Cardoza 08-01-2024 7:41 PM Pelvis CTA 08/01/24 18:17 EXAMINATION: CT angio pelvis with con CLINICAL HISTORY: Large hematoma, assess for extravasation PRIORS: CT abdomen pelvis 09/05/2020 TECHNIQUE: Contiguous CTA axial images were obtained through the pelvis and upper thighs with the use of intravenous contrast. Sagittal and coronal reformations are supplied. FINDINGS: A large heterogeneous fluid collection (hematoma) is present within the subcutaneous tissues adjacent to the left hip/greater trochanter, which extends deep to the level of the fascia. This is identified on image 41, series 2. Thehematoma is irregularly shaped, predominantly high attenuation and measures, allowing for its irregular shape 10.0 cm in anteroposterior dimension by 5.7 cm in transverse dimension by 11.2 cm in cranial caudal dimension. Moderate surrounding inflammatory change within the subcutaneous tissues, present surrounding the hematoma. A single small penetrating blood vessel is present at the periphery of the hematoma without active extravasation or a vascular blush. Small penetrating blood vessels are also noted within the hip flexor and extensor muscles with no active extravasation. No subcutaneous gas or radiopaque foreign body. In bone windows, moderate to severe osseous demineralization is noted. An oblique to mildly comminuted left obturator ring fracture is present, superior and inferior, with no widening of the pubic symphysis. The left femoral head, neck and visualized proximal femur demonstrate no displaced fracture. A left sacral ignacio fracture is possible on image 113, series 5. No displaced sacral fracture. L4 and L5 vertebral bodies demonstrate no fracture. Advanced degenerative change of the contralateral right hip noted with [id number] appearance and subchondral cystic changes. Moderate atherosclerotic disease of the distal aorta noted. Urinary bladder partly distended and morphologically unremarkable. Right adnexal cyst with adjacent surgical clip. The cyst measures 6.4 cm. A large amount of formed stool present in the colon. Moderate diverticulosis of the sigmoid colon. No dilated loops of bowel. No pelvic hematoma or free fluid. IMPRESSION: 1. Large left subcutaneous hematoma adjacent to the left hip with no active extravasation at this time. 2. Left obturator ring fracture with no widening of the pubic symphysis. ACT 112: Positive. There are findings on this examination that require communication between the performing entity and the patient following Patient Test Result Information Act ([place] ACT 112) guidelines. Electronically signed by Fern Bazan 08-01-2024 7:07 PM
[2024-08-03] MEDS: OPTIRAY 320 125ml IV ONE (12:57)
--- NOTE | 2024-08-03 13:36 | CT Scan Report ---
CT angio pelvis w con CLINICAL HISTORY: left hematoma, growing in size TECHNIQUE: Multidetector row helical CT of the pelvis was performed, following intravenous administra tion of iodinated contrast. No oral contrast was administered. Automated dose lowering techniques and /or adjustment according to patient size were utilized for this exam. Coronal and sagittal reformatio ns were obtained. MIP and 3D volume rendered reconstructions were obtained. CT DOSE: 578.55 mGy.cm COMPARISON: None available at the time of this dictation. FINDINGS: Bladder: Limited evaluation due to underdistention. Reproductive organs: Patient is status post hysterectomy. I lateral cysts, possibly adnexal cysts, ar e seen. Bowel: Diverticulosis is seen without diverticulitis. The appendix is normal. Lymph nodes Pelvic: Unremarkable. Mesenteric: Unremarkable. Peritoneum: Surgical clips are seen in the pelvis. Vessels: Unremarkable. Abdominal wall: Left lateral thigh hematoma is seen measuring up to 66 mm. No evidence of active extr avasation is seen. Bones: Fracture of the superior inferior left pubic rami noted. IMPRESSION: 1. Left thigh hematoma without evidence of active extravasation. This is stable from prior exam. 2. Redemonstration of a left obturator ring fracture. The pubic symphysis appears intact. ACT 112: Negative or not required by law. Electronically signed by: Haja Angela M.D. 08/03/2024 1:35 PM
--- NOTE | 2024-08-03 17:23 | Hospitalist Progress Note ---
Date of Service August 03, 2024 Assessment & Plan (1) Closed fracture of pubic ramus: (2) Leukocytosis: Plan 83-year-old female PMHx Graves' disease, H/o BCA, OA, hypothyroidism, dyslipidemia, HTN and bilateral carotid stenosis presenting to ED via EMS from [facility] after a fall from standing. She was in the bathroom and slipped on water when she fell, landing on her left side. Did not hit head, only takes aspirin and no additional blood thinner. Imaging revealed fractures of the L superior and inferior pubic rami, and pelvis CTA reveals large L subcutaneous hematoma without active extravasation, does reveal left obturator ring fracture without widening of pubic symphysis. Does have white count 13.89, but no infectious symptoms. Will provide with dose of antibiotics to cover for underlying infection and given overall ill appearance. #Fracture, L superior and inferior pubic rami - Age-related osteoporosis with current pathological fracture L superior and inferior pubic rami -CBC w/ drop of hgb to 7.7 08/03, repeat 2h later was further decreased to 7.2., leukocytosis resolved. -s/p 1 unit PRBCs w/ repeat H/H pending. If low, will plan to transfuse 1 additional unit. -repeat CTA 08/03 - negative for acute extravasation and stable hematoma when compared to pelvic CTA on 08/01. -XR - fx of L superior and inferior pubic rami, L knee OA -ortho consulted 08/03 - hold any anticoagulants. recommend against surgery due to risk of infection. recommend IR drainage - transfer to [facility] -discussed with our IR team 08/03 who advised transfer to tertiary care center and that upon review of CTA from 08/01 it did appear to have active bleeding -transfer center notified and attempt to transfer patient to [facility] - [facility] denied transfer and recommended a pressure dressing given negative CTA findings - if hgb continues to drop or patient requires multiple transfusions, may need to re- apply for transfer. -Pain management ordered - Toradol d/c, Tylenol available but patient continues to decline pain management. If she is agreeable consider oxycodone vs Diluadid to aide with pain control. - PT/OT recommending rehab at [facility]. #Leukocytosis Patient without infectious symptoms to include URI symptoms, cough, fever/chills, or LUTS. Given clinical picture of dizziness and pallor appearance as well as presence of leukocytosis, patient agreeable to empiric dose of antibiotics. - CXR without active disease - UA + --> UC pin-point growth re-incubating - CBC w/ resolution of leukocytosis - Ceftriaxone 2 g IV continued #Acute blood loss anemia trend H/H - hgb currently 7.2 plan as above. Chronic conditions: HLD- Atorvastatin HTN- Amlodipine, carvedilol Vascular disease- 08/[address] revealing aortic atherosclerosis; follows w/ PCP to monitor BCA- s/p L mastectomy + adriamycin Graves disease- S/p radioactive iodine therapy Dispo: Admit, med/sx - discharge pending stabilization of hgb & hematoma. VTE prophylaxis: SCDs, no chemical prophylaxis added at time of admission given presence of large hematoma Updated at bedside 08/03. Case discussed with Ortho and IR teams 08/03 Admission and Anticipated Discharge Date Admission Date: August 01, 2024 Supervising Physician Co-Signing Physician Notes During face to face encounter, I inquired patient regarding her symptoms and obtained a brief physical examination, discussed plan of care with patient. I discussed plan of care with CHERYL Payne. I reviewed above note and agree with it except for the following: Concern for active bleeding due to her trauma. Transfer to tertiary center was denied. Patient's vitals are also stable. Will continue to monitor patient. Subjective Patient seen and examined this morning. Patient pale and lethargic at bedside. Hematoma grew significantly overnight. she admits to left sided hip pain in site of hematoma. she is refusing pain medication due to her AE she had from morphine in the ED. Re-examined this afternoon after 1 unit of PRBCs and patient appeared to be improved. H and H pending to see if she will require another unit. Physical Exam 2 Constitutional: WD/WN, vitals as above Respiratory: normal respiratory effort, lungs clear to auscultation Cardiovascular: RRR, no murmur, no edema Musculoskeletal: Psychiatric: A+Ox3, euthymic affect Results & Data Results & Data Vital Signs (Past 12 Hours) Vital Signs Temp Pulse Pulse Resp BP BP Pulse Ox 08/03/24 16:26 37.0 C 85 16 115/62 93 08/03/24 15:04 91 H 08/03/24 14:51 37 C 74 18 126/67 08/03/24 14:39 37.0 C 85 16 115/62 93 08/03/24 14:07 36.9 C 89 18 102/63 90 08/03/24 13:58 95 H 08/03/24 13:54 37 C 89 18 108/59 L 08/03/24 13:40 36.8 C 89 16 129/67 94 08/03/24 13:38 36.8 C 89 16 129/67 94 08/03/24 13:22 36.8 C 90 18 138/73 97 08/03/24 12:19 37.0 C 84 18 124/65 91 08/03/24 07:32 36.7 C 97 H 20 112/58 L 92 O2 Del Method O2 Flow Rate 08/03/24 16:26 0 08/03/24 15:04 08/03/24 14:51 08/03/24 14:39 0 08/03/24 14:07 08/03/24 13:58 08/03/24 13:54 08/03/24 13:40 0 08/03/24 13:38 0 08/03/24 13:22 Room Air 08/03/24 12:19 Room Air 08/03/24 07:32 Room Air PG Care Time/CCT Total # of Minutes Spent Total Time Spent with Patient: Total time spent is greater than 50% in coordination of care (as documented) at patient's floor/unit and/or counseling patient: Coding Level of Care Code 29564 SUB INP/OBS CARE 3/50MIN Diagnoses Closed fracture of pubic ramus S32.599A Leukocytosis D72.829
[2024-08-03 17:51] LABS: Hemoglobin 9.9 g/dl (12.0-16.0)
[2024-08-04 06:20] LABS: BUN Creatinine Ratio 31.3 (10-20); Calcium 8.2 mg/dl (8.6-10.3); Creatinine Clr Calc Pharmacy 53.6 ml/min; Hematocrit (blood only) 26.8 % (37.0-47.0); Hemoglobin 9.1 g/dl (12.0-16.0); Mean Corpuscular Hemoglobin 30.5 pg (25.0-34.0); Mean Corpuscular Volume 89.9 fL (80.0-100.0); Mean Platelet Volume 9.6 fL (9.4-12.4); Platelet Count 188 K/uL (130-400); Potassium 3.9 mmol/L (3.5-5.1); RDW Coefficient of Variation 13.8 % (11.5-14.5); RDW Standard Deviation 45.5 fL (36.4-46.3); Red Blood Count 2.98 M/uL (4.20-5.40); White Blood Count 9.54 K/ul (4.8-10.8)
--- NOTE | 2024-08-04 06:56 | Hospitalist Progress Note ---
Date of Service August 04, 2024 Assessment & Plan (1) Closed fracture of pubic ramus: (2) Leukocytosis: Plan 83-year-old female PMHx Graves' disease, H/o BCA, OA, hypothyroidism, dyslipidemia, HTN and bilateral carotid stenosis presenting to ED via EMS from [facility] after a fall from standing. She was in the bathroom and slipped on water when she fell, landing on her left side. Did not hit head, only takes aspirin and no additional blood thinner. Imaging revealed fractures of the L superior and inferior pubic rami, and pelvis CTA reveals large L subcutaneous hematoma without active extravasation, does reveal left obturator ring fracture without widening of pubic symphysis. Does have white count 13.89, but no infectious symptoms. Will provide with dose of antibiotics to cover for underlying infection and given overall ill appearance. #Fracture, L superior and inferior pubic rami - Age-related osteoporosis with current pathological fracture L superior and inferior pubic rami -repeat CTA 08/03 - negative for acute extravasation and stable hematoma when compared to pelvic CTA on 08/01. -XR - fx of L superior and inferior pubic rami, L knee OA -ortho consulted 08/03 - hold any anticoagulants. recommend against surgery due to risk of infection. recommend IR drainage - transfer to [facility] -discussed with our IR team 08/03 who advised transfer to tertiary care center and that upon review of CTA from 08/01 it did appear to have active bleeding -transfer center notified and attempt [place] [facility] [place] [facility] [place] and recommended a pressure dressing given negative CTA findings - if hgb continues to drop or patient requires multiple transfusions, may need to re- apply for transfer. -Pain management ordered with Tylenol and ibuprofen. - PT/OT recommending rehab at [facility]. -Patient wishes to hold off on transfer at this time. Spoke with orthopedics today who states that radiology recommends against IR drainage of this hematoma. Also concerns over surgical intervention with this hematoma. -Ortho consulted vascular surgery for evaluation and treatment of hematoma. -Ortho also recommends holding anticoagulation for hematoma and have patient follow-up in 4 weeks for repeat pelvic x-rays. #Leukocytosis - Patient without infectious symptoms to include URI symptoms, cough, fever/chills, or LUTS. Given clinical picture of dizziness and pallor appearance as well as presence of leukocytosis, patient agreeable to empiric dose of antibiotics. - CXR without active disease - UA + --> urine culture showing probable skin mejia. - CBC w/ resolution of leukocytosis - Ceftriaxone 2 g IV continued. #Acute blood loss anemia trend H/H - hgb currently 9.1 status post 1 packed red blood cells. plan as above. Chronic conditions: HLD- Atorvastatin HTN- Amlodipine, carvedilol Vascular disease- 08/[address] revealing aortic atherosclerosis; follows w/ PCP to monitor BCA- s/p L mastectomy + adriamycin Graves disease- S/p radioactive iodine therapy Dispo: Admit, med/sx VTE prophylaxis: SCDs, no chemical prophylaxis added at time of admission given presence of large hematoma Admission and Anticipated Discharge Date Admission Date: August 01, 2024 Supervising Physician Co-Signing Physician Notes Attending Physician Supervision Note: I independently interviewed and examined the patient and verified the petit history and physical, reviewed labs and image studies and agree with findings and care plan noted above. Pain controlled. comfortable in bed. vitals noted nad heent nc at mmm breathing unlabored no accessory muscles good effort skin no rashes no pallor or icterus neuro no focal deficits. Left hip area - extensive bruise. Left superior/Inferior ramus fracture Left hip hematoma -ortho eval done. -pain control -hold anticoagulation. -PT/OT placement Acute blood loss anemia - stable h/h Leucocytosis - likely reactive. SCD Subjective Patient seen bedside this morning. She states that her hematoma is getting better. States that her swelling has came down since yesterday. She still has some pain though states that it is also improving. Denies any other issues or concerns at this time. Did discuss possible transfer to tertiary center. Patient wishes to hold off on transfer at this time and wait to see if her hematoma improved. Review of Systems Review of Systems: All systems reviewed & are unremarkable except as noted in Subjective Physical Exam Physical Exam: Constitutional: well-appearing, no acute distress HEENT: NCAT, no conjunctival injection CV: regular rhythm, no murmur appreciated, extremities well-perfused, no LE edema Resp: CTABL, no wheezes/rales/rhonchi appreciated, no increased work of breathing GI: soft, nondistended, nontender, BS normoactive MSK: Large hematoma over the left hip and buttocks. Superficial open wound over area. Neuro: alert, oriented, no focal neurologic deficit appreciated Results & Data Results & Data Vital Signs (Past 12 Hours) Vital Signs Temp Pulse Pulse Resp BP Pulse Ox O2 Del Method 08/04/24 06:38 77 08/04/24 04:20 36.7 C 78 20 165/75 H 96 Room Air 08/03/24 23:23 36.6 C 78 20 127/67 92 Room Air 08/03/24 21:48 84 08/03/24 20:15 Room Air 08/03/24 20:15 37.1 C 91 H 20 160/81 H 95 Room Air
[2024-08-04] MEDS: IBUPROFEN 200 MG TAB PO PRN (09:07)
[2024-08-04] MEDS: DOCUSATE SODIUM 100 MG CAP PO SCH (11:30)
--- NOTE | 2024-08-04 11:50 | Orthopedic Progress Note ---
Date of Service August 04, 2024 Assessment & Plan (1) Hematoma of left hip: Plan: Discussed with patient that the concern with the hematoma is pressure on the overlying skin causing skin necrosis. I spoke with Dr. Dotson in radiology this morning. He recommends against interventional radiology drainage of this hematoma, due to concern that there would be loss of the tamponade effect from the hematoma and bleeding could resume. I am also concerned that surgical incision over the hematoma could result in bleeding that I could not control, and am also concerned about wound infection for this Morelle-Chance type lesion. Recommend vascular surgery consult for evaluation and treatment of the hematoma. (2) Closed fracture of inferior pubic ramus: Plan: For her pubic rami fractures, patient can be weightbearing as tolerated with a walker. However recommend minimal activity given her hematoma. DVT prophylaxis at the discretion of the internal medicine service, however given the hematoma benefits of holding anticoagulation likely outweigh the risks. She can follow- up in the orthopedic clinic as an outpatient for follow-up of her pubic rami fractures 4 weeks after injury with repeat pelvis x-rays to be done at that time. Orthopedic surgery will sign off on this patient. Feel free to contact Ortho with any questions or concerns. Admission and Anticipated Discharge Date Admission Date: August 01, 2024 Subjective Patient seen and examined on a.m. rounds. She reports her left hip is feeling better. She feels like the swelling has come down from yesterday. She rates her pain as 5 out of 10. Denies numbness or tingling down her leg. Physical Exam Physical Exam: On exam she has a large hematoma over the left lateral hip and buttock. There is an area of superficial epidermal skin loss approximately 5 x 3 cm. Subcutaneous bruising in this area stable compared to yesterday. She has some mild medial thigh bruising that appeared today according to nursing. She is able to stand at the bedside with a walker assistance. Neurovascular intact. Results & Data Vital Signs (Past 12 Hours) Vital Signs Temp Pulse Pulse Resp BP Pulse Ox O2 Del Method 08/04/24 08:59 Room Air 08/04/24 07:35 36.5 C 74 143/70 H 92 Room Air 08/04/24 06:38 77 08/04/24 04:20 36.7 C 78 20 165/75 H 96 Room Air Laboratory Results Hemoglobin this morning was up to 9 after blood transfusion yesterday. It was 7 the day before. Diagnostic Findings Repeat CT scan done yesterday shows no interval increase in the size of the hematoma, perhaps slightly smaller even. No active extravasation on the contrast images.
--- NOTE | 2024-08-05 06:44 | Hospitalist Progress Note ---
Date of Service August 05, 2024 Assessment & Plan (1) Closed fracture of pubic ramus: (2) Leukocytosis: Plan 83-year-old female PMHx Graves' disease, H/o BCA, OA, hypothyroidism, dyslipidemia, HTN and bilateral carotid stenosis presenting to ED via EMS from [facility] [place] after a fall from standing. She was in the bathroom and slipped on water when she fell, landing on her left side. Did not hit head, only takes aspirin and no additional blood thinner. Imaging revealed fractures of the L superior and inferior pubic rami, and pelvis CTA reveals large L subcutaneous hematoma without active extravasation, does reveal left obturator ring fracture without widening of pubic symphysis. Does have white count 13.89, but no infectious symptoms. Will provide with dose of antibiotics to cover for underlying infection and given overall ill appearance. #Fracture, L superior and inferior pubic rami - Age-related osteoporosis with current pathological fracture L superior and inferior pubic rami -repeat CTA 08/03 - negative for acute extravasation and stable hematoma when compared to pelvic CTA on 08/01. -XR - fx of L superior and inferior pubic rami, L knee OA -ortho consulted 08/03 - hold any anticoagulants. recommend against surgery due to risk of infection. recommend IR drainage - transfer to [facility] -discussed with our IR team 08/03 who advised transfer to tertiary care center and that upon review of CTA from 08/01 it did appear to have active bleeding -transfer center notified and attempt to transfer patient [place] [facility] [place] [facility] [place] and recommended a pressure dressing given negative CTA findings - if hgb continues to drop or patient requires multiple transfusions, may need to re- apply for transfer. -Pain management ordered with Tylenol and ibuprofen. - PT/OT recommending rehab -Patient wishes to hold off on transfer at this time. Spoke with orthopedics today who states that radiology recommends against IR drainage of this hematoma. Also concerns over surgical intervention with this hematoma. -Ortho consulted vascular surgery for evaluation and treatment of hematoma. Waiting on vascular surgery to see patient. -Ortho also recommends holding anticoagulation for hematoma and have patient follow-up in 4 weeks for repeat pelvic x-rays. #Leukocytosis - Patient without infectious symptoms to include URI symptoms, cough, fever/chills, or LUTS. Given clinical picture of dizziness and pallor appearance as well as presence of leukocytosis, patient agreeable to empiric dose of antibiotics. - CXR without active disease - UA + --> urine culture showing probable skin mejia. - CBC w/ resolution of leukocytosis - Ceftriaxone 2 g IV continued. #Acute blood loss anemia trend H/H - hgb currently 9.8 status post 1 packed red blood cells. plan as above. Chronic conditions: HLD- Atorvastatin HTN- Amlodipine, carvedilol Vascular disease- 08/[address] revealing aortic atherosclerosis; follows w/ PCP to monitor BCA- s/p L mastectomy + adriamycin Graves disease- S/p radioactive iodine therapy Dispo: Admit, med/sx VTE prophylaxis: SCDs, no chemical prophylaxis added at time of admission given presence of large hematoma Dispo: Pending SNF placement. Admission and Anticipated Discharge Date Admission Date: August 01, 2024 Supervising Physician Co-Signing Physician Notes Attending Physician Supervision Note: I independently interviewed and examined the patient and verified the petit history and physical, reviewed labs and image studies and agree with findings and care plan noted above. Sitting in chair. with her. Pain overall controlled. vitals noted nad heent nc at mmm breathing unlabored no accessory muscles good effort skin no rashes no pallor or icterus neuro no focal deficits. Left superior/Inferior ramus fracture Left hip hematoma -ortho eval done. -pain control -hold anticoagulation. -PT/OT placement Acute blood loss anemia - stable h/h SCD Subjective Patient seen bedside this morning. States that her hematoma has been improving. She is having less pain. But still having significant pain with movement. She also states that she has been having some bowel movements and wishes to stop MiraLAX at this time. Review of Systems Review of Systems: All systems reviewed & are unremarkable except as noted in Subjective Physical Exam Physical Exam: Constitutional: well-appearing, no acute distress HEENT: NCAT, no conjunctival injection CV: regular rhythm, no murmur appreciated, extremities well-perfused, no LE edema Resp: CTABL, no wheezes/rales/rhonchi appreciated, no increased work of breathing GI: soft, nondistended, nontender, BS normoactive MSK: Large hematoma over the left hip and buttocks. Superficial open wound over area. Neuro: alert, oriented, no focal neurologic deficit appreciated Results & Data Results & Data Vital Signs (Past 12 Hours) Vital Signs Temp Pulse Pulse Resp BP Pulse Ox O2 Del Method 08/05/24 03:57 36.5 C 81 20 164/73 H 95 Room Air 08/04/24 23:50 36.7 C 73 20 158/80 H 95 Room Air 08/04/24 23:47 73 08/04/24 20:00 Room Air 08/04/24 19:58 36.7 C 86 20 171/76 H 97 Room Air
[2024-08-05 07:46] LABS: Hematocrit (blood only) 29.5 % (37.0-47.0); Hemoglobin 9.8 g/dl (12.0-16.0); Mean Corpuscular Hemoglobin 30.1 pg (25.0-34.0); Mean Corpuscular Hgb Conc 33.2 g/dL (32.0-36.0); Mean Corpuscular Volume 90.5 fL (80.0-100.0); Mean Platelet Volume 9.3 fL (9.4-12.4); Platelet Count 238 K/uL (130-400); RDW Coefficient of Variation 13.3 % (11.5-14.5); Red Blood Count 3.26 M/uL (4.20-5.40); White Blood Count 8.03 K/ul (4.8-10.8)
[2024-08-05 08:04] LABS: BUN Creatinine Ratio 27.8 (10-20); Calcium 9.1 mg/dl (8.6-10.3); Creatinine Clr Calc Pharmacy 47.6 ml/min
[2024-08-06 07:20] LABS: Albumin Globulin Ratio 1.5 (0.9-2); Albumin Level 3.6 gm/dl (3.4-5.0); BUN Creatinine Ratio 26.9 (10-20); Bilirubin,Total 1.3 mg/dl (0.2-1.0); Calcium 9.2 mg/dl (8.6-10.3); Creatinine Clr Calc Pharmacy 51.2 ml/min; Globulin 2.4 gm/dl (2.5-4.0); Magnesium 2.2 mg/dl (1.7-2.4)
--- NOTE | 2024-08-06 07:57 | Hospitalist Progress Note ---
Date of Service August 06, 2024 Assessment & Plan (1) Closed fracture of pubic ramus: (2) Leukocytosis: Plan 83-year-old female PMHx Graves' disease, H/o BCA, OA, hypothyroidism, dyslipidemia, HTN and bilateral carotid stenosis presenting to ED via EMS from [facility] [place] after a fall from standing. She was in the bathroom and slipped on water when she fell, landing on her left side. Did not hit head, only takes aspirin and no additional blood thinner. Imaging revealed fractures of the L superior and inferior pubic rami, and pelvis CTA reveals large L subcutaneous hematoma without active extravasation, does reveal left obturator ring fracture without widening of pubic symphysis. Does have white count 13.89, but no infectious symptoms. Will provide with dose of antibiotics to cover for underlying infection and given overall ill appearance. #Fracture, L superior and inferior pubic rami - Age-related osteoporosis with current pathological fracture L superior and inferior pubic rami -Expect spontaneous resolution of hematoma with time. -repeat CTA 08/03 - negative for acute extravasation and stable hematoma when compared to pelvic CTA on 08/01. -XR - fx of L superior and inferior pubic rami, L knee OA -ortho consulted 08/03 - hold any anticoagulants. recommend against surgery due to risk of infection. recommend IR drainage - transfer to [facility] -discussed with our IR team 08/03 who advised transfer to tertiary care center and that upon review of CTA from 08/01 it did appear to have active bleeding -transfer center notified and attempt to transfer patient to [facility] [place] [facility] [place] and recommended a pressure dressing given negative CTA findings - if hgb continues to drop or patient requires multiple transfusions, may need to re- apply for transfer. -Pain management ordered with Tylenol and ibuprofen. - PT/OT recommending rehab #Leukocytosis - Patient without infectious symptoms to include URI symptoms, cough, fever/chills, or LUTS. Given clinical picture of dizziness and pallor appearance as well as presence of leukocytosis, patient agreeable to empiric dose of antibiotics. - CXR without active disease - UA + --> urine culture showing probable skin mejia. - CBC w/ resolution of leukocytosis - Ceftriaxone 2 g IV continued. #Acute blood loss anemia trend H/H - status post 1 packed red blood cells. plan as above. Chronic conditions: HLD- Atorvastatin HTN- Amlodipine, carvedilol Vascular disease- 08/[address] revealing aortic atherosclerosis; follows w/ PCP to monitor BCA- s/p L mastectomy + adriamycin Graves disease- S/p radioactive iodine therapy Dispo: Admit, med/sx VTE prophylaxis: SCDs, no chemical prophylaxis added at time of admission given presence of large hematoma Dispo: Pending SNF placement. Admission and Anticipated Discharge Date Admission Date: August 01, 2024 Supervising Physician Co-Signing Physician Notes I personally examined the patient and verified all petit points of history and exam, discussed case, and agree with decision making with Dr Worrell feeling okay overall. Weak. Pain under reasonable control. Extensive discussion with patient and answered all questions to the best my ability. Vitals noted, in general she is awake and alert pleasant no distress. HEENT normocephalic atraumatic mucous membranes moist. Breathing unlabored no accessory muscle use good effort. Skin without rashes pallor or icterusdoes have diffuse bruising over left hip, superficial abrasions with a little bit of seeping at what appears to be the point of contact. This is dressed. Skin is not tense or extremely tender. No erythema. Left superior/inferior ramus fracture, left hip hematoma, probable osteoporotic fractures from fallappreciate hr shared services consultant input. Supportive care/conservative management. Right now would view the hip as a superficial wound issue and continue to follow. Pain seems to be reasonably controlled. PT/OT eval and treat. Anticipate placement at [facility] once they are able to take her. Acute blood loss anemiafrom hip hematomaoverall stable. Continue to follow. Pharmacologic DVT prophylaxis obviously contraindicated due to the hematoma. Ambulation/SCDs for prophylaxis currently. Subjective Patient seen and evaluated at bedside this morning. No acute events overnight. Feeling overall improved today. Review of Systems Review of Systems: reviewed, per HPI Physical Exam Physical Exam: Constitutional: age appropriate, no acute distress HEENT: NCAT, no conjunctival injection CV: well perfused Resp: no increased WOB GI: nondistended MSK: no gross deformities appreciated Skin: significant but improving hematoma overlying L hip region Neuro: alert, oriented, no focal neurologic deficit appreciated Results & Data Results & Data Vital Signs (Past 12 Hours) Vital Signs Temp Pulse Pulse Resp BP Pulse Ox O2 Del Method 08/06/24 07:37 36.6 C 81 19 148/71 H 94 Room Air 08/06/24 03:59 36.7 C 80 20 170/71 H 96 Room Air 08/05/24 23:59 94 H 08/05/24 23:41 36.6 C 77 20 174/82 H 97 Room Air 08/05/24 20:00 Room Air Resident Activity Tracking Resident Involvement: Resident Care Provided Care Provided: Adult Hospital Medicine
[2024-08-06 07:59] LABS: Basophils # (auto) 0.05 K/uL (0.00-0.20); Basophils % (auto) 0.6 %; Eosinophils # (auto) 0.19 K/uL (0.00-0.50); Eosinophils % (auto) 2.2 %; Hematocrit (blood only) 29.7 % (37.0-47.0); Immature Granulocytes # (auto) 0.04 K/uL (0.01-0.20); Immature Granulocytes % (auto) 0.5 %; Lymphocytes # (auto) 0.83 K/uL (1.20-3.40); Lymphocytes % (auto) 9.8 %; Mean Corpuscular Hgb Conc 33.7 g/dL (32.0-36.0); Mean Platelet Volume 9.7 fL (9.4-12.4); Monocytes # (auto) 0.89 K/uL (0.11-0.59); Monocytes % (auto) 10.5 %; Neutrophils # (auto) 6.47 K/uL (1.40-6.50); Neutrophils % (auto) 76.4 %; Platelet Count 265 K/uL (130-400); RDW Coefficient of Variation 13.1 % (11.5-14.5); RDW Standard Deviation 43.4 fL (36.4-46.3); Red Blood Count 3.23 M/uL (4.20-5.40); White Blood Count 8.47 K/ul (4.8-10.8)
--- NOTE | 2024-08-06 10:44 | Consultation ---
Date of Consultation August 06, 2024 Assessment & Plan (1) Hematoma of left hip: Pt with large traumatic hematoma of L hip, significant ecchymosis/tenderness, with superficial abrasion type open area. Ecchymosis already becoming yellow in color. Hgb stable since transfusion 1 U PRBC, no active extravasation on CT. No indications for vascular surgical intervention at this time. Would recommend dressing to lateral hip open area for protection d/t fragile skin and small amt drainage. Discussed wtih RN. Please call if needed. History of Present Illness Reason for Consultation: hematoma Attending Physician: Marco A Montaño DO History of Present Illness 83 yo f with hx of breast ca, graves dz, osteoarthritis, dyslipidemia, kidney stones, HTN, carotid stenosis, admitted with L pubic bone fracture after a fall, seen in consultation today for associated hematoma. Pt states she lost her balance and fell. Admits pain L hip and swelling. Did require transfusion x1 U PRBC, but hgb stable since. Denies MÁRQUEZ, fever, chest pain, SOB, abd pain, N/V, rest pain, claudication, other complaints. Serial CT demonstrates large L sided hematoma, without active extravasation. Allergies Allergy/AdvReac Type Severity Reaction Status Date / Time IRVING Inhibitors Allergy Severe ANGIO EDEMA Verified 08/01/24 17:12 ciprofloxacin Allergy Severe SISTER Verified 02/10/24 09:33 ALMOST . DOESN'T WANT THE RISK lisinopril Allergy Severe ANGIOEDEMA/ Verified 08/01/24 17:09 SWELLING propylthiouracil Allergy Mild Rash Verified 08/01/24 17:08 doxycycline Allergy Unknown UNKNOWN Verified 02/10/24 09:33 Jwpskpl-IGM-LhB Reductase Allergy Unknown MUSCLE PAIN Verified 08/01/24 17:08 Inhibitor [Gozuyqh-Vzq-Zwn Reductase Inhibitor] Sulfa (Sulfonamide Allergy Unknown itching, Verified 02/10/24 09:33 Antibiotics) RASH adhesive tape Allergy Redness of Verified 08/01/24 17:08 Skin sulfamethoxazole Allergy Rash Verified 08/01/24 17:09 [From Bactrim] trimethoprim [From Bactrim] Allergy Rash Verified 08/01/24 17:09 morphine AdvReac Drowsy Verified 08/01/24 17:58 Home Medications Medication Instructions Recorded Confirmed Type atorvastatin 10 mg tablet 10 mg PO DAILY 08/13/20 08/01/24 History aspirin 81 mg tablet,delayed 81 mg PO Q OTHER DAY 11/20/20 08/01/24 History release carvedilol 3.125 mg tablet 3.125 mg PO QPM 10/18/22 08/01/24 History carvedilol 6.25 mg tablet 6.25 mg PO QAM 10/18/22 08/01/24 History coenzyme Q10 200 mg capsule 200 mg PO BID 08/01/24 08/01/24 History flaxseed 1 ea PO DAILY 08/01/24 08/01/24 History levothyroxine 75 mcg tablet 75 mcg PO 6XWK 08/01/24 08/01/24 History (Synthroid) [id number] 1 tab PO DAILY 08/01/24 08/01/24 History 18 mg-10 mg-45 mg-5 mg-250 mg tablet (B Complex w-Vit C) Patient History Medical History Back pain Gross hematuria Bone anomaly Dysmetabolic syndrome Dysplastic nevus Elevated blood pressure, situational Lump of skin Lymphedema Migraines 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 Hypercholesteremia History of viral warts History of CHF (congestive heart failure) Surgical History H/O wisdom tooth extraction History of right-sided carotid endarterectomy S/P total abdominal hysterectomy 1980 History of surgery lymphadenectomy-1996 S/P section S/P left mastectomy 1996 Family History Father Myocardial infarction Emphysema lung Mother Myocardial infarction Sister Breast cancer Colorectal cancer Family/Other Heart disease Grandmother (Paternal) Breast cancer Denies family history of Ovarian cancer Prostate cancer Kidney stones Kidney disease Social History Smoking Status: Never smoker Cigarettes Per Day: tried cigarettes for one month during high school; Second Hand Exposure: No; Do You Dip or Chew Tobacco: No; Hx Alcohol Use: No Hx Substance Use: No Preferred Language: Qatari Communication Ability: Effective Visual Impairment: No Limitations Hearing Ability: Normal Coin Box Inspector Required: No Beliefs That Will Affect Care: None marital status: Current Living Situation: Spouse Current Living Situation Comment: Resides at [facility] current occupational status: retired 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 [employer] How many Children do You have: 3 Feels Safe at Home: Yes Diet: regular caffeine: Yes (1 coffee monthly) during the past year weight has: remained stable Dental Care, Regularly: Yes Physical Activity Frequency: Does not Exercise Seatbelt Use: always Sunscreen Use: Yes Do you think of yourself as: straight/heterosexual Gender Identity: Female Assistive Devices: Cane Review of Systems Review of Systems: All systems reviewed & are unremarkable except as noted in HPI & below Physical Exam Constitutional: WD/WN, vitals as above cooperative; not in distress Neck: trachea midline Respiratory: normal respiratory effort, lungs clear to auscultation Auscultation: + diminished lung sounds Cardiovascular: Rate/Rhythm: regular rate and regular rhythm Vessels: posterior tibial pulses present, dorsalis pedis pulses present and radial pulses present; + abnormal peripheral pulses Extremities: normal capillary refill Gastrointestinal (Abdomen): Inspection/Auscultation: abdomen normal to inspection (unable to perform complete abd exam with pt in chair) Musculoskeletal: Hip: + ecchymosis (L hip large hematoma, tender, serous seeping from superficial abrasion) Skin: no rashes, warm and dry (L hip hematoma) normal turgor Neurologic: moves all extremities and awake; no focal motor deficits and not confused Psychiatric: A+Ox3, euthymic affect Results & Data Vital Signs (Past 12 Hours) Vital Signs Temp Pulse Pulse Resp BP Pulse Ox O2 Del Method 08/06/24 07:37 36.6 C 81 19 148/71 H 94 Room Air 08/06/24 03:59 36.7 C 80 20 170/71 H 96 Room Air 08/05/24 23:59 94 H 08/05/24 23:41 36.6 C 77 20 174/82 H 97 Room Air
--- NOTE | 2024-08-06 17:48 | Billing Data ---
Date of Service August 06, 2024 Coding Level of Care Code 86735 SUB INP/OBS CARE MIN
[2024-08-07 08:07] LABS: Basophils # (auto) 0.06 K/uL (0.00-0.20); Basophils % (auto) 0.8 %; Eosinophils # (auto) 0.12 K/uL (0.00-0.50); Eosinophils % (auto) 1.5 %; Hematocrit (blood only) 28.4 % (37.0-47.0); Hemoglobin 9.6 g/dl (12.0-16.0); Immature Granulocytes # (auto) 0.05 K/uL (0.01-0.20); Immature Granulocytes % (auto) 0.6 %; Lymphocytes # (auto) 0.92 K/uL (1.20-3.40); Lymphocytes % (auto) 11.6 %; Mean Corpuscular Hemoglobin 31.2 pg (25.0-34.0); Mean Corpuscular Hgb Conc 33.8 g/dL (32.0-36.0); Mean Corpuscular Volume 92.2 fL (80.0-100.0); Mean Platelet Volume 9.4 fL (9.4-12.4); Monocytes # (auto) 0.99 K/uL (0.11-0.59); Monocytes % (auto) 12.4 %; Neutrophils # (auto) 5.82 K/uL (1.40-6.50); Neutrophils % (auto) 73.1 %; Platelet Count 288 K/uL (130-400); RDW Coefficient of Variation 13.2 % (11.5-14.5); RDW Standard Deviation 42.2 fL (36.4-46.3); Red Blood Count 3.08 M/uL (4.20-5.40); White Blood Count 7.96 K/ul (4.8-10.8)
[2024-08-07 08:30] LABS: BUN Creatinine Ratio 29.9 (10-20); Calcium 9.2 mg/dl (8.6-10.3); Creatinine Clr Calc Pharmacy 44.6 ml/min
--- NOTE | 2024-08-07 09:17 | Discharge Summary ---
Date of Service August 07, 2024 Admission HPI Per Admitting Provider 83-year-old female PMHx Graves' disease, H/o BCA, OA, hypothyroidism, dyslipidemia, HTN and bilateral carotid stenosis presenting to ED via EMS from [facility] after a fall from standing. She was in the bathroom and slipped on water when she fell, landing on her left side. No symptoms prior to to include dizziness, chest pain, or palpitations. witnessed the event and helped her to sit up until EMS arrived. No seizure like activity or LOC. Was unable to ambulate on her own. Did not hit head, only takes aspirin and no additional blood thinner. Complaining of 8/10 hip pain at time of incident and currently. States that it is aching. Complaining of dizziness that feels like she is spinning, worsening since receiving pain medications. Having associated N/V since the medications as well. Denying chest pain, SOB, palpitations, D/C, abdominal pain, numbness/tingling, or LUTS. No additional infectious symptoms or F/C. Took daily medications. Please see Dr. Leonard's attestation for adjustments/additions to treatment plan. Admission Exam Per Admitting Provider General: Appearing uncomfortable Skin: Warm and dry, without rashes or lesions, appears pallor Head: Normocephalic, atraumatic Eyes: PERRL, conjunctivae clear, sclera non-icteric; EOM intact; wearing glasses ENT: External ear and ear canal without swelling; nose atraumatic; fair dentition, tongue normal appearance, pharynx normal without tonsillar swelling or exudate; oropharynx appearing dry Neck: Supple, no LAD; no JVD Cardio: RRR, no M/G/R, S1 and S2 normal Resp: No respiratory distress, Lungs CTA in all lobes bilaterally, no wheezes, rales, or rhonchi Abdomen: Soft, symmetric, nontender, some discomfort near L hip; no distention; No masses or hepatosplenomegaly; Bowel sounds normoactive MSK: No deformities, full ROM throughout; pulses palpable and equal; no edema. Neuro: Awake, alert; Muscle strength 5/5 bilaterally in UE/LE; Sensation intact bilaterally; CN intact Psych: Very quiet voice, closing eyes, appearing somewhat somnolent; states that this is NOT her baseline. present in room at time of visit. Principal Diagnosis Pubic rami fracture Discharge Exam Constitutional: age appropriate, no acute distress HEENT: NCAT, no conjunctival injection CV: well perfused Resp: no increased WOB GI: nondistended MSK: no gross deformities appreciated Skin: significant but improving hematoma overlying L hip region Neuro: alert, oriented, no focal neurologic deficit appreciated Discharge Data Allergies Allergy/AdvReac Type Severity Reaction Status Date / Time IRVING Inhibitors Allergy Severe ANGIO EDEMA Verified 08/01/24 17:12 ciprofloxacin Allergy Severe SISTER Verified 02/10/24 09:33 ALMOST . DOESN'T WANT THE RISK lisinopril Allergy Severe ANGIOEDEMA/ Verified 08/01/24 17:09 SWELLING propylthiouracil Allergy Mild Rash Verified 08/01/24 17:08 doxycycline Allergy Unknown UNKNOWN Verified 02/10/24 09:33 Mmlxxya-RTH-UnD Reductase Allergy Unknown MUSCLE PAIN Verified 08/01/24 17:08 Inhibitor [Wmbpzuf-Wqo-Mey Reductase Inhibitor] Sulfa (Sulfonamide Allergy Unknown itching, Verified 02/10/24 09:33 Antibiotics) RASH adhesive tape Allergy Redness of Verified 08/01/24 17:08 Skin sulfamethoxazole Allergy Rash Verified 08/01/24 17:09 [From Bactrim] trimethoprim [From Bactrim] Allergy Rash Verified 08/01/24 17:09 morphine AdvReac Drowsy Verified 08/01/24 17:58 Consultations 08/01/24 21:18 ED Decision to Admit Stat 08/03/24 10:14 Consult Orthopedic Surgery Routine 08/04/24 11:14 Consult Vascular Surgery Routine Ordered Studies 08/01/24 18:17 CT angio pelvis w con Stat 08/03/24 10:47 CTA pelvis w con [CT angio pelvis w con] Stat Hospital Course (1) Closed fracture of pubic ramus: (2) Leukocytosis: Plan 83-year-old female PMHx Graves' disease, H/o BCA, OA, hypothyroidism, dyslipidemia, HTN and bilateral carotid stenosis presenting to ED via EMS from [facility] after a fall from standing. She was in the bathroom and slipped on water when she fell, landing on her left side. Did not hit head, only takes aspirin and no additional blood thinner. Imaging revealed fractures of the L superior and inferior pubic rami, and pelvis CTA reveals large L subcutaneous hematoma without active extravasation, does reveal left obturator ring fracture without widening of pubic symphysis. Does have white count 13.89, but no infectious symptoms. Will provide with dose of antibiotics to cover for underlying infection and given overall ill appearance. #Fracture, L superior and inferior pubic rami - Age-related osteoporosis with current pathological fracture L superior and inferior pubic rami -Expect spontaneous resolution of hematoma with time no intervention indicated -repeat CTA 08/03 - negative for acute extravasation and stable hematoma when compared to pelvic CTA on 08/01. -XR - fx of L superior and inferior pubic rami, L knee OA -ortho consulted 08/03 - hold any anticoagulants. recommend against surgery due to risk of infection. recommend IR drainage - transfer to [facility] -discussed with our IR team 08/03 who advised transfer to tertiary care center and that upon review of CTA from 08/01 it did appear to have active bleeding -transfer center notified and attempt to transfer patient to [facility] - [facility] denied transfer and recommended a pressure dressing given negative CTA findings - if hgb continues to drop or patient requires multiple transfusions, may need to re- apply for transfer. -Pain management ordered with Tylenol and ibuprofen. - PT/OT recommending rehab #Leukocytosis - Patient without infectious symptoms to include URI symptoms, cough, fever/chills, or LUTS. Given clinical picture of dizziness and pallor appearance as well as presence of leukocytosis, patient agreeable to empiric dose of antibiotics. - CXR without active disease - UA + --> urine culture showing probable skin mejia. - CBC w/ resolution of leukocytosis - Ceftriaxone 2 g IV continued. #Acute blood loss anemia trend H/H - status post 1 packed red blood cells. plan as above. Chronic conditions: HLD- Atorvastatin HTN- Amlodipine, carvedilol Vascular disease- 08/[address] revealing aortic atherosclerosis; follows w/ PCP to monitor BCA- s/p L mastectomy + adriamycin Graves disease- S/p radioactive iodine therapy Dispo: Admit, med/sx VTE prophylaxis: SCDs, no chemical prophylaxis added at time of admission given presence of large hematoma Dispo: Pending SNF placement. Total Time Total Time Spent Total Time Spent (In Minutes): see attending documentation Discharge Plan Discharge Items Patient Disposition: Transfer [facility] Fac Reason For Visit: FRACTURE, L PUBIC RAMI Discharge Diagnosis: L pubic rami fracture Activity: Resume your previous activity Activity Comment: as tolerated with physical therapy Non-emergency contact: Primary Care Provider Call non-emergency contact if: you have any medication questions, your symptoms worsen, your pain is not controlled and your pain is worsening Follow-up/Referrals: Ed Sánchez PA-C [Physician Cement Kiln Operator] - 09/04/24 2:30 pm Dheeraj Cancino MD [Primary Care Provider] - Diet: Heart Healthy Addtl Attending Provider Instructions: You were admitted to the hospital for a fracture of your pelvis. You were treated with pain medication. Orthopedics did not feel that you need surgery for this. You also had a hematoma (large bruise) that was resolving by the time of discharge. We do not feel that you required any intervention. A discharge summary will be sent to your primary care physician to ensure continuity of care. Please bring this discharge summary with you to your next office appointment so that your provider can review it at that time. Follow-up appointments: Make a follow-up appointment with your PCP within the next week. It is very important that you follow up with them shortly after discharge from the hospital. You have an appointment with [facility] on 09/04/24 at 2:30pm. If you are unable to make this appointment, or have any other questions, their office can be reached at [phone]. Keep all your follow-up appointments as already scheduled. If you cannot make an appointment, notify your provider. Medications: Your medication list has been reviewed and reconciled upon discharge to ensure accuracy and continuity of care. An updated list of all your medications is included with your hospital discharge paperwork. Please review this list closely, and make note of any changes. If you have any issues filling these prescriptions, please call [phone] and ask to leave a message for Dr. Edvin Worrell. Take your medications as instructed; do not skip a dose of your medicines. Make sure all of your doctors know every medicine you are taking (including lclf-sef-sybizln medicines, vitamins, and supplements). Call your primary care provider before taking any new medicines (including ilfb-bxr-fbatbos medicines, vitamins, and supplements), because some of these may interact with your current medications, or may make your symptoms worse. Tell your primary care provider if you cannot afford your medications. CONTACT YOUR PRIMARY CARE PROVIDER if you experience any of the following: Increased pain The bruising on your thigh is getting worse Difficulty following your treatment plan, or difficulty taking medications CALL 911 OR GO TO THE EMERGENCY DEPARTMENT if you experience any of the following: Sudden, severe abdominal pain or nausea/vomiting Severe chest pain, or chest pain that radiates (moves) to your jaw or arm Sudden, severe shortness of breath or difficulty breathing Thank you for allowing us to participate in your care. Addtl Executive Director Sheltered Workshop Provider Instructions: Orthopedic Discharge Instructions: WBAT however may want to limit activity due to hematoma PT/OT - can do free hip/bilateral lower extremity range of motion exercises Pain control per primary service DVT prophylaxis per primary service Follow up as scheduled with [facility] regarding your sacral fractures Please call our office sooner @ [phone] if you have any questions or concerns Pending Studies at Discharge: No Stand-Alone Forms: My [facility] Skilled Items Patient informed of condition?: Yes DNR: Yes Discharge Level of Care: Skilled Communicable Disease: No Discharge Prognosis: Stable Lines: None Urinary Catheter: No Medications and DC Order Prescriptions: Continued atorvastatin 10 mg tablet 10 mg PO DAILY carvedilol 3.125 mg tablet 3.125 mg PO QPM Rx Instructions: takes in PM carvedilol 6.25 mg tablet 6.25 mg PO QAM Rx Instructions: takes in AM levothyroxine [Synthroid] 75 mcg Tablet 75 mcg PO 6XWK Rx Instructions: TUESDAY-TUESDAY...SKIP TUESDAY flaxseed Powder 1 ea PO DAILY coenzyme Q10 200 mg Capsule 200 mg PO BID B Complex w-Vit C [id number] mg Tablet 1 tab PO DAILY Held aspirin 81 mg tablet,delayed release (DR/EC) 81 mg PO Q OTHER DAY Hold Instructions: Resume on 09/07/24. After discussion with orthopedics and primary care you may resume this medication Discharge Orders: Discharge Order (Routine); Ordered 08/07/24 Ordered By: Edvin Worrell Admission Data Admit Date/Time: 08/01/24 22:19 Attending Provider: Marco A Montaño Admit Provider: Deanna Leonard Primary Care Provider: Dheeraj Cancino Other Providers: Deanna Leonard; Thom Sutton; Ilya Shepard; Latoya Luke; Honey Land; Vandana Rivera; Semaj Romero; Caron Valles; Marco A Zapata; Fernanda Rand; Kenny Higgins; Pablo Leonard; Daxa Rosado; Michel Leyva; Alejandra Mahmood; Jj Green; Justin Isaacs; Lexy Junior; Sadie Reed; Camilo Soto; Radhames Elena; Shyla Snowden; José Luis Mariano
--- NOTE | 2024-08-07 09:19 | Discharge Summary ---
Discharge Summary Date of Service August 07, 2024 Principal Dx & Hospital Course #1 = Principal Diagnosis (1) Closed fracture of pubic ramus: (2) Leukocytosis: Plan 83-year-old female PMHx Graves' disease, H/o BCA, OA, hypothyroidism, dyslipidemia, HTN and bilateral carotid stenosis presenting to ED via EMS from [facility] after a fall from standing. She was in the bathroom and slipped on water when she fell, landing on her left side. Did not hit head, only takes aspirin and no additional blood thinner. Imaging revealed fractures of the L superior and inferior pubic rami, and pelvis CTA reveals large L subcutaneous hematoma without active extravasation, does reveal left obturator ring fracture without widening of pubic symphysis. Does have white count 13.89, but no infectious symptoms. Will provide with dose of antibiotics to cover for underlying infection and given overall ill appearance. #Fracture, L superior and inferior pubic rami - Age-related osteoporosis with current pathological fracture L superior and inferior pubic rami -Expect spontaneous resolution of hematoma with time. d/w pt that this may take several months. small area of compromised skin - would manage as superficial wound/ongoing wound care -repeat CTA 08/03 - negative for acute extravasation and stable hematoma when compared to pelvic CTA on 08/01. -XR - fx of L superior and inferior pubic rami, L knee OA -outpatient bone health management -Pain management ordered with Tylenol and ibuprofen. - PT/OT ongoing at SNF #Leukocytosis - resolved. #Acute blood loss anemia trend H/H - status post 1 packed red blood cells. f/u as outpt Chronic conditions: HLD- Atorvastatin HTN- Amlodipine, carvedilol Vascular disease- 08/[address] revealing aortic atherosclerosis; follows w/ PCP to monitor BCA- s/p L mastectomy + adriamycin Graves disease- S/p radioactive iodine therapy Dispo:safe/stable for SNF today Notes For Next Care Provider Medication Changes From Visit see med rec Admission HPI Per Admitting Provider 83-year-old female PMHx Graves' disease, H/o BCA, OA, hypothyroidism, dyslipidemia, HTN and bilateral carotid stenosis presenting to ED via EMS from [facility] after a fall from standing. She was in the bathroom and slipped on water when she fell, landing on her left side. No symptoms prior to to include dizziness, chest pain, or palpitations. witnessed the event and helped her to sit up until EMS arrived. No seizure like activity or LOC. Was unable to ambulate on her own. Did not hit head, only takes aspirin and no additional blood thinner. Complaining of 8/10 hip pain at time of incident and currently. States that it is aching. Complaining of dizziness that feels like she is spinning, worsening since receiving pain medications. Having associated N/V since the medications as well. Denying chest pain, SOB, palpitations, D/C, abdominal pain, numbness/tingling, or LUTS. No additional infectious symptoms or F/C. Took daily medications. Please see Dr. Leonard's attestation for adjustments/additions to treatment plan. Discharge Exam gen aao mirela nad jayme gordon at mmm breathing unlabored no accessory muscles good effort sitting up in chair comfortable pleasant Updated Medication List Medication Instructions Recorded Confirmed Type atorvastatin 10 mg tablet 10 mg PO DAILY 08/13/20 08/01/24 History aspirin 81 mg tablet,delayed 81 mg PO Q OTHER DAY 11/20/20 08/01/24 History release carvedilol 3.125 mg tablet 3.125 mg PO QPM 10/18/22 08/01/24 History carvedilol 6.25 mg tablet 6.25 mg PO QAM 10/18/22 08/01/24 History coenzyme Q10 200 mg capsule 200 mg PO BID 08/01/24 08/01/24 History flaxseed 1 ea PO DAILY 08/01/24 08/01/24 History levothyroxine 75 mcg tablet 75 mcg PO [id number] 08/01/24 08/01/24 History (Synthroid) [id number] 1 tab PO DAILY 08/01/24 08/01/24 History 18 mg-10 mg-45 mg-5 mg-250 mg tablet (B Complex w-Vit C) Hospital Stay Data Consultations 08/01/24 21:18 ED Decision to Admit Stat 08/03/24 10:14 Consult Orthopedic Surgery Routine 08/04/24 11:14 Consult Vascular Surgery Routine Diagnostic Imagining Performed 08/01/24 18:17 CT angio pelvis w con Stat 08/03/24 10:47 CTA pelvis w con [CT angio pelvis w con] Stat Pending Results Patient Have Any Pending Studies at Discharge: No Discharge Instructions Given to Patient (Per Discharging Provider) You were admitted to the hospital for a fracture of your pelvis. You were treated with pain medication. Orthopedics did not feel that you need surgery for this. You also had a hematoma (large bruise) that was resolving by the time of discharge. We do not feel that you required any intervention. A discharge summary will be sent to your primary care physician to ensure continuity of care. Please bring this discharge summary with you to your next office appointment so that your provider can review it at that time. Follow-up appointments: Make a follow-up appointment with your PCP within the next week. It is very important that you follow up with them shortly after discharge from the hospital. You have an appointment with [facility] on 09/04/24 at 2:30pm. If you are unable to make this appointment, or have any other questions, their office can be reached at [phone]. Keep all your follow-up appointments as already scheduled. If you cannot make an appointment, notify your provider. Medications: Your medication list has been reviewed and reconciled upon discharge to ensure accuracy and continuity of care. An updated list of all your medications is included with your hospital discharge paperwork. Please review this list closely, and make note of any changes. If you have any issues filling these prescriptions, please call [phone] and ask to leave a message for Dr. Edvin Worrell. Take your medications as instructed; do not skip a dose of your medicines. Make sure all of your doctors know every medicine you are taking (including [id number] medicines, vitamins, and supplements). Call your primary care provider before taking any new medicines (including [id number]-[id number] medicines, vitamins, and supplements), because some of these may interact with your current medications, or may make your symptoms worse. Tell your primary care provider if you cannot afford your medications. CONTACT YOUR PRIMARY CARE PROVIDER if you experience any of the following: Increased pain The bruising on your thigh is getting worse Difficulty following your treatment plan, or difficulty taking medications CALL 911 OR GO TO THE EMERGENCY DEPARTMENT if you experience any of the following: Sudden, severe abdominal pain or nausea/vomiting Severe chest pain, or chest pain that radiates (moves) to your jaw or arm Sudden, severe shortness of breath or difficulty breathing Thank you for allowing us to participate in your care. Total Time Total Time Spent Total Time Spent (In Minutes): <30
[2024-08-07] MEDS: ACETAMINOPHEN 325 MG TAB PO PRN (10:21)
[2024-08-07 13:49] VITALS: PULSE 77
[2024-08-07 15:10] VITALS: BP 169/83; RESP 16; TEMP 97.7; O2SAT 98
== END 2024-08-07 15:44 | DRG 543 ==
LOC: ED 16:30 → 3N 22:19 → SUATTDRO 22:19 → 3N 08-02 00:39 → 2N 08-03 13:09